=== PATIENT | female | born 1960 | race Caucasian/White ===

== ENCOUNTER 2017-02-07 19:10 | Emergency (ER) | payer MEDICARE ==
[~2017-02-07] VITALS: Ht 160 cm; Wt 55.9 kg
[~2017-02-07 19:10] MED LIST: ALBU8.5H4 IH; BISA-67 PO; CARV12.5 PO; CHOL10008 PO; CYA1000I IM; DIGO125T73 PO; FENT-2 TRANSDERM; FLUT9.9S NS; FURO40TA4 PO; HYDR25CA PO; IPRA3AMP IH; LANS30CA PO; LISI2.5T PO; LORA1TAB PO; MAGN400T29 PO; MIRT30TA6 PO; MS15TCR PO; POLY17PO6 PO; PRAM0.5T3 PO; QUET100T PO; QUET25TA PO; VENL37.53 PO; WARF5TAB7 PO; ZIT250 PO; ZOF8 PO
[2017-02-07 19:42] VITALS: BP 125/82; PULSE 79; RESP 16; O2SAT 98
[2017-02-07 20:18] LABS: BASOPHILS % (AUTO) 0.6 % (0-3); EOSINOPHILS % (AUTO) 0 % (0-5); Mean Corpuscular Hemoglobin 27.1 pg (27.0-35.0); Mean Corpuscular Volume 81.1 fL (81-100); NEUTROPHILS % (AUTO) 57.3 % (40-74); Platelet Count 207 bil/L (150-400)
[2017-02-07 20:34] LABS: Magnesium 2.2 mg/dL (1.6-2.6)
--- NOTE | 2017-02-07 22:35 | ED.REPORT ---
HPI-General Illness Date of Service February 07, 2017 ED Provider: Nico SherO. This is a very pleasant 56-year-old female who presents with cough, sputum production and burning with urination. She states she has been coughing for the past several days. She has been compliant with her medications including her warfarin. She has not had any hemoptysis. She has not had any chest pain or shortness of breath. She states that she also has chronic rectal discharge related to a colonic mass that she is having addressed later this week. Nursing Notes Stated Complaint: POSSIBLE INFECTION ON BUM, TROUBLE BREATHING Chief Complaint: General Complaint Nursing Notes Reviewed: Yes Allergies: Coded Allergies: NSAIDS (Non-Steroidal Anti-Inflamma (Verified Allergy, Severe, 02/07/17) Quinolones (Verified Allergy, Severe, ? AVALOX, 02/07/17) ceftriaxone sodium (Verified Allergy, Severe, 02/07/17) codeine (Verified Allergy, Severe, 02/07/17) ibuprofen (Verified Allergy, Severe, 02/07/17) metoclopramide (Verified Allergy, Severe, 02/07/17) metoclopramide HCl (Verified Allergy, Severe, 02/07/17) moxifloxacin HCl (Verified Allergy, Severe, 02/07/17) naproxen (Verified Allergy, Severe, 02/07/17) prochlorperazine edisylate (Verified Allergy, Severe, 02/07/17) prochlorperazine maleate (Verified Allergy, Severe, 02/07/17) sumatriptan (Verified Allergy, Severe, 02/07/17) sumatriptan succinate (Verified Allergy, Severe, 02/07/17) latex (Verified Allergy, Intermediate, RASH,when latex is on her skin for days, 02/07/17) Cephalosporins (Verified Adverse Reaction, Severe, N/V, 02/07/17) prednisone (Verified Adverse Reaction, Severe, PSYCHOSIS, 02/07/17) prochlorperazine (Verified Adverse Reaction, Severe, AGITATION, 02/07/17) Uncoded Allergies: ADHESIVE TAPES (Allergy, Unknown, 12/24/14) Adhesive tape (Adverse Reaction, Intermediate, rash, 05/26/15) NSAIDS (Adverse Reaction, Unknown, lupus anticoagulation & bleeding disorder IGA defiency, 12/26/14) Scheduled Azithromycin (Zithromax) 250 Mg Tablet 250 MG PO mon,wed,fri Bisacodyl (Dulcolax) 5 Mg Tablet.dr 5 MG PO DAILY Carvedilol (Coreg) 12.5 Mg Tablet 12.5 MG PO BIDWM Cholecalciferol (Vitamin D3) (Vitamin D3) 1,000 Unit Tab.chew 1,000 UNIT PO DAILY Cyanocobalamin (Cyanocobalamin Injection) 1,000 Mcg/1 Ml Vial 1,000 MCG IM Monthly Digoxin (Digoxin) 125 Mcg Tablet 125 MCG PO DAILY Fentanyl 75 mcg/hr Patch (Fentanyl 75 mcg/hr Patch) 1 Each Patch.td72 1 PATCH TRANSDERM Q3D Fluticasone Propionate (Flonase Allergy Relief) 50 Mcg/Actuation [place].susp 1 ML NS BID Furosemide (Furosemide) 40 Mg Tablet 40 MG PO DAILY Hydroxyzine Pamoate (Vistaril) 25 Mg Capsule 25 MG PO QID Lansoprazole (Lansoprazole) 30 Mg Capsule.dr 30 MG PO DAILYAC Lisinopril (Lisinopril) 2.5 Mg Tablet 2.5 MG PO DAILY Lorazepam (Lorazepam) 1 Mg Tablet 1-2 MG PO 4xdaily Magnesium Oxide (Magox 400) 400 Mg Tablet 400 MG PO BID Mirtazapine (Mirtazapine) 30 Mg Tablet 60 MG PO HS Morphine Sulfate ER (MS Contin) 15 Mg Tablet.er 15 MG PO QID Polyethylene Glycol 3350 (Miralax) 17 Gm Powd.pack 17 GM PO MORNING Pramipexole Dihydrochloride (Mirapex) 0.5 Mg Tablet 0.5 MG PO HS Quetiapine Fumarate (Seroquel) 100 Mg Tablet 50 MG PO QAM AND NOON Quetiapine Fumarate (Seroquel) 100 Mg Tablet 200 MG PO HS Quetiapine Fumarate (Seroquel) 25 Mg Tablet 25 MG PO DINNER Venlafaxine ER (Effexor XR) 37.5 Mg Cap.er.24h 37.5 MG PO BID Warfarin Sodium (Warfarin Sodium) 5 Mg Tablet 5 MG PO DAILY Scheduled PRN Albuterol HFA (Albuterol HFA) 8.5 Gm Hfa.aer.ad 2 PUFF IH TID PRN PRN For Shortness of Breath Ipratropium/Albuterol Sulfate (Iprat-Albut 0.5-3(2.5) mg/3 mL Inhalant Soln) 3 Ml Ampul.neb 3 ML IH Q6 PRN PRN For Shortness of Breath Ondansetron (Zofran) 8 Mg Tab 8 MG PO QID PRN PRN For Nausea General Time Seen by MD: 22:34 Chief Complaint Cough Hx Obtained From: Patient Arrived By: Walk-in Sudden in Onset?: Yes Onset Occurred: 1 week ago Symptom Duration: Since onset Location: : Abdomen Quality: Painful Severity: Current: Moderate Severity: Maximum: Moderate Pertinent Negative: Relieved by nothing Context Related History: Reports Autoimmune disorder, Reports COPD, Reports Drug dependence Recent Healthcare: No recent doctor visit Past Medical History Past Medical History Notes: Pt hospitalized in May of 2015 for CP rule-out. Past Medical History History of chronic systolic and diastolic heart failure with AICD pacemaker History of a benign appearing pancreatic neoplasm (GI notes 11/2014 indicate stable over several years in size, although a recommendation for fine needle aspiration was made at that time) Lupus anticoagulation History of IgA deficiency Rectocele prolapse Hemorrhoids - with admission January 19 through January 25 for bleeding, and hemorrhoidectomy following a hemorrhoidectomy and pain H/o diverticulitis and C. Diff H/o pancreatitis H/o pericarditis History of prior C. difficile History of malabsorption History of chronic pain and narcotic use Colon mass Reports: COPD, Congestive heart failure, Hypertension Past Surgical History AICD pacemaker placed Bladder suspension Hemorrhoidectomy 12/27/14, status post rectal exam and flexible sigmoidoscopy under general anesthesia on 01/20/2015 for bleeding Sinus surgery Foot surgery Reports: Cholecystectomy, Hysterectomy, Tonsillectomy Smoking History Former Smoker Social History Alcohol Use: Denies alcohol use Drug Use: THC Ambulatory Status Independent Review of Systems + Greenish purulent rectal discharge Full Review of Systems Constitutional: Denies: Fever, Weakness - generalized Eyes: Denies: Blurred left, Blurred right Respiratory: Reports: Prod cough, green, Prod cough, yellow, Denies: Dyspnea on exertion, Hemoptysis Cardiovascular: Denies: Chest pain, Dyspnea on exertion GI: Reports: Nausea, Denies: Abdominal pain, Diarrhea, Vomiting Female: Reports: Urinary frequency, Denies: Flank pain Musculoskeletal: Denies: Back pain Complete sys rev & neg: except as marked. Physical Exam Vital Signs Vital Signs Date Time Temp Pulse Resp B/P Pulse Ox O2 Delivery O2 Flow Rate FiO2 5/9/17 01:55 36.9 75 15 124/78 98 Room Air 02/07/17 19:42 36.9 79 16 125/82 98 Room Air Initial VS: Reviewed Head / Eyes: Atraumatic, Normocephalic ENT: Conjunctiva normal, No scleral icterus Neck: Supple, Full range of motion Abdomen / GI: Soft, Non-tender Skin: Warm, Dry, No cyanosis Neurologic: Alert, Oriented, Nonfocal Psychiatric: Mood/affect normal, Behavior normal, Normal thought content Respiratory / Chest: No respiratory distress Crackles left base Cardiovascular: Heart rate NL, Regular rhythm, Heart sounds NL Rectum / Perineum: Atraumatic, No gross blood Interpretation & Diagnostics Lab Results Interpretation Result Diagram: 02/07/17200002/07/172000 Test 02/07/17 20:01 02/08/17 00:30 White Blood Count 5.0th/mm3 (3.8-10.1) Red Blood Count 4.54mil/mm3 (3.90-5.20) Hemoglobin 12.3g/dL (12.0-15.6) Hematocrit 36.8% (35.0-46.0) Mean Corpuscular Volume 81.1fL (81-100) Mean Corpuscular Hemoglobin 27.1pg (27.0-35.0) Mean Corpuscular Hemoglobin Concent 33.4% (32.0-37.0) Red Cell Distribution Width 14.7% (12.3-15.4) Platelet Count 207bil/L (150-400) Neutrophils (%) (Auto) 57.3% (40-74) Lymphocytes (%) (Auto) 36.1% (14-46) Monocytes (%) (Auto) 6.0% (4-12) Eosinophils (%) (Auto) 0% (0-5) Basophils (%) (Auto) 0.6% (0-3) Prothrombin Time 18.3sec (8.1-12.5) Prothromb Time International Ratio 1.69ratio D-Dimer < 0.50mg/L FEU (<0.50) Sodium Level 137mEq/L (134-144) Potassium Level 3.8mEq/L (3.5-5.2) Chloride Level 98mEq/L (97-108) Carbon Dioxide Level 27mmol/L (18-29) Blood Urea Nitrogen 14mg/dL (6-24) Creatinine 1.04mg/dL (0.57-1.00) Estimat Glomerular Filtration Rate 79mL/min (>59) Glucose Level 94mg/dL (60-99) Calcium Level 9.1mg/dL (8.5-10.1) Magnesium Level 2.2mg/dL (1.6-2.6) Total Bilirubin 0.3mg/dL (0.0-1.2) Aspartate Amino Transf (AST/SGOT) 14U/L (0-50) Alanine Aminotransferase (ALT/SGPT) 13U/L (0-32) Alkaline Phosphatase 92U/L (25-150) Total Protein 7.6g/dL (6.4-8.4) Albumin 3.6g/dL (3.4-5.0) Hold Rosario Top Tube Received (Received) Urine Color Dark yellow (YELLOW) Urine Appearance Hazy (CLEAR,HAZY) Urine pH 6.0 (5.0-8.0) Urine Specific [place] 1.025 (1.003-1.035) Urine Protein Negativemg/dL (NEG,TRACE) Urine Glucose (UA) Negativemg/dL (NEGATIVE) Urine Ketones Negativemg/dL (NEGATIVE) Urine Occult Blood Negative (NEGATIVE) Urine Nitrite Negative (NEGATIVE) Urine Bilirubin Negative (NEGATIVE) Urine Urobilinogen Normalmg/dL (NORMAL) Urine Leukocyte Esterase Small (NEGATIVE) Urine RBC 0-2/hpf (0-2) Urine WBC 11-50/hpf (0-5) Urine Epithelial Cells Moderate/hpf (NONE-MOD) Urine Crystals None seen (NONE SEEN) Urine Bacteria None/hpf (NONE-FEW) Urine Hyaline Casts None/lpf (NONE) Urine Granular Casts None seen (NONE SEEN) Urine Waxy Casts None seen (NONE SEEN) Urine Red Blood Cell Casts None seen (NONE SEEN) Urine White Blood Cell Casts None seen (NONE SEEN) Urine Mucus Present (None Seen) Urine Trichomonas None seen (NONE SEEN) Urine Yeast None (NONE SEEN) Urine Culture Reflexed Indicated X-Ray Chest Interpretation Chest Xray Interpretation: Nothing acute View: AP & lat Interpretation / Wet Read by: Wet read ED physician Re-Eval/Medical Decision Med Decision/Clinical Course Chest x-ray does not show any lobar infiltrate. No pneumothorax is seen either. Urinalysis is consistent with a urinary tract infection. Trupti will be medicated with Augmentin. This should cover both genitourinary and chest pathology. I will ask her to have very close outpatient follow-up. I considered pulmonary emboli in the differential diagnosis. Her Wells score is low risk. She has been on warfarin and she has a negative d-dimer and no pleuritic pain. I do not feel that CT imaging is indicated at this time. I feel that with a negative d-dimer and her Wells score PE can be adequately ruled out because she is low risk. I do recommend very close outpatient follow- up however. Going to increase her dose of warfarin for tonight and then she will have her INR repeated while on the course of antibiotics as instructed. Source of Hx: Old records Time of Eval: 01:35 Patient Status: Condition improved Re-Evaluation/Progress Note: Discussed with patient x-ray and lab results, diagnosis, and plan for discharge. Follow-up and return to the ER instructions given. Patient agrees with plan for care and all questions were addressed. Counseled Regarding: Diagnosis, Lab results, Need for follow-up, When/why to return to ED Discharge & Departure Primary Impression: UTI (urinary tract infection) Urinary tract infection type: acute cystitis Hematuria presence: without hematuria Qualified Code: N30.00 - Acute cystitis without hematuria Additional Impression: Bronchitis Disposition: Home Discharge Condition All VS Reviewed: Yes Condition: Improved Patient Instructions: Acute Bronchitis (GEN), Urinary Tract Infection in Women (GEN) Additional Instructions: Thank you for entrusting us with your care. Please take Augmentin twice daily for seven days. Drink plenty of liquids to remain hydrated. Call your primary care provider tomorrow for a follow-up appointment this week. Return to the ER with any new or worsening symptoms. Your INR is only 1.7. Take an additional dose of warfarin tonight. I would like you to have your INR checked in 3 days. The antibiotics may alter the efficacy. Also have it checked again at the end of the course of antibiotics. Discuss with your primary care physician or the warfarin clinic what to do with your warfarin dosing. You have received a dose of Dilaudid the emergency department. Do not take any other opiates. Do not take any other sedating medications. Referrals: Cristobal Berkowitz MD (PCP) Scribe Attestation Portions of this note were transcribed by Keiry Pederson. I, Dr. Hernandez, personally performed the history, physical exam, and medical decision-making; I reviewed and confirmed the accuracy of the information in the transcribed note. Signed by: Octavio Ross, 02/08/2017, 02:20 copies to: Cristobal Berkowitz MD, Todd P DO February 07, 2017 22:35 KEIRY PEDERSON February 07, 2017 23:26
[2017-02-07] MEDS ORDERED: HYDROmorphone 0.5 mg/0.5 mL iSecure Syringe IVPUSH ONE (23:25)
[2017-02-07 23:51] LABS: INR 1.69 ratio
[2017-02-08] MEDS ORDERED: Ondansetron 8 mg ODT Tablet PO ONE (00:45)
[2017-02-08 00:53] LABS: APPEARANCE,URINE HAZY (CLEAR,HAZY); COLOR,URINE DARK YELLOW (YELLOW); OCCULT BLOOD,URINE NEGATIVE (NEGATIVE); UROBILINOGEN,URINE NORMAL (NORMAL)
[2017-02-08] MEDS ORDERED: Amoxicillin-Clav 875-125 mg Tablet PO ONE (01:00)
[2017-02-08 01:55] VITALS: BP 124/78; PULSE 75; RESP 15; O2SAT 98
--- NOTE | 2017-02-09 11:46 | DRSVH ---
PROCEDURE: X-RAY CHEST, TWO VIEWS ([id number]) INDICATIONS: cough TECHNIQUE: 2 views of the chest were acquired. COMPARISON: [facility], CR, XR CHEST 2VW, 09/22/2015, 13:55. FINDINGS: Surgical changes and devices: Left cardiac pacer. Lungs and pleura: No pleural effusions or pneumothorax. Lungs are clear. Mediastinum: Mediastinal contours are normal. Heart size is normal. Bones and chest wall: No suspicious bony abnormalities. Soft tissues appear unremarkable. IMPRESSION: Stable normal chest with left cardiac pacer. Dictated by: Jose Szymanski M.D. on 02/08/2017 at 7:59 Approved by: Jose Szymanski M.D. on 02/08/2017 at 8:00
[2017-02-23] MEDS ORDERED: BISA-67 PO (15:22)
[2017-02-23] MEDS ORDERED: SENN-133 PO (15:22)
[2017-02-23] MEDS ORDERED: QUET100T PO (15:22)
[2017-02-23] MEDS ORDERED: ALBU8.5H2 INHALATION (15:22)
[2017-02-23] MEDS ORDERED: IPRA3AMP IH (15:22)
[2017-02-23] MEDS ORDERED: DOCU250C2 PO (15:22)
[2017-02-23] MEDS ORDERED: QUET25TA PO (15:22)
[2017-02-23] MEDS ORDERED: MIRT30TA PO (15:22)
[2017-03-02] MEDS ORDERED: HYDR-656 PO (13:35)
[2017-03-02] MEDS ORDERED: MIRT30TA PO (13:35)
== END 2017-02-08 01:55 | disposition home or self-care (01) ==
LOC: SED 19:10
DX: N30.00 Acute cystitis without hematuria (principal); J44.0 Chronic obstructive pulmonary disease with (acute) lower respiratory infection; I10 Essential (primary) hypertension; I50.9 Heart failure, unspecified; D68.62 Lupus anticoagulant syndrome; R30.0 Dysuria; K63.89 Other specified diseases of intestine; F12.10 Cannabis abuse, uncomplicated; Z95.0 Presence of cardiac pacemaker; Z87.891 Personal history of nicotine dependence; Z79.51 Long term (current) use of inhaled steroids; Z79.01 Long term (current) use of anticoagulants; Z88.6 Allergy status to analgesic agent; Z88.5 Allergy status to narcotic agent; Z88.1 Allergy status to other antibiotic agents; Z88.8 Allergy status to other drugs, medicaments and biological substances

== ENCOUNTER 2017-02-24 11:41 | Day surgery (SDC) | payer MEDICARE ==
[~2017-02-24] VITALS: Ht 162.6 cm; Wt 57.6 kg
[~2017-02-24 11:41] MED LIST changes: +ALBU8.5H2 INHALATION; -CARV12.5 PO; -DIGO125T73 PO; +DOCU250C2 PO; -HYDR25CA PO; +Lactated Ringer's 1,000 ML IV ONE; +MIRT30TA PO; +SENN-133 PO; -ZIT250 PO
[2017-02-24] MEDS ORDERED: Propofol 10,000 mCg/mL 20 mL Inj ONE (11:42)
[2017-02-24] MEDS ORDERED: Lidocaine PF 1% 30 mL Inj ONE (11:42)
[2017-02-24 11:58] VITALS: BP 109/71; PULSE 75; RESP 14; O2SAT 97
--- NOTE | 2017-02-24 12:30 | PCM.HPANE ---
Patient Data Date of Service: February 24, 2017 Surgeon Admitting Provider: Attending Provider:Mynor Cormier MD Primary Care Physician:Cristobal Berkowitz MD Other Provider:Tarun Booth Anesthesia Reason for Visit Colon Wall Thickening Ht/WT & BMI Height (Feet): 5 Height (Inches): 4 Weight (Kilograms): 57.61 Body Mass Index 21.00 Allergies Coded Allergies: NSAIDS (Non-Steroidal Anti-Inflamma (Verified Allergy, Severe, 02/07/17) Quinolones (Verified Allergy, Severe, ? AVALOX, 02/07/17) ceftriaxone sodium (Verified Allergy, Severe, 02/07/17) codeine (Verified Allergy, Severe, 02/07/17) ibuprofen (Verified Allergy, Severe, 02/07/17) metoclopramide (Verified Allergy, Severe, 02/07/17) metoclopramide HCl (Verified Allergy, Severe, 02/07/17) moxifloxacin HCl (Verified Allergy, Severe, 02/07/17) naproxen (Verified Allergy, Severe, 02/07/17) prochlorperazine edisylate (Verified Allergy, Severe, 02/07/17) prochlorperazine maleate (Verified Allergy, Severe, 02/07/17) sumatriptan (Verified Allergy, Severe, 02/07/17) sumatriptan succinate (Verified Allergy, Severe, 02/07/17) latex (Verified Allergy, Intermediate, RASH,when latex is on her skin for days, 02/07/17) diphenhydramine (Verified Allergy, Unknown, 02/23/17) levofloxacin (Verified Allergy, Unknown, 02/23/17) Cephalosporins (Verified Adverse Reaction, Severe, N/V, 02/07/17) prednisone (Verified Adverse Reaction, Severe, PSYCHOSIS, 02/07/17) prochlorperazine (Verified Adverse Reaction, Severe, AGITATION, 02/07/17) Uncoded Allergies: ADHESIVE TAPES (Allergy, Unknown, 12/24/14) Adhesive tape (Adverse Reaction, Intermediate, rash, 05/26/15) NSAIDS (Adverse Reaction, Unknown, lupus anticoagulation & bleeding disorder IGA defiency, 12/26/14) Past Anesthesia History Anesthesia History: Positive for:: Anesthesia Reactions (Per pt, coded X5 IN 2016. Records note brief wide complex tachycardia. CHF post-op), Denies:: Abnormal Airway, Difficult Intubation, Fam Anesthesia Reaction, Fam Malignant Hypertherm, Malignant Hyperthermia Diabetes History Hx Diabetes?: No MRSA MRSA: Yes (2015/[facility]MPI) Medications Blood Thinner: Coumadin Last Dose Blood Thinner: February 17, 2017 Home Meds Incl Beta Kishan: No Active Scripts Polyethylene Glycol 3350 (Miralax)17 Gm Powd.pack17 Gm PO MORNING 14 Days Prov:Ayden Brown MD 05/25/16 Reported Medications Sennosides (Senna)8.6 Mg Tablet8.6 Mg PO PRN For Constipation 02/23/17 Albuterol HFA (Proair HFA)8.5 Gm Hfa.aer.ad2 Puffs INHALATION Q4H #1 INHALER 02/23/17 Ipratropium/Albuterol Sulfate (Iprat-Albut 0.5-3(2.5) mg/3 mL Inhalant Soln)3 Ml Ampul.neb3 Ml IH Q6 Ref 0 02/23/17 Warfarin Sodium 5 Mg Tablet5 Mg PO DAILY Ref 0 06/02/16 Furosemide 40 Mg Fpjztr86 Mg PO DAILY 06/02/16 Lisinopril 2.5 Mg Tablet2.5 Mg PO DAILY Ref 0 06/02/16 Fentanyl 75 mcg/hr Patch 1 Each Patch.td721 Patch TRANSDERM Q3D Ref 0 06/02/16 Mirtazapine 30 Mg Ikvaef84 Mg PO HS Ref 0 11/12/15 Cholecalciferol (Vitamin D3) (Vitamin D3)1,000 Unit Tab.chew1,000 Unit PO DAILY 05/26/15 Fluticasone Propionate (Flonase Allergy Relief)50 Mcg/Actuation [place].susp1 Ml NS BID 05/26/15 Quetiapine Fumarate (Seroquel)100 Mg Bwfoti193 Mg PO HS #30 TABLET Ref 0 02/23/15 Quetiapine Fumarate (Seroquel)100 Mg Zdpzde30 Mg PO QAM AND NOON 30 Days Ref 0 02/23/15 Bisacodyl (Dulcolax)5 Mg Tablet.dr5 Mg PO DAILY Ref 0 02/23/15 Cyanocobalamin (Cyanocobalamin Injection)1,000 Mcg/1 Ml Vial1,000 Mcg IM Monthly 02/23/15 Morphine Sulfate ER (MS Contin)15 Mg Tablet.er15 Mg PO QID 30 Days Ref 0 02/14/15 Pramipexole Dihydrochloride (Mirapex)0.5 Mg Tablet0.5 Mg PO HS 02/14/15 Magnesium Oxide (Magox 400)400 Mg Jkcjbq869 Mg PO BID 02/14/15 Lorazepam 1 Mg Tablet1-2 Mg PO 4xdaily Ref 0 02/14/15 Lansoprazole 30 Mg Capsule.dr30 Mg PO DAILYAC #30 CAPSULE Ref 0 02/14/15 Ipratropium/Albuterol Sulfate (Iprat-Albut 0.5-3(2.5) mg/3 mL Inhalant Soln)3 Ml Ampul.neb3 Ml IH Q6 PRN For Shortness of Breath Ref 0 02/14/15 Albuterol HFA 8.5 Gm Hfa.aer.ad2 Puff IH TID PRN For Shortness of Breath #1 INHALER Ref 0 11/20/14 Venlafaxine ER (Effexor XR)37.5 Mg Cap.er.24h37.5 Mg PO BID #30 CAPSULE Ref 0 11/20/14 Ondansetron (Zofran)8 Mg Tab8 Mg PO QID PRN For Nausea 11/20/14 Discontinued Reported Medications Quetiapine Fumarate (Seroquel)100 Mg Dofonl598 Mg PO BID Ref 0 02/23/17 Mirtazapine (Remeron)30 Mg Kvgszx04 Mg PO HS Ref 0 02/23/17 Bisacodyl (Dulcolax)5 Mg Tablet.dr5 Mg PO DAILY PRN For Constipation Ref 0 02/23/17 Docusate Sodium 250 Mg Arpipal932 Mg PO DAILY PRN For Constipation Ref 0 02/23/17 Quetiapine Fumarate (Seroquel)25 Mg Gfcnln02 Mg PO DINNER 30 Days Ref 0 02/23/15 Quetiapine Fumarate (Seroquel)25 Mg Uaresl46 Mg PO TID Ref 0 02/23/17 Digoxin 125 Mcg Boijoz627 Mcg PO DAILY Ref 0 06/02/16 Azithromycin (Zithromax)250 Mg Tppbsb834 Mg PO mon,wed,fri Ref 0 06/02/16 Hydroxyzine Pamoate (Vistaril)25 Mg Tfjuutm09 Mg PO QID Ref 0 02/14/15 Discontinued Scripts Carvedilol (Coreg)12.5 Mg Zgtepm32.5 Mg PO BIDWM 30 Days Prov:Hollis Barrera MD 11/23/14 History History of ENT Problems?: Yes HEENT History: Positive for:: Sinus Problem (chronic sinus infections; 2 sinus OR's) Denies:: Abnormal Airway Cataracts Difficult Intubation Dysphagia Hearing Problem Denture Type: Full- Lower Teeth Condition: Missing Teeth Hx of Heart Problems?: Yes (regular follow-up with cardiology. Unclear what patient refers to with coding under anesthesia) Cardiovascular History: Positive for:: AICD Atrial Fibrillation Cardiac Surgery (AICD 2003, 2009) Congestive Heart Failure Edema Hypertension Irregular Heartbeat (did not noted when assessed) Pacemaker Denies:: Chest Pain Heart Murmur Thrombophlebitis Valvular Heart Disease Other Cardiac History: SEVERAL CARDIAC ABLATIONS Hx of Respiratory Problem?: Yes Respiratory History: Positive for:: COPD Dyspnea Pneumonia Denies:: Asthma Chest Surgery Cough Emphysema Hemoptysis Tuberculosis Hx Neurologic Problems?: Yes Neurological History: Positive for:: Headaches (migraines) Denies:: Alzheimer's Disease CVA Dementia Dizziness Parkinson's Disease Seizures Hx of GI Problems?: Yes Other GI Pertinent History: HX OF PANCREATIC MASS, HX OF HPYLORI AND CDIFF Hx of Problems?: No Genitourinary History: Positive for:: Urinary Tract Infection Denies:: HX of Hemodialysis Kidney Stones HX of Peritoneal Dialysis: No Female Hx: Positive for:: Endometriosis Pelvic Inflammatory Denies:: Currently (HYSTO) Problems with Breasts? Skin History: Denies:: History Skin Disorders? Pressure Ulcers Hx Musculoskeletal Problems?: Yes Musculoskeletal History: Positive for:: Back Injury Fibromyalgia Denies:: Joint Replacement Musculoskeletal Trauma Hx of Psycho/Social Problems?: Yes Psycho Social History: Positive for:: Anxiety Hx Depression Denies:: Bipolar Disorder Suicide Attempt Hx Surgeries?: Yes (AICD x2, CARDIAC ABLATION, SINUS, HYSTO, TONSIL, ORAL, BLADDER/UTERUS ) Hx Any Other Health Problems?: Yes Other History: Positive for:: Hospitalization Denies:: Cancer Endocrine Disease Thyroid Disease History Blood Transfusions: Denies:: Blood Transfuse Reaction Blood Transfusions Hx Diabetes: No Hx Alcohol Use: NoHx Substance Use: Yes (marijuana) Smoking Status: Former Smoker Have You Smoked inLast 12 mo: Yes (vape/e-cig only every once in awhile) Stop/Bang Treated for Sleep Apnea?: Yes Do You Have a CPAP Machine?: Yes (COMPLIANT WITH NIGHTLY USE) STACEY Risk Assessment: Low Risk, <3 Yes Risk Assessment Category Category 1A: Patient has history of documented sleep apnea, and HAS NOT received any narcotic, sedative or anesthesia administration during this stay. Category 1B: Patient has history of documented sleep apnea, and HAS received any narcotic , sedative or anesthesia administration during this stay Category 2: Patient has SUSPECTED Obstructive Sleep Apnea, and HAS received any narcotic , sedative or anesthesia administration during this stay. Category 3: Patient has SUSPECTED Obstructive Sleep Apnea and HAS NOT received narcotic, sedative or anesthesia administration during this stay. Category 4: Outpatient in Procedural Areas with known sleep apnea or who screen positive for High Risk via the STOP/BANG questionnaire. Exam Exam Vital Signs Vital Signs Date Time Temp Pulse Resp B/P Pulse Ox O2 Delivery O2 Flow Rate FiO2 02/24/17 11:58 36.5 75 14 109/71 97 Room Air General Appearance: Alert, Oriented X3, Cooperative HEENT/AIRWAY: MP 2, Neck Movement (OK), Mouth Opening (Wide) Lungs: Clear to Auscultation, Normal Air Movement Heart: Regular Rate/Rhythm, Normal S1, Normal S2 Meds/Labs/Diagnostics Admission Meds Current Medications Lactated Ringer's (Lr) 1,000 ml @ 10 mls/hr Q24H ONCE IV Last administered on 02/24/17t 12:22; Start 02/24/17 at 06:00; Stop 02/25/17 at 05:59 Diagnositcs Echo reviewed, EF 45%. Old records from [facility] reviewed, no evidence of "coding". Does show CHF during diagnosis Plan Impression Patient chart reviewed, patient interviewed and anesthestic plan with risks, benefits, and alternatives discussed, and informed consent obtained. NPO per Anesth. Guidelines: Yes ASA Physical Status: ASA3 Severe Disease Anesthetic Plan: MAC Bene/Risks/Altern/Consents: Yes HP Complete Prior to Induction: Yes Nirav Gaytan MD February 24, 2017 12:30
[2017-02-24 13:00] VITALS: BP 99/54; PULSE 79; RESP 16; O2SAT 97
[2017-02-24 13:10] VITALS: BP 109/60; PULSE 76; RESP 16; O2SAT 96
--- NOTE | 2017-02-24 13:11 | ENDO ---
[address] [address] ENDOSCOPY PROCEDURE PATIENT: KEYANNA MYERS : 1960 MR#: [id number] ADMIT: 02/24/2017 JOB ID: [id number] DATE: 02/24/2017 PROCEDURE: Colonoscopy. INDICATIONS: The patient had a CT scan which revealed colonic wall thickening. ANESTHESIA: Please see Dr. Nirav Gaytan's anesthesia report for details regarding ASA classification, Mallampati score, and medications. INSTRUMENT USED: [id number]. PREP QUALITY: Good. PROCEDURE DETAILS: After informed consent was obtained, the patient was brought into the GI suite, where she was placed on oxygen via nasal cannula and monitored with continuous pulse oximeter, telemetry, and blood pressure monitoring. A time-out was performed. Then, she was placed in a left lateral decubitus position and medications were administered for sedation. Digital rectal exam was performed, which was unremarkable. The colonoscope was then inserted into the rectum and advanced under direct visualization to the cecum, which was identified by the presence of the ileocecal valve and appendiceal orifice. Once the cecum was reached, colonoscope was withdrawn back into the rectum as the mucosa and lumen were examined. In the rectum, retroflexion was performed. Following retroflexion, remaining air in the rectum was suctioned, and procedure was completed. FINDINGS: Normal exam from rectum to cecum. IMPRESSION: Normal colonoscopy. RECOMMENDATIONS: 1. Keep appointment for EUS exam that has been scheduled. 2. Follow up in GI clinic after EUS exam. COMPLICATIONS: None. ESTIMATED BLOOD LOSS: Zero.
--- NOTE | 2017-02-24 13:12 | PCM.ANEP1 ---
Post Anesthesia PACU Phase 1 Assessment Date of Service: February 24, 2017 Vital Signs Vital Signs Date Time Temp Pulse Resp B/P Pulse Ox O2 Delivery O2 Flow Rate FiO2 02/24/17 13:00 36.4 79 16 99/54 97 Room Air 02/24/17 11:58 36.5 75 14 109/71 97 Room Air Anesthetic Administered: MAC Level of Alertness: Awake, talking NAVA's with Equal Strength: No Pain: Yes (chronic on fentanyl) Nausea or Vomiting: No CV Function & Hydration Stable: Yes Airway Device: Oxygen Delivery: Room Air Lungs: Normal Air Movement PACU Phase 2 Assessment Complications: No Follow up Care: No Patient Instructions Provided: N/A Nirav Gaytan MD February 24, 2017 13:12
[2017-02-24] MEDS ORDERED: Lactated Ringer's 1,000 ML IV SCH (13:18)
[2017-02-24 13:20] VITALS: BP 115/59; PULSE 78; RESP 16; O2SAT 96
[2017-02-24] MEDS ORDERED: Ondansetron 2 mg/mL 2 mL Inj IVPUSH PRN (13:20)
[2017-02-24 13:30] VITALS: BP 136/79; PULSE 70; RESP 16; O2SAT 98
[2017-02-24 13:40] VITALS: BP 104/71; PULSE 68; RESP 16; O2SAT 98
--- NOTE | 2017-02-24 15:15 | DRSVH ---
PROCEDURE: X-RAY ABDOMEN, ONE VIEW ([id number]) INDICATIONS: abdominal pain post colonoscopy TECHNIQUE: One view of the abdomen acquired. COMPARISON: [facility], CR, XR CHEST 1VW (PORTABLE), 05/27/2015, 6:13. [facility], CR, ABD/AP 1VW, 05/23/2013, 8:34. FINDINGS: Surgical changes and devices: Cholecystectomy clips and likely partially visualized pacer wires noted . Bowel: Bowel gas pattern is normal. Soft tissues: No suspicious abdominal calcifications. Visualized solid organ contours appear normal in size. Bones: No suspicious bony lesions. IMPRESSION: Unremarkable exam. Dictated by: Gwendolyn Joseph M.D. on 02/24/2017 at 15:13 Approved by: Gwendolyn Joseph M.D. on 02/24/2017 at 15:14
--- NOTE | 2017-02-24 16:27 | DRSVH ---
PROCEDURE: X-RAY CHEST ONE VIEW, PORTABLE ([id number]) INDICATIONS: abdominal pain TECHNIQUE: One view of the chest was acquired. COMPARISON: [facility], CR, XR CHEST 2VW, 02/07/2017, 23:31. FINDINGS: Surgical changes and devices: Pacemaker. Lungs and pleura: No pleural effusions or pneumothorax. Lungs are clear. Mediastinum: Mediastinal contours appear normal. Heart size is normal. Bones and chest wall: No suspicious bony lesions. Overlying soft tissues appear unremarkable. IMPRESSION: No acute pulmonary process. Dictated by: Gwendolyn Joseph M.D. on 02/24/2017 at 16:25 Approved by: Gwendolyn Joseph M.D. on 02/24/2017 at 16:26
[2017-03-02] MEDS ORDERED: MIRT30TA PO (13:35)
[2017-03-02] MEDS ORDERED: HYDR-656 PO (13:35)
== END 2017-02-24 23:59 | disposition home or self-care (01) ==
LOC: END 11:41
PROVIDERS: ATTEND Internal Medicine Gastroenterology
DX: K63.9 Disease of intestine, unspecified (principal); K86.9 Disease of pancreas, unspecified; I10 Essential (primary) hypertension; I50.9 Heart failure, unspecified; I47.2 Ventricular tachycardia; E78.5 Hyperlipidemia, unspecified; J44.9 Chronic obstructive pulmonary disease, unspecified; F41.8 Other specified anxiety disorders; G89.4 Chronic pain syndrome; F12.90 Cannabis use, unspecified, uncomplicated; Z95.0 Presence of cardiac pacemaker; Z86.14 Personal history of Methicillin resistant Staphylococcus aureus infection; Z79.01 Long term (current) use of anticoagulants; Z87.891 Personal history of nicotine dependence
CPT/HCPCS: 45378; 71010; 74000; J2405; J7120

== ENCOUNTER 2017-03-03 07:25 | Day surgery (SDC) | payer MEDICARE ==
[~2017-03-03] VITALS: Ht 162.6 cm; Wt 57.6 kg
[2017-03-03] VITALS (24 sets, daily range): BP systolic 108–170; BP diastolic 60–101; PULSE 65–83; RESP 14–16; O2SAT 96–100
--- NOTE | 2017-03-03 07:24 | PCM.HPANE ---
Patient Data Surgeon Admitting Provider: Attending Provider:Mynor Cormier MD Primary Care Physician:Cristobal Berkowitz MD Other Provider:Tarun Booth Anesthesia Reason for Visit Pancreatic Mass Ht/WT & BMI Body Mass Index Allergies Coded Allergies: NSAIDS (Non-Steroidal Anti-Inflamma (Verified Allergy, Severe, 02/07/17) Quinolones (Verified Allergy, Severe, ? AVALOX, 02/07/17) ceftriaxone sodium (Verified Allergy, Severe, 02/07/17) codeine (Verified Allergy, Severe, 02/07/17) ibuprofen (Verified Allergy, Severe, 02/07/17) metoclopramide (Verified Allergy, Severe, 02/07/17) metoclopramide HCl (Verified Allergy, Severe, 02/07/17) moxifloxacin HCl (Verified Allergy, Severe, 02/07/17) naproxen (Verified Allergy, Severe, 02/07/17) prochlorperazine edisylate (Verified Allergy, Severe, 02/07/17) prochlorperazine maleate (Verified Allergy, Severe, 02/07/17) sumatriptan (Verified Allergy, Severe, 02/07/17) sumatriptan succinate (Verified Allergy, Severe, 02/07/17) latex (Verified Allergy, Intermediate, RASH,when latex is on her skin for days, 02/07/17) diphenhydramine (Verified Allergy, Unknown, 02/23/17) levofloxacin (Verified Allergy, Unknown, 02/23/17) Cephalosporins (Verified Adverse Reaction, Severe, N/V, 02/07/17) prednisone (Verified Adverse Reaction, Severe, PSYCHOSIS, 02/07/17) prochlorperazine (Verified Adverse Reaction, Severe, AGITATION, 02/07/17) Uncoded Allergies: ADHESIVE TAPES (Allergy, Unknown, 12/24/14) Adhesive tape (Adverse Reaction, Intermediate, rash, 05/26/15) NSAIDS (Adverse Reaction, Unknown, lupus anticoagulation & bleeding disorder IGA defiency, 12/26/14) Past Anesthesia History Anesthesia History: Positive for:: Anesthesia Reactions, Denies:: Abnormal Airway, Difficult Intubation, Fam Anesthesia Reaction, Fam Malignant Hypertherm, Malignant Hyperthermia Diabetes History Hx Diabetes?: No MRSA MRSA: Yes (2015/) Medications Blood Thinner: Coumadin Active Scripts Polyethylene Glycol 3350 (Miralax)17 Gm Powd.pack17 Gm PO MORNING 14 Days Prov:Ayden Brown MD 05/25/16 Reported Medications Mirtazapine (Remeron)30 Mg Edqfah88 Mg PO HS Ref 0 03/02/17 Sennosides (Senna)8.6 Mg Tablet8.6 Mg PO PRN For Constipation 02/23/17 Albuterol HFA (Proair HFA)8.5 Gm Hfa.aer.ad2 Puffs INHALATION Q4H #1 INHALER 02/23/17 Ipratropium/Albuterol Sulfate (Iprat-Albut 0.5-3(2.5) mg/3 mL Inhalant Soln)3 Ml Ampul.neb3 Ml IH Q6 Ref 0 02/23/17 Warfarin Sodium 5 Mg Tablet5 Mg PO DAILY Ref 0 06/02/16 Furosemide 40 Mg Nhwpgi95 Mg PO DAILY 06/02/16 Lisinopril 2.5 Mg Tablet2.5 Mg PO DAILY Ref 0 06/02/16 Fluticasone Propionate (Flonase Allergy Relief)50 Mcg/Actuation [place].susp1 Ml NS BID 05/26/15 Quetiapine Fumarate (Seroquel)100 Mg Submpw859 Mg PO HS #30 TABLET Ref 0 02/23/15 Quetiapine Fumarate (Seroquel)100 Mg Mhokhy64 Mg PO QAM AND NOON 30 Days Ref 0 02/23/15 Bisacodyl (Dulcolax)5 Mg Tablet.dr5 Mg PO DAILY Ref 0 02/23/15 Cyanocobalamin (Cyanocobalamin Injection)1,000 Mcg/1 Ml Vial1,000 Mcg IM Monthly 02/23/15 Pramipexole Dihydrochloride (Mirapex)0.5 Mg Tablet0.5 Mg PO HS 02/14/15 Magnesium Oxide (Magox 400)400 Mg Reksnb640 Mg PO BID 02/14/15 Lorazepam 1 Mg Tablet1-2 Mg PO 4xdaily Ref 0 02/14/15 Ipratropium/Albuterol Sulfate (Iprat-Albut 0.5-3(2.5) mg/3 mL Inhalant Soln)3 Ml Ampul.neb3 Ml IH Q6 PRN For Shortness of Breath Ref 0 02/14/15 Venlafaxine ER (Effexor XR)37.5 Mg Cap.er.24h37.5 Mg PO BID #30 CAPSULE Ref 0 11/20/14 Ondansetron (Zofran)8 Mg Tab8 Mg PO QID PRN For Nausea 11/20/14 History History of ENT Problems?: Yes HEENT History: Positive for:: Sinus Problem (chronic sinus infections; 2 sinus OR's) Denies:: Abnormal Airway Cataracts Difficult Intubation Dysphagia Hearing Problem Denture Type: None Teeth Condition: Within Normal Limits Hx of Heart Problems?: Yes Cardiovascular History: Positive for:: AICD Atrial Fibrillation Cardiac Surgery (AICD 2003, 2009) Congestive Heart Failure Edema Hypertension Irregular Heartbeat (did not noted when assessed) Pacemaker Denies:: Chest Pain Heart Murmur Thrombophlebitis Valvular Heart Disease Hx of Respiratory Problem?: Yes Respiratory History: Positive for:: COPD Dyspnea Pneumonia Denies:: Asthma Chest Surgery Cough Emphysema Hemoptysis Tuberculosis Hx Neurologic Problems?: Yes Neurological History: Positive for:: Headaches (migraines) Denies:: Alzheimer's Disease CVA Dementia Dizziness Parkinson's Disease Seizures Hx of GI Problems?: Yes Hx of Problems?: No Genitourinary History: Positive for:: Urinary Tract Infection Denies:: HX of Hemodialysis Kidney Stones HX of Peritoneal Dialysis: No Female Hx: Positive for:: Endometriosis Pelvic Inflammatory Denies:: Currently (HYSTO) Problems with Breasts? Skin History: Denies:: History Skin Disorders? Pressure Ulcers Hx Musculoskeletal Problems?: Yes Musculoskeletal History: Positive for:: Back Injury Denies:: Joint Replacement Musculoskeletal Trauma Hx of Psycho/Social Problems?: Yes Psycho Social History: Positive for:: Anxiety Hx Depression Denies:: Bipolar Disorder Suicide Attempt Hx Surgeries?: Yes (AICD x2, CARDIAC ABLATION, SINUS, HYSTO, TONSIL, ORAL, BLADDER/UTERUS ) Hx Any Other Health Problems?: Yes Other History: Positive for:: Hospitalization Denies:: Cancer Endocrine Disease Thyroid Disease History Blood Transfusions: Denies:: Blood Transfuse Reaction Blood Transfusions Hx Diabetes: No Hx Alcohol Use: NoHx Substance Use: Yes (marijuana) Smoking Status: Former Smoker Have You Smoked inLast 12 mo: Yes (vape/e-cig only every once in awhile) Stop/Bang Risk Assessment Category Category 1A: Patient has history of documented sleep apnea, and HAS NOT received any narcotic, sedative or anesthesia administration during this stay. Category 1B: Patient has history of documented sleep apnea, and HAS received any narcotic , sedative or anesthesia administration during this stay Category 2: Patient has SUSPECTED Obstructive Sleep Apnea, and HAS received any narcotic , sedative or anesthesia administration during this stay. Category 3: Patient has SUSPECTED Obstructive Sleep Apnea and HAS NOT received narcotic, sedative or anesthesia administration during this stay. Category 4: Outpatient in Procedural Areas with known sleep apnea or who screen positive for High Risk via the STOP/BANG questionnaire. Exam Exam General Appearance: Other HEENT/AIRWAY: Other Plan Impression Patient chart reviewed, patient interviewed and anesthestic plan with risks, benefits, and alternatives discussed, and informed consent obtained. NPO per Anesth. Guidelines: Yes Other anesthesia provided by another physician, please disregard this note Jimmy June MD Mar 03, 2017 07:24 Plan Impression Patient chart reviewed, patient interviewed and anesthestic plan with risks, benefits, and alternatives discussed, and informed consent obtained. NPO per Anesth. Guidelines: Yes Jimmy June MD Mar 03, 2017 07:24
[~2017-03-03 07:25] MED LIST changes: -ALBU8.5H4 IH; -CHOL10008 PO; -DOCU250C2 PO; -FENT-2 TRANSDERM; +HYDR-656 PO; -LANS30CA PO; -MIRT30TA6 PO; -MS15TCR PO; -QUET25TA PO
--- NOTE | 2017-03-03 08:20 | PCM.HPANE ---
Patient Data Surgeon Admitting Provider: Attending Provider:Mynor Cormier MD Primary Care Physician:Cristobal Berkowitz MD Other Provider:Tarun Booth Anesthesia Reason for Visit Pancreatic Mass Ht/WT & BMI Height (Feet): 5 Height (Inches): 4 Weight (Kilograms): 57.61 Body Mass Index 21.00 Allergies Coded Allergies: NSAIDS (Non-Steroidal Anti-Inflamma (Verified Allergy, Severe, 02/07/17) Quinolones (Verified Allergy, Severe, ? AVALOX, 02/07/17) ceftriaxone sodium (Verified Allergy, Severe, 02/07/17) codeine (Verified Allergy, Severe, 02/07/17) ibuprofen (Verified Allergy, Severe, 02/07/17) metoclopramide (Verified Allergy, Severe, 02/07/17) metoclopramide HCl (Verified Allergy, Severe, 02/07/17) moxifloxacin HCl (Verified Allergy, Severe, 02/07/17) naproxen (Verified Allergy, Severe, 02/07/17) prochlorperazine edisylate (Verified Allergy, Severe, 02/07/17) prochlorperazine maleate (Verified Allergy, Severe, 02/07/17) sumatriptan (Verified Allergy, Severe, 02/07/17) sumatriptan succinate (Verified Allergy, Severe, 02/07/17) latex (Verified Allergy, Intermediate, RASH,when latex is on her skin for days, 02/07/17) diphenhydramine (Verified Allergy, Unknown, 02/23/17) levofloxacin (Verified Allergy, Unknown, 02/23/17) Cephalosporins (Verified Adverse Reaction, Severe, N/V, 02/07/17) prednisone (Verified Adverse Reaction, Severe, PSYCHOSIS, 02/07/17) prochlorperazine (Verified Adverse Reaction, Severe, AGITATION, 02/07/17) Uncoded Allergies: ADHESIVE TAPES (Allergy, Unknown, 12/24/14) Adhesive tape (Adverse Reaction, Intermediate, rash, 05/26/15) NSAIDS (Adverse Reaction, Unknown, lupus anticoagulation & bleeding disorder IGA defiency, 12/26/14) Past Anesthesia History Anesthesia History: Positive for:: Anesthesia Reactions, Denies:: Abnormal Airway, Difficult Intubation, Fam Anesthesia Reaction, Fam Malignant Hypertherm, Malignant Hyperthermia Diabetes History Hx Diabetes?: No MRSA MRSA: Yes (2015/ARM) Medications Blood Thinner: Coumadin Last Dose Blood Thinner: February 21, 2017 Active Scripts Polyethylene Glycol 3350 (Miralax)17 Gm Powd.pack17 Gm PO MORNING 14 Days Prov:Ayden Brown MD 05/25/16 Reported Medications Mirtazapine (Remeron)30 Mg Jkvicm23 Mg PO HS Ref 0 03/02/17 Sennosides (Senna)8.6 Mg Tablet8.6 Mg PO PRN For Constipation 02/23/17 Albuterol HFA (Proair HFA)8.5 Gm Hfa.aer.ad2 Puffs INHALATION Q4H #1 INHALER 02/23/17 Ipratropium/Albuterol Sulfate (Iprat-Albut 0.5-3(2.5) mg/3 mL Inhalant Soln)3 Ml Ampul.neb3 Ml IH Q6 Ref 0 02/23/17 Warfarin Sodium 5 Mg Tablet5 Mg PO DAILY Ref 0 06/02/16 Furosemide 40 Mg Qumwfa83 Mg PO DAILY 06/02/16 Lisinopril 2.5 Mg Tablet2.5 Mg PO DAILY Ref 0 06/02/16 Fluticasone Propionate (Flonase Allergy Relief)50 Mcg/Actuation [place].susp1 Ml NS BID 05/26/15 Quetiapine Fumarate (Seroquel)100 Mg Qneskf539 Mg PO HS #30 TABLET Ref 0 02/23/15 Quetiapine Fumarate (Seroquel)100 Mg Aomgoc91 Mg PO QAM AND NOON 30 Days Ref 0 02/23/15 Bisacodyl (Dulcolax)5 Mg Tablet.dr5 Mg PO DAILY Ref 0 02/23/15 Cyanocobalamin (Cyanocobalamin Injection)1,000 Mcg/1 Ml Vial1,000 Mcg IM Monthly 02/23/15 Pramipexole Dihydrochloride (Mirapex)0.5 Mg Tablet0.5 Mg PO HS 02/14/15 Magnesium Oxide (Magox 400)400 Mg Misddr237 Mg PO BID 02/14/15 Lorazepam 1 Mg Tablet1-2 Mg PO 4xdaily Ref 0 02/14/15 Ipratropium/Albuterol Sulfate (Iprat-Albut 0.5-3(2.5) mg/3 mL Inhalant Soln)3 Ml Ampul.neb3 Ml IH Q6 PRN For Shortness of Breath Ref 0 02/14/15 Venlafaxine ER (Effexor XR)37.5 Mg Cap.er.24h37.5 Mg PO BID #30 CAPSULE Ref 0 11/20/14 Ondansetron (Zofran)8 Mg Tab8 Mg PO QID PRN For Nausea 11/20/14 Discontinued Reported Medications hydrOXYzine Hcl (HydrOXYzine Hcl)25 Mg Sujsym51 Mg PO TID PRN For Itching Ref 0 03/02/17 Fentanyl 75 mcg/hr Patch 1 Each Patch.td721 Patch TRANSDERM Q3D Ref 0 06/02/16 Mirtazapine 30 Mg Hblaew01 Mg PO HS Ref 0 11/12/15 Cholecalciferol (Vitamin D3) (Vitamin D3)1,000 Unit Tab.chew1,000 Unit PO DAILY 05/26/15 Morphine Sulfate ER (MS Contin)15 Mg Tablet.er15 Mg PO QID 30 Days Ref 0 02/14/15 Lansoprazole 30 Mg Capsule.dr30 Mg PO DAILYAC #30 CAPSULE Ref 0 02/14/15 Albuterol HFA 8.5 Gm Hfa.aer.ad2 Puff IH TID PRN For Shortness of Breath #1 INHALER Ref 0 11/20/14 Quetiapine Fumarate (Seroquel)100 Mg Ctgpfd899 Mg PO BID Ref 0 02/23/17 Mirtazapine (Remeron)30 Mg Dkgdbf81 Mg PO HS Ref 0 02/23/17 Bisacodyl (Dulcolax)5 Mg Tablet.dr5 Mg PO DAILY PRN For Constipation Ref 0 02/23/17 Docusate Sodium 250 Mg Nufkzkl007 Mg PO DAILY PRN For Constipation Ref 0 02/23/17 Quetiapine Fumarate (Seroquel)25 Mg Cmcjgh26 Mg PO DINNER 30 Days Ref 0 02/23/15 History History of ENT Problems?: Yes HEENT History: Positive for:: Sinus Problem (chronic sinus infections; 2 sinus OR's) Denies:: Abnormal Airway Cataracts Difficult Intubation Dysphagia Hearing Problem Denture Type: None Teeth Condition: Within Normal Limits Hx of Heart Problems?: Yes Cardiovascular History: Positive for:: AICD Atrial Fibrillation Cardiac Surgery (AICD 2003, 2009) Congestive Heart Failure Edema Hypertension Irregular Heartbeat (did not noted when assessed) Pacemaker Denies:: Chest Pain Heart Murmur Thrombophlebitis Valvular Heart Disease Hx of Respiratory Problem?: Yes Respiratory History: Positive for:: COPD Dyspnea Pneumonia Denies:: Asthma Chest Surgery Cough Emphysema Hemoptysis Tuberculosis Hx Neurologic Problems?: Yes Neurological History: Positive for:: Headaches (migraines) Denies:: Alzheimer's Disease CVA Dementia Dizziness Parkinson's Disease Seizures Hx of GI Problems?: Yes Hx of Problems?: No Genitourinary History: Positive for:: Urinary Tract Infection Denies:: HX of Hemodialysis Kidney Stones HX of Peritoneal Dialysis: No Female Hx: Positive for:: Endometriosis Pelvic Inflammatory Denies:: Currently (HYSTO) Problems with Breasts? Skin History: Denies:: History Skin Disorders? Pressure Ulcers Hx Musculoskeletal Problems?: Yes Musculoskeletal History: Positive for:: Back Injury Denies:: Joint Replacement Musculoskeletal Trauma Hx of Psycho/Social Problems?: Yes Psycho Social History: Positive for:: Anxiety Hx Depression Denies:: Bipolar Disorder Suicide Attempt Hx Surgeries?: Yes (AICD x2, CARDIAC ABLATION, SINUS, HYSTO, TONSIL, ORAL, BLADDER/UTERUS ) Hx Any Other Health Problems?: Yes Other History: Positive for:: Hospitalization Denies:: Cancer Endocrine Disease Thyroid Disease History Blood Transfusions: Denies:: Blood Transfuse Reaction Blood Transfusions Hx Diabetes: No Hx Alcohol Use: NoHx Substance Use: Yes (marijuana) Smoking Status: Former Smoker Have You Smoked inLast 12 mo: Yes (vape/e-cig only every once in awhile) Stop/Bang Treated for Sleep Apnea?: Yes Do You Have a CPAP Machine?: Yes STACEY Risk Assessment: High Risk, =/>3 Yes Risk Assessment Category Category 1A: Patient has history of documented sleep apnea, and HAS NOT received any narcotic, sedative or anesthesia administration during this stay. Category 1B: Patient has history of documented sleep apnea, and HAS received any narcotic , sedative or anesthesia administration during this stay Category 2: Patient has SUSPECTED Obstructive Sleep Apnea, and HAS received any narcotic , sedative or anesthesia administration during this stay. Category 3: Patient has SUSPECTED Obstructive Sleep Apnea and HAS NOT received narcotic, sedative or anesthesia administration during this stay. Category 4: Outpatient in Procedural Areas with known sleep apnea or who screen positive for High Risk via the STOP/BANG questionnaire. Exam Exam Vital Signs Vital Signs Date Time Temp Pulse Resp B/P Pulse Ox O2 Delivery O2 Flow Rate FiO2 03/03/17 07:52 77 14 146/91 98 Room Air General Appearance: Oriented X3 HEENT/AIRWAY: MP 2 Lungs: Normal Air Movement, Diminished Heart: Regular Rate/Rhythm Plan Impression Patient chart reviewed, patient interviewed and anesthestic plan with risks, benefits, and alternatives discussed, and informed consent obtained. NPO per Anesth. Guidelines: Yes ASA Physical Status: ASA4 Life Threatening Anesthetic Plan: MAC Bene/Risks/Altern/Consents: Yes HP Complete Prior to Induction: Yes Munir Chapin MD Mar 03, 2017 08:20
[2017-03-03] MEDS ORDERED: Lactated Ringer's 1,000 ML IV SCH (10:04)
[2017-03-03] MEDS ORDERED: Ondansetron 2 mg/mL 2 mL Inj IVPUSH PRN (10:05)
--- NOTE | 2017-03-03 10:05 | PCM.ANEP1 ---
Post Anesthesia PACU Phase 1 Assessment Vital Signs Vital Signs Date Time Temp Pulse Resp B/P Pulse Ox O2 Delivery O2 Flow Rate FiO2 03/03/17 09:48 69 16 108/66 97 Room Air 03/03/17 09:38 65 16 108/60 96 Room Air 03/03/17 09:28 76 16 122/77 97 Room Air 03/03/17 07:52 77 14 146/91 98 Room Air Anesthetic Administered: MAC Level of Alertness: Awake, talking Pain: No Nausea or Vomiting: No CV Function & Hydration Stable: Yes Airway Device: Lungs: Normal Air Movement, Diminished PACU Phase 2 Assessment Patient Instructions Provided: N/A Munir Chapin MD Mar 03, 2017 10:05
[2017-03-03] MEDS ORDERED: fentaNYL-PF 50 mCg/mL 2 mL Inj ONE (11:01)
[2017-03-03] MEDS ORDERED: LidocaineVisc 2%:Antacid 1:1 10 mL Syringe PO STA (11:17)
[2017-03-03] MEDS ORDERED: fentaNYL-PF 50 mCg/mL 2 mL Inj IVPUSH ONE (11:20)
--- NOTE | 2017-03-03 12:09 | DRSVH ---
PROCEDURE: X-RAY ABDOMEN DECUBITUS, LEFT INDICATIONS: PAIN TECHNIQUE: One view of the abdomen acquired. COMPARISON: None. FINDINGS: Surgical changes and devices: Partially visualized pacemaker and upper abdominal clips. Bowel: Prominent stool is present within the left colon. Soft tissues: No suspicious abdominal calcifications. Visualized solid organ contours appear normal in size. Bones: No suspicious bony lesions. IMPRESSION: Prominent left colonic stool suggestive of constipation. Dictated by: Gwendolyn Joseph M.D. on 03/03/2017 at 11:07 Approved by: Gwendolyn Joseph M.D. on 03/03/2017 at 11:07
--- NOTE | 2017-03-03 12:10 | DRSVH ---
PROCEDURE: X-RAY CHEST ONE VIEW, PORTABLE ([id number]) INDICATIONS: PAIN TECHNIQUE: One view of the chest was acquired. COMPARISON: [facility], CR, XR CHEST 1VW (PORTABLE), 02/24/2017, 15:39. FINDINGS: Surgical changes and devices: Pacemaker. Lungs and pleura: No pleural effusions or pneumothorax. Lungs are clear. There is unchanged elevat ion of the left hemidiaphragm. Mediastinum: Mediastinal contours appear normal. Heart size is normal. Bones and chest wall: No suspicious bony lesions. Overlying soft tissues appear unremarkable. IMPRESSION: No acute pulmonary process. Dictated by: Gwendolyn Joseph M.D. on 03/03/2017 at 11:08 Approved by: Gwendolyn Joseph M.D. on 03/03/2017 at 11:08
[2017-03-03 13:07] LABS: Creatine Kinase 65 U/L (21-215)
[2017-03-03 13:08] LABS: TROPONIN T < 0.010 ug/L (0.0-0.011)
--- NOTE | 2017-03-04 14:11 | PATH ---
SURGICAL PATHOLOGY Attending Physician:Otto Kent CASE STATUS: Signed Out PATIENT NAME: KEYANNA MYERS PID: [id number] : 1960 DATE COLLECTED:03/03/2017 16:25 SPECIMEN: Gastric, Biopsy CLINICAL HISTORY: 1. RANDOM GASTRIC BX FINAL DIAGNOSIS: 1.RANDOM GASTRIC BIOPSY: MILD CHRONIC GASTRITIS INVOLVING FUNDIC MUCOSA. Negative for evidence of Helicobacter. Negative for intestinal metaplasia. Negative for dysplasia and malignancy. ICD10 K29.70 GROSS DESCRIPTION: The specimen is received in one formalin filled container labeled with the patient's name, sublabeled "random gastric" and consists of 2 portions of tissue which aggregate to 0.6 x 0.3 x 0.2 CM. The specimen is entirely submitted in one cassette. 03/03/2017 [facility] MICRO DESCRIPTION: See diagnosis. ICD-9 CODES: CPT CODES: 1: 66820 Electronically Signed Out Tye Dewitt MD [facility] Pathology [facility] [address], [place] [address] Technical component performed at [facility], [facility] [address], [place], [address]
--- NOTE | 2017-03-04 15:58 | ENDO ---
[address] [address] ENDOSCOPY PROCEDURE PATIENT: KEYANNA MYERS : 1960 MR#: [id number] ADMIT: 03/03/2017 JOB ID: [id number] DATE: 03/04/2017 PROCEDURE: 1. Esophagogastroduodenoscopy. 2. EUS. INDICATIONS FOR PROCEDURE: A mass seen within the pancreatic body. INSTRUMENTS USED: GIF H 180 J as well as a GF UCT 180 linear echoendoscope. Please see anesthesia report for details regarding ASA classification, Mallampati score, and medications. PROCEDURE DETAILS: After informed consent was obtained, the patient was brought into the GI suite, where she was placed on oxygen via nasal cannula and monitored with continuous pulse oximeter, telemetry and blood pressure monitoring. A time-out was performed. Then she was placed in the left lateral decubitus position and medications were administered for sedation. A bite block was placed. Standard EGD scope was then inserted through the bite block and advanced without difficulty to the second portion of the duodenum. FINDINGS: 1. Normal-appearing duodenal bulb, first and second portion. 2. Normal-appearing pylorus. In the antrum and body of the stomach, there was erythema suggestive of gastritis. Multiple random biopsies were obtained. 3. Retroflexed views in the gastric body revealed a normal-appearing cardia and fundus. 4. The GE junction was regular at 37 cm. 5. Normal appearing esophagus. Next, the linear echoendoscope was then introduced through the bite block and advanced without difficulty to the second portion of the duodenum. Linear echo endoscopic imaging demonstrated the followin. The common bile duct measured approximately 4 mm. 2. The pancreatic duct in the body of the pancreas measured approximately 3.4 mm. I did not appreciate any mass lesions in the pancreas. 3. Visualized portions of the left lobe of the liver were unremarkable. 4. The left adrenal gland was identified and appeared unremarkable. 5. Flow was noted in the portal vein, splenic vein and splenic artery. IMPRESSION: 1. No pancreatic mass identified on today's EUS examination. 2. Gastritis. RECOMMENDATIONS: 1. Will send the patient down to [place] for repeat EUS for a second opinion. Will await biopsies taken in the gastric body and antrum. COMPLICATIONS: None. ESTIMATED BLOOD LOSS: Less than 5 mL.
== END 2017-03-03 23:59 | disposition home or self-care (01) ==
LOC: END 07:25
PROVIDERS: ATTEND Internal Medicine Gastroenterology
DX: K29.50 Unspecified chronic gastritis without bleeding (principal); K86.9 Disease of pancreas, unspecified; K63.9 Disease of intestine, unspecified; R63.4 Abnormal weight loss; I50.9 Heart failure, unspecified; I47.2 Ventricular tachycardia; I48.0 Paroxysmal atrial fibrillation; E78.5 Hyperlipidemia, unspecified; I42.9 Cardiomyopathy, unspecified; J44.9 Chronic obstructive pulmonary disease, unspecified; G89.4 Chronic pain syndrome; D68.62 Lupus anticoagulant syndrome; F41.8 Other specified anxiety disorders; F17.210 Nicotine dependence, cigarettes, uncomplicated; Z79.891 Long term (current) use of opiate analgesic; Z80.0 Family history of malignant neoplasm of digestive organs; Z79.01 Long term (current) use of anticoagulants; Z68.22 Body mass index [BMI] 22.0-22.9, adult; Z86.14 Personal history of Methicillin resistant Staphylococcus aureus infection; Z95.0 Presence of cardiac pacemaker
CPT/HCPCS: 36415; 43238; 71010; 74000; 80053; 82550; 82553; 83690; 84484; 93005; J2250; J3010; J7120

== ENCOUNTER 2017-04-15 15:52 | Inpatient (IN) | payer MEDICARE ==
[~2017-04-15] VITALS: Ht 160 cm; Wt 61.3 kg
[~2017-04-15 15:52] MED LIST changes: -HYDR-656 PO; -Lactated Ringer's 1,000 ML IV ONE
[2017-04-15 16:16] VITALS: BP 112/87; PULSE 95; RESP 16; O2SAT 100
[2017-04-15 17:20] LABS: BASOPHILS % (AUTO) 0.9 % (0-3); EOSINOPHILS % (AUTO) 0 % (0-5); MONOCYTES % (AUTO) 5.7 % (4-12); Mean Corpuscular Hemoglobin 27.5 pg (27.0-35.0); Mean Corpuscular Volume 81.7 fL (81-100); NEUTROPHILS % (AUTO) 51.1 % (40-74); Platelet Count 165 bil/L (150-400)
[2017-04-15 17:38] LABS: TROPONIN T < 0.010 ug/L (0.0-0.011)
[2017-04-15 17:46] LABS: Magnesium 2.2 mg/dL (1.6-2.6)
[2017-04-15 18:26] VITALS: BP 158/69; PULSE 82; RESP 20; O2SAT 96
--- NOTE | 2017-04-15 18:34 | DRSVH ---
PROCEDURE: X-RAY CHEST, TWO VIEWS ([id number]) INDICATIONS: chest pain TECHNIQUE: 2 views of the chest were acquired. COMPARISON: [facility], CR, XR CHEST 1VW (PORTABLE), 03/03/2017, 11:35. FINDINGS: Surgical changes and devices: Pacemaker and right upper quadrant clips. Lungs and pleura: No pleural effusions or pneumothorax. Lungs are clear. Mediastinum: Mediastinal contours are normal. Heart size is normal. Bones and chest wall: No suspicious bony abnormalities. Soft tissues appear unremarkable. IMPRESSION: No acute pulmonary process. Dictated by: Gwendolyn Joseph M.D. on 04/15/2017 at 18:31 Approved by: Gwendolyn Joseph M.D. on 04/15/2017 at 18:32
[2017-04-15 19:20] VITALS: BP 168/95; PULSE 87; RESP 18; O2SAT 97
[2017-04-15 20:25] VITALS: BP 167/99; PULSE 88; RESP 24; O2SAT 98
[2017-04-15 21:44] VITALS: BP 113/62; PULSE 82; RESP 15; O2SAT 97
--- NOTE | 2017-04-15 21:44 | ED.REPORT ---
HPI-General Illness Date of Service Apr 15, 2017 ED Provider: Glen Lyons MD The patient is a 56 year old female w/ a hx of chronic systolic and diastolic heart failure with AICD pacemaker, COPD, and NV who presents to the ED due to severe, sharp, left sided chest pain radiating upwards into her left neck and head onset 0700 this morning. She has noticed her blood pressure fluctuating up and down. Associated symptoms include nausea, epigastric pain, mild shortness of breath, numbness and tingling in right arm associated with pain. No notable alleviating or exacerbating factors. She states that she has a number of other chronic complaints, however these are not changed at this time. No recent fever , unilateral weakness, vision changes, or other new complaints today at this time. Nursing Notes Stated Complaint: CHEST PAIN,ARM PAIN,NECK PAIN Chief Complaint: Chest Pain Nursing Notes Reviewed: Yes Allergies: Coded Allergies: NSAIDS (Non-Steroidal Anti-Inflamma (Verified Allergy, Severe, 02/07/17) Quinolones (Verified Allergy, Severe, ? AVALOX, 02/07/17) ceftriaxone sodium (Verified Allergy, Severe, 02/07/17) codeine (Verified Allergy, Severe, 02/07/17) ibuprofen (Verified Allergy, Severe, 02/07/17) metoclopramide (Verified Allergy, Severe, 02/07/17) metoclopramide HCl (Verified Allergy, Severe, 02/07/17) moxifloxacin HCl (Verified Allergy, Severe, 02/07/17) naproxen (Verified Allergy, Severe, 02/07/17) prochlorperazine edisylate (Verified Allergy, Severe, 02/07/17) prochlorperazine maleate (Verified Allergy, Severe, 02/07/17) sumatriptan (Verified Allergy, Severe, 02/07/17) sumatriptan succinate (Verified Allergy, Severe, 02/07/17) latex (Verified Allergy, Intermediate, RASH,when latex is on her skin for days, 02/07/17) diphenhydramine (Verified Allergy, Unknown, 02/23/17) levofloxacin (Verified Allergy, Unknown, 02/23/17) Cephalosporins (Verified Adverse Reaction, Severe, N/V, 02/07/17) prednisone (Verified Adverse Reaction, Severe, PSYCHOSIS, 02/07/17) prochlorperazine (Verified Adverse Reaction, Severe, AGITATION, 02/07/17) Uncoded Allergies: ADHESIVE TAPES (Allergy, Unknown, 12/24/14) Adhesive tape (Adverse Reaction, Intermediate, rash, 05/26/15) NSAIDS (Adverse Reaction, Unknown, lupus anticoagulation & bleeding disorder IGA defiency, 12/26/14) Scheduled Bisacodyl (Dulcolax) 5 Mg Tablet.dr 5 MG PO DAILY Cyanocobalamin (Cyanocobalamin Injection) 1,000 Mcg/1 Ml Vial 1,000 MCG IM Monthly Fentanyl 75 mcg/hr Patch (Fentanyl 75 mcg/hr Patch) 1 Each Patch.td72 1 PATCH TRANSDERM Q3D Fluticasone Propionate (Flonase Allergy Relief) 50 Mcg/Actuation [place].susp 1 SPRAY NS BID Furosemide (Furosemide) 40 Mg Tablet 40 MG PO DAILY Lisinopril (Lisinopril) 2.5 Mg Tablet 1.25 MG PO BID Lorazepam (Lorazepam) 1 Mg Tablet 1-2 MG PO 4xdaily Magnesium Oxide (Magox 400) 400 Mg Tablet 200 MG PO BID Mirtazapine (Remeron) 30 Mg Tablet 45 MG PO HS Ondansetron (Zofran) 8 Mg Tab 8 MG PO QID Polyethylene Glycol 3350 (Miralax) 17 Gm Powd.pack 17 GM PO MORNING Quetiapine Fumarate (Seroquel) 100 Mg Tablet 50 MG PO 0800, 1400 Quetiapine Fumarate (Seroquel) 100 Mg Tablet 200 MG PO HS Quetiapine Fumarate (Quetiapine Fumarate) 25 Mg Tablet 25 MG PO DAILYWD Sennosides (Senna) 8.6 Mg Tablet 8.6 MG PO DAILY Venlafaxine ER (Effexor XR) 37.5 Mg Cap.er.24h 37.5 MG PO BID Warfarin Sodium (Warfarin Sodium) 5 Mg Tablet 5 MG PO DAILY EXCEPT TUESDAY Scheduled PRN Albuterol HFA (Proair HFA) 8.5 Gm Hfa.aer.ad 2 PUFFS INHALATION Q4H PRN PRN For Shortness of Breath Ipratropium/Albuterol Sulfate (Iprat-Albut 0.5-3(2.5) mg/3 mL Inhalant Soln) 3 Ml Ampul.neb 3 ML IH Q6 PRN PRN For Shortness of Breath General Time Seen by MD: 18:31 Chief Complaint Chest pain Hx Obtained From: Patient Arrived By: Walk-in Sudden in Onset?: Yes Onset Occurred: 13 - 16 hours ago Symptom Duration: Since onset Quality: Sharp Radiation: : Jaw Severity: Current: Severe Pertinent Negative: Exacerbated by nothing, Relieved by nothing Recent Healthcare: No recent doctor visit, No recent hospitalization Similar Sx Previous: No Past Medical History Past Medical History Notes: Pt hospitalized in May of 2015 for CP rule-out. Past Medical History History of chronic systolic and diastolic heart failure with AICD pacemaker History of a benign appearing pancreatic neoplasm (GI notes 11/2014 indicate stable over several years in size, although a recommendation for fine needle aspiration was made at that time) Lupus anticoagulation History of IgA deficiency Rectocele prolapse Hemorrhoids - with admission January 19 through January 25 for bleeding, and hemorrhoidectomy following a hemorrhoidectomy and pain H/o diverticulitis and C. Diff H/o pancreatitis H/o pericarditis History of prior C. difficile History of malabsorption History of chronic pain and narcotic use Colon mass Reports: COPD, Congestive heart failure, Hypertension Past Surgical History AICD pacemaker placed Bladder suspension Hemorrhoidectomy 12/27/14, status post rectal exam and flexible sigmoidoscopy under general anesthesia on 01/20/2015 for bleeding Sinus surgery Foot surgery Reports: Cholecystectomy, Hysterectomy, Tonsillectomy Family History father colorectal cancer Smoking History Former Smoker Social History Alcohol Use: Denies alcohol use Drug Use: THC Ambulatory Status Independent Review of Systems Full Review of Systems Respiratory: Reports: Shortness of breath Cardiovascular: Reports: Chest pain GI: Reports: Abdominal pain, Nausea Musculoskeletal: Reports: Extremity pain Neurologic: Reports: Numbness, Denies: Headache Complete sys rev & neg: except as marked. Physical Exam Nursing note and vitals reviewed. Constitutional: Well-developed, well-nourished. Not diaphoretic. Head: Normocephalic and atraumatic. Mouth/Throat: Oropharynx is clear and moist. No oropharyngeal exudate. Eyes: EOM are normal. Pupils are equal, round, and reactive to light. Neck: Supple, no tracheal deviation. Cardiovascular: Normal rate, regular rhythm. Equal and intact distal pulses throughout. Pulmonary/Chest: Effort normal and breath sounds normal. No respiratory distress. Abdominal: Mild epigastric tenderness to palpation , no rebound or guarding. Bowel sounds present. Musculoskeletal: Range of motion grossly intact, moving all extremities. Trace edema to bilateral lower extremities. Neurological: AOx3. Grossly nonfocal exam. Strength and sensation intact and equal to bilateral upper and lower extremities. Skin: Warm and dry, no rashes or pallor appreciated. Psychiatric: Appropriate mood and affect. Behavior appears normal. Vital Signs Vital Signs Date Time Temp Pulse Resp B/P Pulse Ox O2 Delivery O2 Flow Rate FiO2 04/15/17 23:25 37.0 84 16 121/64 99 Room Air 04/15/17 21:44 82 15 113/62 97 Room Air 04/15/17 20:25 88 24 167/99 98 Room Air 04/15/17 19:20 87 18 168/95 97 Room Air 04/15/17 18:26 82 20 158/69 96 Room Air 04/15/17 16:16 37.0 95 16 112/87 100 Room Air Initial VS: Reviewed Interpretation & Diagnostics Lab Results Interpretation Result Diagram: 04/15/17 1702 04/15/17 1702 Test 04/15/17 17:02 White Blood Count 4.4th/mm3 (3.8-10.1) Red Blood Count 4.43mil/mm3 (3.90-5.20) Hemoglobin 12.2g/dL (12.0-15.6) Hematocrit 36.2% (35.0-46.0) Mean Corpuscular Volume 81.7fL (81-100) Mean Corpuscular Hemoglobin 27.5pg (27.0-35.0) Mean Corpuscular Hemoglobin Concent 33.7% (32.0-37.0) Red Cell Distribution Width 14.4% (12.3-15.4) Platelet Count 165bil/L (150-400) Neutrophils (%) (Auto) 51.1% (40-74) Lymphocytes (%) (Auto) 42.3% (14-46) Monocytes (%) (Auto) 5.7% (4-12) Eosinophils (%) (Auto) 0% (0-5) Basophils (%) (Auto) 0.9% (0-3) Activated Partial Thromboplast Time 39.9sec (22.8-33.0) Sodium Level 136mEq/L (134-144) Potassium Level 4.6mEq/L (3.5-5.2) Chloride Level 98mEq/L (97-108) Carbon Dioxide Level 26mmol/L (18-29) Blood Urea Nitrogen 14mg/dL (6-24) Creatinine 1.11mg/dL (0.57-1.00) Estimat Glomerular Filtration Rate 73mL/min (>59) Glucose Level 81mg/dL (60-99) Calcium Level 9.5mg/dL (8.5-10.1) Magnesium Level 2.2mg/dL (1.6-2.6) Total Bilirubin 0.2mg/dL (0.0-1.2) Aspartate Amino Transf (AST/SGOT) 16U/L (0-50) Alanine Aminotransferase (ALT/SGPT) 11U/L (0-32) Alkaline Phosphatase 93U/L (25-150) Troponin T < 0.010ug/L (0.0-0.011) Total Protein 8.0g/dL (6.4-8.4) Albumin 4.1g/dL (3.4-5.0) Lipase 39U/L (13-60) Hold Rosario Top Tube Received (Received) ECG Interpretation ECG Interpretation: multiple PVCs Time: 17:10 Interpreted by: ED physician Normal ECG Interpretation: Normal sinus rhythm (RATE 87), No acute ischemic changes X-Ray Chest Interpretation Chest Xray Interpretation: IMPRESSION: No acute pulmonary process. Dictated by: Gwendolyn Joseph M.D. on 04/15/2017 at 18:31 Approved by: Gwendolyn Joseph M.D. on 04/15/2017 at 18:32 View: Portable Interpretation / Wet Read by: Interpret - Radiologist Re-Eval/Medical Decision Med Decision/Clinical Course 56-year-old female with complex past medical history including previous NV, ischemic cardiomyopathy with an ejection fraction of 40%, and reported V. tach presenting to the ED for evaluation of left-sided chest pain radiating up towards her jaw. No evidence of pneumothorax on exam or chest x-ray. No widened mediastinum, chest pain not radiating through to the back, blood pressures equal in bilateral upper extremities; doubt aortic dissection. Chronic abdominal pain, no acute change from previous. Mild dyspnea, however no pleuritic symptoms. Low risk by [place]. EKG with no acute ischemic changes, however there are multiple PVCs, and this happened again multiple times on telemetry. Discussed with the bottle line worker, who recommended starting heparin and nitroglycerin drips, admission for telemetry, further evaluation the morning. Discussed this plan with the patient, who is agreeable with the plan as stated, no further questions. Consultation : Referral / Consult Name: Kennedy Acosta MD Consulted With: Cardiology Call Returned at: 23:15 Sprinkling Truck Driver: Agrees with eval, Agrees with plan Note: Case discussed w/ cardiology, Dr. Acosta. Plan for Nitro drip and Heparin. Counseled Regarding: Diagnosis, Lab results, Need for admission Discharge & Departure Primary Impression: Ventricular dysrhythmia Additional Impression: Unstable angina Disposition: ADMITTED TO HOSPITAL Discharge Condition All VS Reviewed: Yes Condition: Stable Referrals: Cristobal Berkowitz MD (PCP) Crit Care Except Billable Proc Time Spent: 30-74 minutes (35 minutes) Services Performed: Patient management by me, Time spent at bedside, Reviewing test results, Reviewing imaging, Discussing patient care, Documentation in record Critical Care Notes: Please see HERACLIO. Meli Attestation Portion of this note were transcribed by An Julian. I, Dr. Lyons, personally performed the history, physical exam, and medical decision-making: I reviewed and confirmed the accuracy for the information in the transcribed note. Signed by: meli Blanco, 04/15/17 [id number] copies to: Cristobal Berkowitz MD, William B MD Apr 15, 2017 21:44 An Julian Apr 15, 2017 21:51
[2017-04-15] MEDS ORDERED: QUET25TA73 PO (22:53)
[2017-04-15] MEDS ORDERED: FENT-2 TRANSDERM (22:53)
[2017-04-15 23:25] VITALS: BP 121/64; PULSE 84; RESP 16; O2SAT 99
[2017-04-15] MEDS ORDERED: Heparin 5,000 Unit/mL Inj IVPUSH ONE (23:30)
[2017-04-15] MEDS ORDERED: Nitroglycerin 50 mg/250 mL D5W 50,000 MCG in IV Premix 1 EACH IV ONE (23:30)
[2017-04-15] MEDS ORDERED: Heparin 25K Unit/500mL 0.45 NS 25,000 UNIT in IV Premix 1 EACH IV ONE (23:30)
[2017-04-16] VITALS (10 sets, daily range): BP systolic 99–156; BP diastolic 51–98; PULSE 60–98; RESP 16–18; O2SAT 94–99
[2017-04-16] MEDS ORDERED: Atropine 1 mg/10 mL (Code) Syringe IVPUSH PRN (00:25)
[2017-04-16] MEDS ORDERED: Nitroglycerin 50 mg/250 mL D5W 50,000 MCG in IV Premix 1 EACH IV SCH (00:25)
[2017-04-16] MEDS ORDERED: Heparin 25K Unit/500mL 0.45 NS 25,000 UNIT in IV Premix 1 EACH IV SCH (00:25)
[2017-04-16] MEDS ORDERED: Alum-Mag Hydrox-Simeth 30 mL Suspension PO PRN (00:25)
[2017-04-16] MEDS ORDERED: Ondansetron 2 mg/mL 2 mL Inj IVPUSH PRN (00:25)
[2017-04-16] MEDS: Sodium Chloride LOK Flush 10 mL Syringe IVFLUSH SCH ×4 (00:30→23:25)
[2017-04-16] MEDS ORDERED: Albuterol-Ipratropium 3 mL Inhalation Solution NEB PRN (00:30)
--- NOTE | 2017-04-16 00:40 | PCM.HPMED ---
Subjective Date of Service Apr 16, 2017 Primary Provider: Admitting Physician: Viviane Crowder MD Primary Care Physician: Cristobal Berkowitz MD Attending Physician: Viviane Crowder MD Admit Status: From the Emergency Department, Full Admit, Critical Care Chief Complaint: chest pain History of Present Illness: This is a 56-year-old female who has a history of chronic systolic and diastolic heart failure with AICD pacemaker. Also has a history of COPD. Has a history of MA in the past. She presents with left-sided chest pain radiating into her left neck also notes headache pain started this morning. Does have some nausea and mild shortness of breath. She is a very poor historian he also has a history of polypharmacy and narcotic habituation. 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 She has also been followed by Dr. Rodríguez for hematology oncology issues she has a history of cardiomyopathy lupus anticoagulant. She also has a history of pancreatic lesion was believed to be benign and evaluated at [facility] endoscopic ultrasound and was recommended to be observed. Her evaluation in the emergency room today includes troponin which is less than 0.010. EKG is sinus at a rate of 87 with frequent PVCs. There is no evidence of any acute ischemic changes. Chest x-ray reveals no acute pulmonary process. EF physician did contact Dr. Acosta of cardiology who recommended IV nitroglycerin and IV heparin drips and will consult in the a.m. Review of Systems: Denies cough denies any fevers or chills. Denies alteration in bowel movements. All other review of systems are reviewed and negative except for as in history of present illness. She does admit to slight increase in lower extremity edema bilaterally over the past week or so. Allergies Coded Allergies: NSAIDS (Non-Steroidal Anti-Inflamma (Verified Allergy, Severe, 02/07/17) Quinolones (Verified Allergy, Severe, ? AVALOX, 02/07/17) ceftriaxone sodium (Verified Allergy, Severe, 02/07/17) codeine (Verified Allergy, Severe, 02/07/17) ibuprofen (Verified Allergy, Severe, 02/07/17) metoclopramide (Verified Allergy, Severe, 02/07/17) metoclopramide HCl (Verified Allergy, Severe, 02/07/17) moxifloxacin HCl (Verified Allergy, Severe, 02/07/17) naproxen (Verified Allergy, Severe, 02/07/17) prochlorperazine edisylate (Verified Allergy, Severe, 02/07/17) prochlorperazine maleate (Verified Allergy, Severe, 02/07/17) sumatriptan (Verified Allergy, Severe, 02/07/17) sumatriptan succinate (Verified Allergy, Severe, 02/07/17) latex (Verified Allergy, Intermediate, RASH,when latex is on her skin for days, 02/07/17) diphenhydramine (Verified Allergy, Unknown, 02/23/17) levofloxacin (Verified Allergy, Unknown, 02/23/17) Cephalosporins (Verified Adverse Reaction, Severe, N/V, 02/07/17) prednisone (Verified Adverse Reaction, Severe, PSYCHOSIS, 02/07/17) prochlorperazine (Verified Adverse Reaction, Severe, AGITATION, 02/07/17) Uncoded Allergies: ADHESIVE TAPES (Allergy, Unknown, 12/24/14) Adhesive tape (Adverse Reaction, Intermediate, rash, 05/26/15) NSAIDS (Adverse Reaction, Unknown, lupus anticoagulation & bleeding disorder IGA defiency, 12/26/14) Home Medications Scheduled Bisacodyl (Dulcolax) 5 Mg Tablet.dr 5 MG PO DAILY Cyanocobalamin (Cyanocobalamin Injection) 1,000 Mcg/1 Ml Vial 1,000 MCG IM Monthly Fentanyl 75 mcg/hr Patch (Fentanyl 75 mcg/hr Patch) 1 Each Patch.td72 1 PATCH TRANSDERM Q3D Fluticasone Propionate (Flonase Allergy Relief) 50 Mcg/Actuation [place].susp 1 SPRAY NS BID Furosemide (Furosemide) 40 Mg Tablet 40 MG PO DAILY Lisinopril (Lisinopril) 2.5 Mg Tablet 1.25 MG PO BID Lorazepam (Lorazepam) 1 Mg Tablet 1-2 MG PO 4xdaily Magnesium Oxide (Magox 400) 400 Mg Tablet 200 MG PO BID Mirtazapine (Remeron) 30 Mg Tablet 45 MG PO HS Ondansetron (Zofran) 8 Mg Tab 8 MG PO QID Polyethylene Glycol 3350 (Miralax) 17 Gm Powd.pack 17 GM PO MORNING Quetiapine Fumarate (Seroquel) 100 Mg Tablet 50 MG PO 0800, 1400 Quetiapine Fumarate (Seroquel) 100 Mg Tablet 200 MG PO HS Quetiapine Fumarate (Quetiapine Fumarate) 25 Mg Tablet 25 MG PO DAILYWD Sennosides (Senna) 8.6 Mg Tablet 8.6 MG PO DAILY Venlafaxine ER (Effexor XR) 37.5 Mg Cap.er.24h 37.5 MG PO BID Warfarin Sodium (Warfarin Sodium) 5 Mg Tablet 5 MG PO DAILY EXCEPT TUESDAY Scheduled PRN Albuterol HFA (Proair HFA) 8.5 Gm Hfa.aer.ad 2 PUFFS INHALATION Q4H PRN PRN For Shortness of Breath Ipratropium/Albuterol Sulfate (Iprat-Albut 0.5-3(2.5) mg/3 mL Inhalant Soln) 3 Ml Ampul.neb 3 ML IH Q6 PRN PRN For Shortness of Breath PMH Past Medical History Past Medical History Notes: Pt hospitalized in May of 2015 for CP rule-out. Past Medical History History of chronic systolic and diastolic heart failure with AICD pacemaker History of a benign appearing pancreatic neoplasm (GI notes 11/2014 indicate stable over several years in size, although a recommendation for fine needle aspiration was made at that time) Lupus anticoagulation History of IgA deficiency Rectocele prolapse Hemorrhoids - with admission January 19 through January 25 for bleeding, and hemorrhoidectomy following a hemorrhoidectomy and pain H/o diverticulitis and C. Diff H/o pancreatitis H/o pericarditis History of prior C. difficile History of malabsorption History of chronic pain and narcotic use Colon mass Reports: COPD, Congestive heart failure, Hypertension Past Surgical History AICD pacemaker placed Bladder suspension Hemorrhoidectomy 12/27/14, status post rectal exam and flexible sigmoidoscopy under general anesthesia on 01/20/2015 for bleeding Sinus surgery Foot surgery Reports: Cholecystectomy, Hysterectomy, Tonsillectomy Family History Patient denies any pertinent family medical history regarding cardiac disease Social History Hx Alcohol Use: No Hx Substance Use: Yes (marijuana) Hx Tobacco Use: No (quit a year ago) Smoking Status: Former Smoker Living Arrangement: with Family Exam Vital Signs Vital Sign - Last Date Time Temp Pulse Resp B/P Pulse Ox O2 Delivery O2 Flow Rate FiO2 04/15/17 23:25 37.0 84 16 121/64 99 Room Air Exam Constitutional: Middle-aged female who appears in moderate pain distress Head: Normocephalic H [place] Eyes: PERRLA DC EOMI Mouth: No lesions Neck: The first episode without bruits no adenopathy Chest: Clear to auscultation Cor: Regular rate and rhythm S1-S2 Abdomen: Soft nontender bowel sounds present; trace bilateral pedal edema skin: No rashes Psych: Slightly anxious Neuro: Alert and oriented 3, motor strength is intact bilaterally Lab and Diagnostics Result Diagram: 04/15/17 1702 04/15/17 1702 X-Rays, CTs and MRIs Patient Name: KEYANNA MYERS MR#: [id number] Location: SED Ordering Phys: DOC, ED Date of Service: 04/15/17 1622 PROCEDURE: X-RAY CHEST, TWO VIEWS ([id number]) INDICATIONS: chest pain TECHNIQUE: 2 views of the chest were acquired. COMPARISON: [facility], CR, XR CHEST 1VW (PORTABLE), 03/03/2017, 11: 35. FINDINGS: Surgical changes and devices: Pacemaker and right upper quadrant clips. Lungs and pleura: No pleural effusions or pneumothorax. Lungs are clear. Mediastinum: Mediastinal contours are normal. Heart size is normal. Bones and chest wall: No suspicious bony abnormalities. Soft tissues appear unremarkable. IMPRESSION: No acute pulmonary process. Dictated by: Gwendolyn Joseph M.D. on 04/15/2017 at 18:31 Approved by: Gwendolyn Joseph M.D. on 04/15/2017 at 18:32 Cardiac Echo Impressions Echocardiogram from April 2016 reveals LV is normal size LV systolic function is mildly reduced LV ejection fraction is estimated to be 45%. There is mild global hypokinesis of the left ventricle. Right ventricle appears grossly normal in size with probable normal systolic function. Pacemaker lead in the right ventricle. Both atria are normal in size. There is no significant valvular disease. Assessment & Plan #Chest pain, acute, present on admission -Possible unstable angina -Cardiology is to see in a.m. and recommends IV heparin and IV nitroglycerin drip -Check serial troponins -Echocardiogram in a.m. -Nuclear pharmacological stress test ordered for a.m. #History of COPD, stable, present on admission -Continue with home medication regimen #History of mood disorder, present on admission -Continue with current medication regimen #History of benign-appearing pancreatic neoplasm, present on admission -Followed by Damaris Munoz further directions per them #DVT prophylaxis -Patient is on IV heparin drip #CODE STATUS -Patient is full code Pain Evaluation: Adequate Pain Control Resuscitation Status: CPR: Attempt Resuscitation Time spent 60 minutes Viviane Crowder MD Apr 16, 2017 00:40
[2017-04-16] MEDS ORDERED: Albuterol 2.5 mg/3 mL Inhalation Solution NEB PRN (01:16)
--- NOTE | 2017-04-16 01:30 | NUR ---
Admission to [facility] RM 2030 Pt arrived to room at approximately 0130 with a nitro drip running at 5mcg/min. Pt continues to have chest pain 8/10 and has 10/10 headache pain. Pt's VSS and pt SpO2 >92% on RA at this time. Pt did state that at baseline she uses 2.5L NC O2 when sleeping so this has been put in place for the pt's use. Pt has not made urine since admission. Pt has been NPO since midnight in preparation for the AM stress test. Pt is to have cardiac heparin drip to start at 800Units/HR and NS at 80ml/hr. Pt is AOx3, NAVA.
[2017-04-16] MEDS ORDERED: Ondansetron 8 mg ODT Tablet PO PRN (01:55)
[2017-04-16 02:13] LABS: Creatine Kinase 74 U/L (21-215)
[2017-04-16] MEDS: 0.9% Sodium Chloride 1,000 ML IV SCH ×2 (03:30→12:52)
[2017-04-16] MEDS ORDERED: Nitroglycerin 2% 1 Gm Ointment TOPICAL ONE (05:10)
--- NOTE | 2017-04-16 08:00 | NUR ---
Nitro Drip to Nitro Paste Pt's nitro drip was DC'd and nitropaste put in it's place. Pt continues to have chest pain relief from the nitropaste and states that pain is less than initial 8/10 and has come down do a 6-7/10 and that is where the pt states that she can tolerate the pain.
[2017-04-16 10:07] LABS: Creatine Kinase 61 U/L (21-215)
[2017-04-16 10:22] LABS: Mean Corpuscular Volume 83.5 fL (81-100)
[2017-04-16] MEDS: Venlafaxine XR 37.5 mg ER24 Capsule PO SCH ×2 (10:46→21:19)
[2017-04-16] MEDS: LORazepam 1 mg Tablet PO PRN ×2 (10:46→17:37)
[2017-04-16] MEDS: Fluticasone 0.05% 15 Spray/2 Gm 16 Gm Nasal Spray NASAL SCH ×2 (10:46→21:15)
[2017-04-16] MEDS: Mupirocin 2% 22 Gm Ointment TOPICAL SCH ×2 (13:01→21:16)
--- NOTE | 2017-04-16 14:42 | PCM.PNMED ---
Subjective Date of Service Apr 16, 2017 Subjective Overnight the patient says her chest pain was better with the nitroglycerin. Ms. Myers major complaint today is a headache, as her chest pain is manageable now that she is in the hospital. She denies any dizziness, shortness of breath, nausea, vomiting, fevers or chills. Exam Vital Signs Vital Sign - Last Date Time Temp Pulse Resp B/P Pulse Ox O2 Delivery O2 Flow Rate FiO2 04/16/17 10:36 37.1 86 16 122/79 98 Nasal Cannula 1.00 Exam General: Age-appropriate female laying in bed in NAD HEENT: NCAT. PERRLA, EOMI. Membranes pink and moist. Neck: Supple, nontender. No JVD, thyromegaly. CV: RRR, no murmurs/rubs/gallops. Chest pain not reproducible on palpation. Pulm: Coarse breath sounds bilaterally but no wheezing/rales/rhonchi. Productive cough. Abd: Soft, nontender nondistended. Bowel sounds present. Extremities: Trace edema around the ankles bilaterally, no cyanosis/clubbing. Neuro: A&Ox3. CN 2-12 intact, muscle strength normal in all extremities. No focal deficits. Psych: Normal mood and affect. IVs and Medications Medications Reviewed: Medications were reviewed in detail Lab and Diagnostics Result Diagram: 04/16/1790104/16/17901 X-Rays, CTs and MRIs Patient Name: KEYANNA MYERS MR#: [id number] Location: [facility] – [place] Ordering Phys: DOC, ED Date of Service: 04/15/17 1622 PROCEDURE: X-RAY CHEST, TWO VIEWS ([id number]) IMPRESSION: No acute pulmonary process. Dictated by: Gwendolyn Joseph M.D. on 04/15/2017 at 18:31 Approved by: Gwendolyn Joseph M.D. on 04/15/2017 at 18:32 Cardiac Echo Impressions Echocardiogram from April 2016 reveals LV is normal size LV systolic function is mildly reduced LV ejection fraction is estimated to be 45%. There is mild global hypokinesis of the left ventricle. Right ventricle appears grossly normal in size with probable normal systolic function. Pacemaker lead in the right ventricle. Both atria are normal in size. There is no significant valvular disease. Assessment & Plan Ms. Myers is a 56-year-old female with history of chronic systolic and diastolic heart failure with AICD pacemaker, prior CO, and COPD that presented with left-sided chest pain radiating into her left neck, accompanied by nausea and shortness of breath. 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 Rodríguez. Chest pain, acute, present on admission. Improving. - Possible unstable angina (EKG showed NSR at 87 with frequent PVC's, no ST changes, negative troponin) - IV Heparin and Nitroglycerin started per Dr. Acosta of Cardiology - Troponin negative x2, 1 more pending - CXR as above - Echocardiogram ordered - Nuc med stress test for 04/17 NPO after midnight No caffeine starting now No nitroglycerin paste/drip 3 hours prior to test COPD, stable, present on admission. Ongoing. - Patient has productive cough but no consolidations on CXR - Will start patient on Azithromycin 500mg daily for anti-inflammatory properties in the lung - Continue with home inhalers as needed History of mood disorder, present on admission. Stable. - Continue home Venlafaxine History of benign-appearing pancreatic neoplasm, present on admission - Followed by Damaris Munoz Acetaminophen for mild pain, headache, and fever when necessary. Bowel regimen Senna and MiraLAX scheduled as necessary. Zofran when necessary for nausea and vomiting. SubQ heparin for now. SCDs in place. Disposition: Patient will likely be admitted for 1-2 more days depending on the results of her cardiology work up and continued medical stability. Resuscitation Status: CPR: Attempt Resuscitation Attending Statement The patient was seen and examined together with Dr. Lopes on 04/16/17 and I agree with the history, exam and plan as outlined in the note above. Yoni Lopes DO Apr 16, 2017 14:42 Richelle Garcia DO Apr 21, 2017 21:48
[2017-04-16] MEDS: Heparin 5,000 Unit/mL Inj IVPUSH PRN (16:01)
[2017-04-16] MEDS: Senna-Docusate 8.6-50 mg Tablet PO PRN (17:37)
--- NOTE | 2017-04-16 19:08 | NUR ---
MJ explained and signed. Copy of BARKER given to pt.
--- NOTE | 2017-04-16 19:38 | NUR ---
Multidisciplinary Communication 0848 - Spoke to Afshan from Nuclear Medicine and gave her a report. She was giving report to Dr. Mccabe who said that she would come up and assess her. In the meantime, she wanted her nitro paste to be removed which it was. 904 - Spoke to Dr. Mccabe who after seeing the patient said she would be unable to complete the treadmill stress test as she was having trouble walking. She said to keep the Nitro paste off for now and she would get back to this nurse about the plan of care regarding her Nitro. 940 - Spoke to Afshan again who said that a two day non-treadmill stress test would be ordered starting tomorrow at 0900. NPO at midnight and no caffeine. 944 - Updated Dr. Lopes and discussed her care with Dr. Garcia and the rest of the multidisciplinary care team during morning rounds. 1011 - Spoke to Dr. Mccabe who said it would be alright to hold her nitro paste for now. 130 - Called Jeaneth (sister & DPOA)and gave her an update on her care with the patient's permission. She said the patient's gyroscopic instrument mechanic would be dropping off her legal paperwork. She also said she possibly remembered her having a reaction during a prior stress test, but that she couldn't remember for sure. 144 - Called Nuclear medicine and left a message about the possibility of her having a reaction to the stress test medication. 173 - Notified security per her request that she still had her car parked down in the ED parking lot. 1752 - Spoke to Dr. Lopes about her care and notified him that she had requested more Ativan. He said he would consult with his Attending Physician, but that he didn't want to increase her dose at this time. He notified her of that. 1848 - Paged Dr. Lopes as she was complaining of right hand numbness/weakness that started yesterday, gone away, and come back again this evening. He said to get a STAT EKG and he would notify the night resident. Called Nadya from RT who said someone would come to get her EKG. 1944 - Respiratory Therapy just arrived to get her EKG. Care continues.
[2017-04-17] VITALS (10 sets, daily range): BP systolic 91–133; BP diastolic 55–85; PULSE 60–71; RESP 16–18; O2SAT 93–99
[2017-04-17] MEDS: 0.9% Sodium Chloride 1,000 ML IV SCH ×3 (02:14→15:50)
[2017-04-17 03:33] LABS: BASOPHILS % (AUTO) 1.1 % (0-3); EOSINOPHILS % (AUTO) 0.4 % (0-5); MONOCYTES % (AUTO) 8.7 % (4-12); Mean Corpuscular Hemoglobin 26.9 pg (27.0-35.0); Mean Corpuscular Volume 84.3 fL (81-100); NEUTROPHILS % (AUTO) 31.7 % (40-74); Platelet Count 112 bil/L (150-400)
--- NOTE | 2017-04-17 07:20 | NUR ---
NOC PT slept well t/o the night. Mild sedation noted. VS WNL. pt on 2l NC. PT has been in NSR in the 60's and is AV paced. Denies any CP this shift. PT only complaint was some R handed pain and a bit of numbness. Explained this was likely positional and pt fell back to sleep within about 2 minutes. Pt calls appropriately for assistance to the BSC. Gait is steady. PT NPO for stress test today.
[2017-04-17] MEDS: Sodium Chloride LOK Flush 10 mL Syringe IVFLUSH SCH ×3 (08:30→23:03)
[2017-04-17] MEDS ORDERED: 0.9% Sodium Chloride 250 ML IV ONE (08:55)
[2017-04-17] MEDS: Mupirocin 2% 22 Gm Ointment TOPICAL SCH ×2 (11:23→20:47)
[2017-04-17] MEDS: Venlafaxine XR 37.5 mg ER24 Capsule PO SCH ×2 (11:23→23:01)
[2017-04-17] MEDS: Fluticasone 0.05% 15 Spray/2 Gm 16 Gm Nasal Spray NASAL SCH ×2 (11:23→20:47)
[2017-04-17] MEDS: LORazepam 1 mg Tablet PO PRN ×2 (13:37→20:47)
--- NOTE | 2017-04-17 13:39 | PCM.PNMED ---
Subjective Date of Service Apr 17, 2017 Subjective Overnight the patient says her chest pain has resolved, she reports continued left sided headache and left shoulder pain, sharp and intermittent in nature. Ms. Myers continues to reports headache. She denies any dizziness, shortness of breath, nausea, vomiting, fevers or chills. Exam Vital Signs Vital Sign - Last Date Time Temp Pulse Resp B/P Pulse Ox O2 Delivery O2 Flow Rate FiO2 04/17/17 12:52 64 04/17/17 12:09 36.9 18 133/85 96 Room Air 04/17/17 01:03 1.00 Intake and Output 04/16/17 04/16/17 04/17/17 Cumulative From/Thru 14:59 22:59 06:59 04/15/17 16:16 - 04/17/17 05:55 Intake Total 88 ml 1930 ml 594 ml 2612 ml Output Total 800 ml 800 ml Balance 88 ml 1130 ml 594 ml 1812 ml Intake Oral 1300 ml 1300 ml IV Total 88 ml 630 ml 594 ml 1312 ml Output Urine Total 800 ml 800 ml Exam General: Age-appropriate female laying in bed in NAD HEENT: NCAT. PERRLA, EOMI. Membranes pink and moist. Neck: Supple, nontender. No JVD, thyromegaly. CV: RRR, no murmurs/rubs/gallops. Chest pain not reproducible on palpation. Pulm: Coarse breath sounds bilaterally but no wheezing/rales/rhonchi. Productive cough. Abd: Soft, nontender nondistended. Bowel sounds present. Extremities: Trace edema around the ankles bilaterally, no cyanosis/clubbing. Neuro: A&Ox3. CN 2-12 intact, muscle strength 5/5 on left and 4/5 on right upper and lower extremities, no facial droop IVs and Medications Medications Reviewed: Medications were reviewed in detail Lab and Diagnostics Result Diagram: 04/17/17 0315 04/16/17 0902 X-Rays, CTs and MRIs Patient Name: KEYANNA MYERS MR#: [id number] Location: [facility] – [place] Ordering Phys: SORAIDA, ED Date of Service: 04/15/17 1622 PROCEDURE: X-RAY CHEST, TWO VIEWS ([id number]) IMPRESSION: No acute pulmonary process. Dictated by: Gwendolyn Joseph M.D. on 04/15/2017 at 18:31 Approved by: Gwendolyn Joseph M.D. on 04/15/2017 at 18:32 Cardiac Echo Impressions Echocardiogram from April 2016 reveals LV is normal size LV systolic function is mildly reduced LV ejection fraction is estimated to be 45%. There is mild global hypokinesis of the left ventricle. Right ventricle appears grossly normal in size with probable normal systolic function. Pacemaker lead in the right ventricle. Both atria are normal in size. There is no significant valvular disease. Assessment & Plan Ms. Myers is a 56-year-old female with history of chronic systolic and diastolic heart failure with AICD pacemaker, prior MS, and COPD that presented with left-sided chest pain radiating into her left neck, accompanied by nausea and shortness of breath. 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 Rodríguez. Chest pain, acute, present on admission. Improving. - Possible unstable angina (EKG showed NSR at 87 with frequent PVC's, no ST changes, negative troponin). - IV Heparin per Cardiology, Nitro d/c'd. - Troponin negative x3. - CXR as above. - Echocardiogram ordered - Nuc med stress test 04/17/17 showing abnormalities, will stay for part 2 of the Stress test 04/18/17. - Awaiting Cardiology recommendations. MRSA, present on admission. Active. - Hx of MRSA nasal pcr, Positive pcr today. - Bactriban ointment BID COPD, stable, present on admission. Ongoing. - Patient has productive cough but no consolidations on CXR. - Will start patient on Azithromycin 500mg daily for anti-inflammatory properties in the lung. - Continue with home inhalers as needed. History of mood disorder, present on admission. Stable. - Continue home Venlafaxine. History of benign-appearing pancreatic neoplasm, present on admission - Followed by Damaris Munoz. Acetaminophen for mild pain, headache, and fever when necessary. Bowel regimen Senna and MiraLAX scheduled as necessary. Zofran when necessary for nausea and vomiting. SubQ heparin for now. SCDs in place. Disposition: Patient will likely be admitted for 1-2 more days depending on the results of her cardiology work up and will be discharged when medically stable. Pain Evaluation: Adequate Pain Control Resuscitation Status: CPR: Attempt Resuscitation Attending Statement The patient was seen and examined together with Dr. Kovacs on 04/17/17 and I have added additional information to the note above. MOMO KOVACS DO Apr 17, 2017 13:39 Richelle Garcia DO Apr 20, 2017 13:51
--- NOTE | 2017-04-17 13:49 | DRSVH ---
PROCEDURE: CT ANGIO HEAD AND NECK (P) INDICATIONS: headache R arm weakness TECHNIQUE: Pre-contrast 4.5 mm thick sections acquired from the foramen magnum to the vertex. After the adminis tration of intravenous contrast, 1 mm thick sections acquired from the aortic arch through the [place] of [place]. Post-contrast 4.5 mm thick sections then re-acquired from the foramen magnum to the vert ex. 3-dimensional dhgpdbi-hrkbgdacw-esufoadcbn (MIP) and/or volume rendering reformats were acquired of the central intracranial vasculature and neck separately. For radiation dose reduction, the foll owing was used: automated exposure control, adjustment of mA and/or kV according to patient size. COMPARISON: None. FINDINGS: Image quality: Excellent. BRAIN: CSF spaces: Ventricles are normal in size and shape. Basal cisterns are patent. No extra-axial flu id collections. Brain: No midline shift. No intracranial bleeds or masses. Isaac-white matter interface appears int act. Skull and face: Calvarium and facial bones appear intact, without suspicious lesions. Orbits appear normal. Sinuses: Sinuses and mastoids are clear. HEAD CT ANGIOGRAPHY: Anterior circulation: Intracranial internal carotid arteries are normal in size and flow. The flow within the paired anterior cerebral arteries is normal and symmetric. The flow within the middle cer ebral arteries is normal and symmetric. The anterior communicating artery is seen. No aneurysms are seen. Posterior circulation: Visualized portions of the vertebral arteries demonstrate normal caliber, and join to form a normal appearing basilar artery. Flow within the posterior cerebral arteries is norm al and symmetric. No aneurysms are seen. NECK CT ANGIOGRAPHY: Carotid system: The great vessels demonstrate a conventional anatomy as they arise from the aortic a rch. The origins of the common carotid arteries appear patent. The common carotid arteries demonstr ate normal caliber and courses. The bifurcation regions are both widely patent. The internal caroti d arteries demonstrate normal calibers and courses. Posterior circulation: The origins of the vertebral arteries both appear widely patent. The more webber perior extracranial portions of both vertebral arteries also demonstrate normal courses and calibers. They join to form a normal appearing basilar artery. Soft tissues: Visualized neck soft tissues demonstrate no suspicious abnormalities. Bones: No suspicious bony lesions. Visualized cervical spine appears normally aligned. Prominent d egenerative changes including marked reversal of cervical curvature is present. IMPRESSION: 1. No acute intracranial process. 2. No areas of hemodynamically significant stenosis, vascular occlusion or aneurysmal dilation within the anterior circulation. 3. No areas of hemodynamically significant stenosis, vascular occlusion or aneurysmal dilation within the posterior circulation. 4. No areas of hemodynamically significant stenosis, vascular occlusion or aneurysmal dilation within the neck vasculature. Dictated by: Gwendolyn Joseph M.D. on 04/17/2017 at 13:43 Approved by: Gwendolyn Joseph M.D. on 04/17/2017 at 13:47
--- NOTE | 2017-04-17 15:09 | NUR ---
Social Work: Initial Assessment/Multidisciplinary Rounds D: Per EMR review, pt is a 56 year old female admitted for [facility] with Medicare. Pt has no LTC or VA benefits.PCP is Cristobal Berkowitz MD. NOK is Jeaneth Torres, sister, . Advanced directives information provided to patient. Readmit score is low, 2/8. Pt discussed in am rounds. Pt scheduled for stress test today. Capacity for self care discussed- no concerns identified. FISHERIES INSPECTOR met with the patient at bedside. Sw role explained, contact info provided and d/c planning checklist provided. Pt lives in [place] with her son and family. Pt uses no DME, has never had HH but has a history at [facility]. Pt lives in a single story home with 3 steps to enter. Pt expresses hopes to discharge home but is receptive to discharge planning if needs arise. Pt's son will transport once she is stable. EMR reviewed; pt is ambulating I to the bathroom. A: pt who is I at baseline. P: Anticipate discharge home; FISHERIES INSPECTOR to continue to follow to assess for needs DARLYN Magallanes Addendum: 04/17/17 at 1515 by ABEBA CAMEJO Amended: Links added.
--- NOTE | 2017-04-17 16:45 | NUR ---
Stress Test 08 - Spoke to Nuclear Medicine who were speaking for Dr. Mccabe. There were concerns that her blood pressure was too low with some of the lieutenant shift supervisor vitals (90s/50s). They said to take her blood pressure, then give her a 250 mls bolus of Normal Saline and then give her Normal Saline at 100 mls/hour after that, and recheck her blood pressure. Took her blood pressure prior to the bolus and noted it was 123/81. Notified Nuclear Medicine who with Dr. Mccabes orders said to hold the Normal Saline and that she could be taken to her stress test. 853 - Spoke to Dr. St who stated he was concerned that at some point she may of had a stroke as she was complaining of right wrist discomfort, weakness, and a headache. 941 - She left for the stress test at this time. Telemetry removed and the Recycling Manager was notified. 45 - Discussed her care with Dr. Garcia, Dr. St, and the rest of the multidisciplinary care team during morning rounds. The possibility of a previous stroke was discussed and Dr. Garcia said she would assess her. 103 - Nuclear Medicine called and said per Dr. Mccabe to continue her heparin drip once she returned. They also asked that her atenolol be given as she was experiencing multiple PVCs. Informed them that there was no atenolol in her eMAR and that there was none listed in her home medication req. They said they would let Dr. Mccabe know. 1110 - She returned to [facility] 2030 and was placed back on telemetry. 1120 - Spoke to Dr. Mccabe who said to start her on Metoprolol, discontinue her Normal Saline, and keep her Heparin drip running until the test results were in. 1245 - She left for a CT scan and returned at 1300. 1325 - Spoke to Dr. Mccabe who said she would need her second day of the stress testing which would happen tomorrow. 1625 - Updated Dr. St and read him the results of the stress test in her hard chart. No new orders. Care continues.
[2017-04-17] MEDS: Heparin 5,000 Unit/mL Inj IVPUSH PRN (17:35)
--- NOTE | 2017-04-17 19:04 | NUR ---
Chest Pain 1654 - She had done well all day and had denied chest pain until this time. She complained of 10/10 sharp chest pain that was localized from her chest to her back on the left side. The Cryptologic Technician called to notify this nurse that she had become A-paced starting around 1600. 1704 - Notified Dr. St of her chest pain and gave her the IV Morphine. She refused the Nitro. Called Respiratory Therapy for a STAT EKG which was performed and showed her being A-paced, but was otherwise unremarkable. 1742 - Paged Dr. St and updated him on her care. 1808 - Her chest pain was resolving and Dr. St was notified. No new orders. Care continues.
[2017-04-18] VITALS (9 sets, daily range): BP systolic 103–131; BP diastolic 61–80; PULSE 60–68; RESP 12–18; O2SAT 96–99
[2017-04-18] MEDS: 0.9% Sodium Chloride 1,000 ML IV SCH ×3 (02:22→23:00)
[2017-04-18] MEDS: LORazepam 1 mg Tablet PO PRN ×2 (02:32→17:06)
[2017-04-18 03:57] LABS: APPEARANCE,URINE CLEAR (CLEAR,HAZY); COLOR,URINE YELLOW (YELLOW)
[2017-04-18 03:58] LABS: OCCULT BLOOD,URINE NEGATIVE (NEGATIVE); UROBILINOGEN,URINE NORMAL (NORMAL)
--- NOTE | 2017-04-18 04:30 | NUR ---
Pain pt complained of chest pain at start of shift 07/12, she was given 2mg IV morphine effectively reduced her pain. later on in the shift she had pain that was radiating from her back she was unsure if it was chest pain or if it was an exacerbation of her chronic back pain. she was again given 2mg IV morphine. she was also given 1mg of PO ativan because she said she was having severe restless legs and anxiety. pt was able to fall back asleep after the administration of the morphine and ativan. no complaints of pain at this time. tele shows a-paced in the 60s.
[2017-04-18 07:39] LABS: Mean Corpuscular Hemoglobin 27.7 pg (27.0-35.0); Mean Corpuscular Volume 82.8 fL (81-100)
[2017-04-18] MEDS: Sodium Chloride LOK Flush 10 mL Syringe IVFLUSH SCH ×2 (08:30→17:06)
[2017-04-18] MEDS: Venlafaxine XR 37.5 mg ER24 Capsule PO SCH ×2 (10:31→20:01)
[2017-04-18] MEDS: Fluticasone 0.05% 15 Spray/2 Gm 16 Gm Nasal Spray NASAL SCH ×2 (10:32→20:01)
[2017-04-18] MEDS: Mupirocin 2% 22 Gm Ointment TOPICAL SCH ×2 (10:32→20:01)
--- NOTE | 2017-04-18 16:40 | DRSVH ---
PROCEDURE: 2 DAY STRESS TEST Rest and pharmacological stress myocardial perfusion SPECT with gated imaging and ejection fraction RADIOPHARMACEUTICAL: 20.5 mCi Tc-99m tetrafosmin IV at rest and 22.1 mCi Tc-99m tetrafosmin IV at pea k effect of pharmacological stress. Tdk-shz-fsxxidzo was performed. INDICATIONS: CHEST PAIN. TECHNIQUE: Radiopharmaceutical was injected at peak stress test, and also at rest. SPECT images wer e obtained. SPECT myocardial perfusion images were displayed in short axis, horizontal long axis, an d vertical long axis views. Gated images were reviewed using Auto[employer] software. COMPARISON: None. CARDIAC STRESS: A pharmacologic stress test was performed under the supervision of an attending staff, using an infus ion of 5.0 mm 0.4 mg Lexiscan. Hemodynamic data: There is normal blood pressure and heart rate response to pharmacologic stress. Symptoms: The patient denied anginal chest pain. Aminophylline: 4 mL 100 mg EKG: Slight increased ST depression in leads V4 and V5 with stress compared to diffuse baseline ST de pression throughout all leads. PVCs are noted. FINDINGS: Raw data: There is good myocardial uptake of radiotracer. No significant motion artifacts. Left ventricle function: Gated images demonstrate normal left ventricular wall thickening. There is an appearance of global hypokinesia. No transient ischemic dilation. Left ventricle resting end palacios tolic volume is 103 mL. Left ventricle stress ejection fraction is 35%; normal range is above 45%. Myocardial perfusion: There is a small fixed perfusion defect within the apex. No reversible defects are identified. IMPRESSION: 1. No reversible stress perfusion defects indicative of ischemia. 2. Depressed ejection fraction at 35%. 3. No definitive EKG changes of ischemia. PQRS ATTESTATIONS: Measure 322 - Is this imaging test primarily performed on a low-risk surgery patient for preoperative evaluation within 30 days preceding their low-risk non-cardiac surgery? Low-risk surgery is defined as cardiac or myocardial infarction less than 1%, including (but not limited to) endoscopic pr ocedures, superficial procedures, cataract surgery, and excisional breast surgery: Answer: No Measure 323 - Is this imaging test performed primarily for the monitoring of an asymptomatic patient who had percutaneous coronary intervention on the visit date or within 2 years of the visit date? An swer: No Measure 324 - Is this imaging test performed primarily for the initial detection and risk assessment on an asymptomatic, low coronary heart disease patient? Low CHD risk definition = clinicians should consider the maximum number of available patient factors used to estimate risk based on Fox[place] (A TP III criteria), typically age, gender, diabetes, smoking status, and use of blood pressure medicati on, and integrate age appropriate estimates for missing elements, such as LDL or standard blood press ure. Answer: No Dictated by: Gwendolyn Joseph M.D. on 04/18/2017 at 16:31 Approved by: Gwendolyn Joseph M.D. on 04/18/2017 at 16:38
--- NOTE | 2017-04-18 16:56 | NUR ---
Vtach Pt had 3 beats of Vtach at 1656. When asked pt if felt it pt stating yes. MD made aware. no new orders at this time. Pt getting pain meds for abdominal cramps and headache. When pt complaining of chest pain, pt refusing nitroglycerin. Morphine given with minimal results per pt. MD aware, ongoing care.
[2017-04-18] MEDS: Vancomycin Dose per Pharmacist XX SCH (19:05)
--- NOTE | 2017-04-18 19:08 | PCM.PNMED ---
Subjective Date of Service Apr 18, 2017 Subjective Overnight there were no acute events. Ms. Myers reports that her only complaint is intermittent chest pain along with her ongoing headache. She denies any shortness of breath, palpitations, nausea/vomiting, increased LE edema, fever/chills. She is wondering what her stress test result showed. Exam Vital Signs Vital Sign - Last Date Time Temp Pulse Resp B/P Pulse Ox O2 Delivery O2 Flow Rate FiO2 04/18/17 16:15 37.1 65 16 120/70 99 Room Air 04/17/17 01:03 1.00 Intake and Output 04/17/17 04/17/17 04/18/17 Cumulative From/Thru 15:00 23:00 07:00 04/15/17 16:16 - 04/18/17 06:53 Intake Total 150 ml 1538 ml 740 ml 5040 ml Output Total 600 ml 900 ml 1150 ml 3450 ml Balance -450 ml 638 ml -410 ml 1590 ml Intake Oral 150 ml 570 ml 540 ml 2560 ml IV Total 968 ml 200 ml 2480 ml Output Urine Total 600 ml 900 ml 1150 ml 3450 ml Exam General: Age-appropriate female laying in bed in NAD HEENT: NCAT. PERRLA, EOMI. Membranes pink and moist. Neck: Supple, nontender. No JVD, thyromegaly. CV: RRR, no murmurs/rubs/gallops. Chest pain continues to be unreproducible on palpation. Pulm: Coarse breath sounds bilaterally but no wheezing/rales/rhonchi. Productive cough. Abd: Soft, nontender nondistended. Bowel sounds present. Extremities: Trace edema around the ankles bilaterally, no cyanosis/clubbing. Neuro: A&Ox3. CN 2-12 intact, muscle strength greater on left than right upper and lower extremities. Psych: Normal mood and affect. IVs and Medications Medications Reviewed: Medications were reviewed in detail Lab and Diagnostics Result Diagram: 04/18/1750 04/18/17 0650 X-Rays, CTs and MRIs Patient Name: KEYANNA MYERS MR#: [id number] Location: [facility] [place] Ordering Phys: [facility], ED Date of Service: 04/15/17 162 PROCEDURE: X-RAY CHEST, TWO VIEWS ([id number]) IMPRESSION: No acute pulmonary process. Dictated by: Gwendolyn Joseph M.D. on 04/15/2017 at 18:31 Approved by: Gwendolyn Joseph M.D. on 04/15/2017 at 18:32 Cardiac Echo Impressions Echocardiogram from April 2016 reveals LV is normal size LV systolic function is mildly reduced LV ejection fraction is estimated to be 45%. There is mild global hypokinesis of the left ventricle. Right ventricle appears grossly normal in size with probable normal systolic function. Pacemaker lead in the right ventricle. Both atria are normal in size. There is no significant valvular disease. Additional Diagnostics Stress Tests 04/17, 04/18 IMPRESSION: 1. No reversible stress perfusion defects indicative of ischemia. 2. Depressed ejection fraction at 35%. 3. No definitive EKG changes of ischemia. PQRS ATTESTATIONS: Measure 322 - Is this imaging test primarily performed on a low-risk surgery patient for preoperative evaluation within 30 days preceding their low-risk non- cardiac surgery? Low-risk surgery is defined as cardiac or myocardial infarction less than 1%, including (but not limited to) endoscopic procedures, superficial procedures, cataract surgery, and excisional breast surgery: Answer : No Measure 323 - Is this imaging test performed primarily for the monitoring of an asymptomatic patient who had percutaneous coronary intervention on the visit date or within 2 years of the visit date? Answer: No Measure 324 - Is this imaging test performed primarily for the initial detection and risk assessment on an asymptomatic, low coronary heart disease patient? Low CHD risk definition = clinicians should consider the maximum number of available patient factors used to estimate risk based on [place] ( ATP III criteria), typically age, gender, diabetes, smoking status, and use of blood pressure medication, and integrate age appropriate estimates for missing elements, such as LDL or standard blood pressure. Answer: No Dictated by: Gwendolyn Joseph M.D. on 04/18/2017 at 16:31 Approved by: Gwendolyn Joseph M.D. on 04/18/2017 at 16:38 Assessment & Plan Ms. Myers is a 56-year-old female with history of chronic systolic and diastolic heart failure with AICD pacemaker, prior NE, and COPD that presented with left-sided chest pain radiating into her left neck, accompanied by nausea and shortness of breath. 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 Rodríguez. Chest pain, acute, present on admission. Improving. - Possible unstable angina (EKG showed NSR at 87 with frequent PVC's, no ST changes, negative troponin). - IV Heparin per Cardiology, Nitro d/c'd. - Troponin negative x3. - CXR as above. - Nuc med stress test as above - Echocardiogram read pending - Cardiology is following, await their recommendations MRSA, present on admission. Active. Ongoing. - MRSA positive nasal swab - MRSA contact precautions - Bactriban ointment BID COPD, stable, present on admission. Ongoing. - Patient has productive cough but no consolidations on CXR. - Azithromycin 500mg daily for anti-inflammatory properties in the lung; discontinue on 04/20 for a full 5 day course - Continue with home inhalers as needed. History of mood disorder, present on admission. Stable. - Continue home Venlafaxine. History of benign-appearing pancreatic neoplasm, present on admission - Followed by Damaris Munoz. Acetaminophen for mild pain, headache, and fever when necessary. Bowel regimen Senna and MiraLAX scheduled as necessary. Zofran when necessary for nausea and vomiting. SubQ heparin for now. SCDs in place. Disposition: Patient will likely be admitted for 1-2 more days depending on the results of her cardiology work up and will be discharged when medically stable. Resuscitation Status: CPR: Attempt Resuscitation Attending Statement The patient was seen and examined together with Dr. Lopes on 04/18/2017 and I agree with the history, exam and plan as outlined in the note above. . Yoni Lopes DO Apr 18, 2017 18:49 Giancarlo Obando MD Apr 22, 2017 08:17
[2017-04-18] MEDS ORDERED: Vancomycin Inj 1,250 MG in 0.9% Sodium Chloride 250 ML IV ONE (21:00)
[2017-04-19] VITALS (8 sets, daily range): BP systolic 113–137; BP diastolic 65–82; PULSE 61–78; RESP 14–18; O2SAT 96–100
[2017-04-19] MEDS: Sodium Chloride LOK Flush 10 mL Syringe IVFLUSH SCH ×4 (00:33→22:07)
[2017-04-19] MEDS: LORazepam 1 mg Tablet PO PRN ×2 (00:33→09:02)
[2017-04-19] MEDS: Polyethylene Glycol (PEG) 17 Gm Powder PO PRN ×2 (01:01→22:06)
[2017-04-19] MEDS: Senna-Docusate 8.6-50 mg Tablet PO PRN ×2 (01:01→22:05)
--- NOTE | 2017-04-19 02:18 | NUR ---
Pain Pt continues to c/o 05/[address] Sosa notified, order for 50 mg hydroxyzine PO x1 received. Addendum: 04/19/17 at 0544 by GABRIELLE DAVE RN No ECHO results rec'd this shift. Confirmed w Dr. Hines that vanco is to be held until ECHO confirms vegetation on pacer wires. Pt reported 5 hours of good sleep after administration of hydroxyzine, pain 10 at this time, which she states is tolerable. Fentanyl patch was moved by staff during stress test and folded in on itself. Called pharmacy, who changed administration time. Patch was removed and a new patch was placed on the L shoulder by this lead technical writer. Care continues.
[2017-04-19 05:05] LABS: BASOPHILS % (AUTO) 0.6 % (0-3); EOSINOPHILS % (AUTO) 0 % (0-5); MONOCYTES % (AUTO) 8.2 % (4-12); Mean Corpuscular Hemoglobin 27.7 pg (27.0-35.0); Mean Corpuscular Volume 80.4 fL (81-100); NEUTROPHILS % (AUTO) 36.7 % (40-74); Platelet Count 163 bil/L (150-400)
--- NOTE | 2017-04-19 08:12 | DRSVH ---
[facility] [address] [place] [address] Echocardiogram Report Name: KEYANNA MYERS Study Date: 04/18/2017 Height: 63 in Hospital Exam Location: [facility] Weight: 136 lb Gender: Female BSA: 1.6 m2 : 1960 Age: 56 yrs BP: 106/66 mmHg Reason For Study: Chest pain Ordering Physician: Performed By: Augusto Calixto Referring Physician: MARKOS REAL Interpretation Summary There are two mobile echogenicities (consider vegetations) attatched to the atrial side of the RV pacer wire. The left ventricle is borderline dilated. Left ventricular wall thickness is at the upper limits of normal. Left ventricular ejection fraction is estimated to be 40%. There is hypokinesis of the basal to mid septum and basal to mid inferior wall. There is mild to moderate mitral regurgitation. The right ventricular systolic pressure is estimated at 34 mmHg assuming a right atrial pressure of 15 mm Hg. Compared to the prior exam, left ventricular function is slightly decreased. Procedure: A two-dimensional transthoracic echocardiogram with color flow and Doppler was performed. The study quality was technically good. Comparison is made with the echocardiogram of 04/06/16. The patient was in normal sinus rhythm during the exam. Left Ventricle: The left ventricle is borderline dilated. Left ventricular wall thickness is at the upper limits of normal. Left ventricular ejection fraction is estimated to be 40%. Compared to the prior exam, left ventricular function is slightly decreased. There is hypokinesis of the basal to mid septum and basal to mid inferior wall. Right Ventricle: The right ventricle grossly appears normal in size with probable normal systolic function. There is a pacemaker lead in the right ventricle. Atria: The left atrium is moderately dilated. Right atrial size is normal. There is a catheter/pacemaker lead seen in the right atrium. The interatrial septum is intact with no evidence for an atrial septal defect. Mitral Valve: The mitral valve leaflets appear borderline thickened, but open well. There is mild to moderate mitral regurgitation. Aortic Valve: The aortic valve is normal in structure and function. No aortic regurgitation is present. Tricuspid Valve: The tricuspid valve is not well visualized, but is grossly normal. There is mild tricuspid regurgitation. The right ventricular systolic pressure is estimated at 34 mmHg assuming a right atrial pressure of 15 mm Hg. Pulmonic Valve: The pulmonic valve is not well seen, but is grossly normal. There is a trace or physiologic amount of pulmonic regurgitation. Great Vessels: The aortic root is normal size. The dimensions of the ascending aorta are normal. The pulmonary artery is normal size. The IVC is dilated (diameter is greater than 2.1 cm) and it collapses less than 50% with a sniff. This suggests a high right atrial pressure of 15 mm Hg. Pericardium/ Pleura There is no pericardial effusion. There is no pleural effusion. MMode/2D Measurements & Calculations LVIDd: 5.2 cm RA long axis: 4.0 cm LVOT diam: 2.1 cm LVIDs: 4.5 cm LA A2 area: 19.1 cm AoV Opening FS: 14.4 % LA A4 area: 24.7 cm RA area: 13.4 cm EPSS: 1.3 cm LA length (vol) RA vol: 38.0 ml Ao root diam IVSd: 0.93 cm RA : 23.2 ml/m2 LVPWd: 1.0 cm LA vol: 73.5 ml asc Aorta Diam LA vol index Ao Arch Diam (Prox Trans): 2.4 cm IVC diam: 2.2 cm EDV(MOD-sp2) LV palacios. diameter/BSA LV sys. diameter/BSA (cm/m^2): 3.2 (cm/m^2): 2.7 ESV(MOD-sp2) EF(MOD-sp2) Doppler Measurements & Calculations Ao V2 max: 108.6 cm/secMV E max derrek MV E/A: 1.3 TR max derrek Ao max P.7 mmHg : 87.4 cm/sec Med Peak E' Derrek : 220.2 cm/sec Ao mean P.6 mmHg MV A max derrek TR max PG LVOT Max Derrek : 65.7 cm/sec E/E' med: 12.4 : 19.4 mmHg : 53.6 cm/sec Lat Peak E' Derrek PA V2 max : 58.7 cm/sec MAURISIO(I,D): 1.9 cm E/E' lat: 14.1 PA mean PG sev ratio: 0.55 E/e' average : 0.87 mmHg MV dec time: 0.21 sec Ao V2 mean LV V1 max PG PA V2 mean : 77.6 cm/sec : 45.0 cm/sec Ao V2 VTI LV V1 VTI: 13.9 cmPA pr(Accel) : 8.9 mmHg MAURISIO(V,D): 1.7 cm2 MAURISIO indexed to BSA (cm^2/m^2): 1.1 Electronically signed by: Mark Medel on Reading Physician:04/19/2017 08:11 AM
[2017-04-19] MEDS ORDERED: Vancomycin Inj 1,250 MG in 0.9% Sodium Chloride 250 ML IV ONE (08:30)
--- NOTE | 2017-04-19 09:00 | NUR ---
vanco administration Dr Medel called this AM asking for pt's MD to check echo report. Dr St order to give pt Vanco. Vanco given. see med administration.
[2017-04-19] MEDS: 0.9% Sodium Chloride 1,000 ML IV SCH ×2 (09:03→17:21)
[2017-04-19] MEDS: Fluticasone 0.05% 15 Spray/2 Gm 16 Gm Nasal Spray NASAL SCH ×2 (09:03→22:07)
[2017-04-19] MEDS: Mupirocin 2% 22 Gm Ointment TOPICAL SCH ×2 (09:03→22:08)
[2017-04-19] MEDS: Venlafaxine XR 37.5 mg ER24 Capsule PO SCH ×2 (09:07→22:08)
[2017-04-19] MEDS: Vancomycin Dose per Pharmacist XX SCH (09:17)
--- NOTE | 2017-04-19 14:49 | NUR ---
Case Management: Spoke with patient at length regarding observation/inpatient status and associated billing issues. Patient desires a [facility] application. SS notified and will address patient's financial concerns. Otto Viveros RN
--- NOTE | 2017-04-19 16:29 | PCM.CONPHA ---
Subjective Requesting Provider: MOMO KOVACS DO chest pain Reason for Pharmacy Consult: Anticoagulation Management Assessment/Plan Assessment/Plan Enoxaparin dosing per pharmacy for unstable angina and pancreatic mass that is possibly cancerous: Full treatment dose is enoxaparin 1mg/kg subcutaneously bid=60mg bid. Ifrah Aleman [facility] Apr 19, 2017 16:29
--- NOTE | 2017-04-19 16:39 | CONS ---
[address] [address] CONSULTATION REPORT PATIENT: KEYANNA MYERS : 1960 MR#: [id number] ADMIT: 04/16/2017 JOB ID: [id number] DATE OF SERVICE: 04/19/[address] Obando for this timely consult. REASON FOR CONSULTATION: Vegetation seen on pacer wires, rule out pacer infection and/or endocarditis. 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 In addition, she has underlying COPD, an unexplained pancreatic mass which may or may not be malignant, a lupus anticoagulant, IgA deficiency, rectal prolapse, chronic pain issues, iron deficiency anemia and poor dentition. The patient was admitted to this facility on this occasion on April 16 because of chest pain associated with shortness of breath. She also reported some headache. It was initially felt this was not on a cardiovascular basis, though subsequent echocardiogram that was done to evaluate her left ventricular function disclosed more or less incidental finding of vegetations on the atrial pacing wires. This immediately raised concerns about possible endocarditis and/or pacer infection and blood cultures x3 sets were done and the patient was then started on vancomycin. Of note though, when the patient first came in, there were concerns about a COPD exacerbation as she had been coughing, she says for a total of three months, more or less continuously, and she was started unfortunately on azithromycin before any blood cultures were done. The patient tells us that for three months or more, she has had a persistent productive cough associated with low-grade fevers, and for that she has received three courses of Augmentin as well as one or more courses of azithromycin. She has essentially been on antibiotics for 90 days straight by her report and then when she came in the hospital this time, she was restarted or continued on azithromycin once again, which predates the blood cultures done yesterday, which were requested after the finding of clot or vegetation on the pacer wires. The patient tells us in great detail about this three months of productive cough, fevers which she says were as high as 101, minor chills, and just generalized malaise. She has a wide variety of other concomitant symptoms including headaches, fragile teeth which keep breaking off at the gumline, nausea, malaise and some sore throat. She also notes that from time to time, she is short of breath and she requires a cane to get around. PAST MEDICAL HISTORY: 1. Organic heart disease. a. Coronary artery disease. b. CHF. c. Need for pacer. d. History of multiple cardiac arrests per patient. 2. COPD. 3. Pancreatic mass, which is being followed by Damaris Munoz, but is not felt at this time to be malignant. 4. Lupus anticoagulant. 5. IgA deficiency. 6. Iron deficiency anemia requiring iron transfusion. 7. History of rectal prolapse requiring surgery last year at [facility]. 8. Chronic pain syndrome, requiring oral narcotics. 9. Chronic headaches. SOCIAL HISTORY: The patient is an ex-cigarette smoker having quit two or three years ago. She does not consume alcohol. She denies ever using intravenous or any illicit drugs, though she does use medical marijuana. 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 FAMILY HISTORY: Negative for TB in first- and second-degree relatives. REVIEW OF SYSTEMS: Positive for many complaints. The patient reports persistent headaches. She states she has a long history of headaches but these seem to be getting worse. She also notes that her vision, which has not been optimal for a long time, is also gradually declining in a binocular fashion. She notes she has sores within her nose and these have been attributed to MRSA in the past. She also has declining hearing. She reports her teeth are "falling apart," with teeth breaking off at the gumline with increasing frequency. She notes she has had some degree of neck pain and also has had the cough which has been very severe for three months and associated with some weight loss. The cough has not responded to a minimum of four or perhaps five courses of oral azithromycin and Augmentin, and in fact, none of these had any impact on the cough. The cough has been productive at times but without hemoptysis. She has had periods of chest pain including the one that precipitated this admission on April 16. She has not had any problems per se with the pacer. She has had nausea but no significant vomiting. She has not had diarrhea and instead has constipation. She has had a great deal of problems with rectal prolapse which has led to surgery in the past. No recent dysuria, urgency, or frequency. She has had some problems with her left knee when that has been swollen and painful but that seems to have improved lately, according the patient. She walks with a cane and is quite disabled by the above-mentioned problems. No recent skin rash. She has noticed swelling of the legs bilaterally but that seems improved recently as compared to her baseline. No focal neurologic complaints. Remainder of the review of systems is negative. PHYSICAL EXAMINATION: Reveals a chronically ill-appearing woman, looks older than 56. Temperature 37 degrees, pulse 61, respiratory rate 18, blood pressure 114/69. She is saturating well on room air at this point, and looks reasonably comfortable despite many ongoing complaints. Her head is without evidence of trauma nor is there any temporal wasting. Her BMI is currently 24.5 and her weight 63 kg. Her eyes do have some conjunctival pallor, not severe though. No conjunctivitis or conjunctival hemorrhages are seen. The nose has, in the left nostril, an erythematous nodule. Oral cavity: She has poor dentition with evidence of some gingivitis and some teeth that are broken off and appear carious. No pharyngitis is seen. No buccal ulcers are seen. Neck is without adenopathy or JVD. Lungs reasonably clear with a very poor-quality stethoscope in the MRSA isolation room. Cardiac tones: Regular rate and rhythm without loud murmur at least as we once again have the poor-quality stethoscope. Abdomen is reportedly tender wherever one palpates, but I do not appreciate any rebound or guarding, nor is there any organomegaly or ascites. She does not currently have a Sinclair catheter. There is no suprapubic tenderness. There is no evidence of synovitis. No cellulitis is seen. There are no peripheral stigmata of endocarditis on the hands, though she does have painted fingernails. Her feet are reasonably well perfused, warm, and with palpable pulses. Neurologically, the patient is intact throughout. LABORATORIES: Include white count low at all times, between 2500 and 4500. The diff on that white count is normal except there is a reverse of the normal [id number] ratio. Creatinine is 1. LFTs completely normal. Lipase was 39, which is normal. We have just ordered CRP and procalcitonin as well as sed rate. All of these values are pending. Urinalysis without white cells and without red cells. Micro studies include three sets of blood cultures done yesterday evening after the echo was read and showed the vegetations or clot on the pacer wires. Note that all of these were drawn with azithromycin on board. Sputum Gram stain from admission is basically negative. A MRSA swab of the nares was positive but note that this patient does have positive nasal and other cultures going back for MRSA seven years in the computer so this is not a new thing. IMAGING: Includes a chest x-ray, which we reviewed on the view screen and it is essentially normal to my eye, and that is my interpretation and the radiologists concur that it is a clear film. In addition, she has had a stress test for ischemia which shows no reversible ischemia. Her ejection fraction is 35%, though. She also had a head/neck CTA with brain perfusion which was done because of her headaches basically. This shows no acute intracranial process and no significant areas of vascular stenosis. The echocardiogram report was reviewed. The patient had a transthoracic so far and it shows two mobile echogenicities attached to the atrial side of the RV pacer wire. There are also wall motion abnormalities, moderate mitral regurgitation, and a left ventricular ejection fraction, as mentioned of only 40%. IMPRESSION: This is a very confusing case of a woman with an extraordinarily complicated past medical history who presents with some shortness of breath and chest pain. Acute ischemia has not been found and an echo showed a surprising finding of vegetations on the right atrial lead. This certainly raises the possibility of pacer wire infection, but the patient's vital signs, physical examination, and laboratory studies would all argue against an ongoing pacer infection. Pacer wire infections should represent basically continuous bacteremias and we should be able to readily capture this bacteremia unless it involves an unusual organism, such as Bartonella, which cannot be cultured. Most pacer wires are due to gram-positive infections and these should be readily obtainable in the blood cultures. The confusing factor here is that she was started on azithromycin at the time of admission and had been receiving it for some period of time prior to admission, raising the possibility that we might have falsely negative blood cultures. One way to deal with this would simply be to assume that her pacer is infected and proceed along those lines, which would involve six weeks of intravenous antibiotics without positive culture and pacer removal. This would be an enormous undertaking, and I think in view of her complete lack of toxicity, we are justified to follow a radically different course, which would be to stop all of her antibiotics and watch. We can obtain new, better quality blood cultures over the next few days as we continue to watch this patient very closely. RECOMMENDATIONS: 1. I have called the micro laboratory and asked them to switch the blood cultures we have now from routine to fungal blood cultures, which will give us a better chance to capture fungi as well as bacteria. 2. We have ordered a CRP, a sed rate, and a procalcitonin. 3. I agree with the Bactroban she is receiving. 4. I would stop her current antibiotics, which include vancomycin and azithromycin. 5. We will check an HIV and a hepatitis C, which the patient is in agreement with. Note that these were negative seven years ago but have not been checked since that time. 6. The patient should undergo transesophageal echocardiography. At this point, it is very unclear what is going on, of course, with respect to these pacer wires, and if we could get a better look with a transesophageal echo, that may be of value. Additionally, this will provide a better look at the valves to see if there could be concomitant vegetations. 7. My overall sense of this case is that the vegetations on the pacer wires are noninfectious and related to a hypercoagulable state secondary to her lupus anticoagulant or perhaps her pancreatic mass. There is certainly some concern about possible lingering infection as she has been having low-grade fevers and cough for months, but this has occurred in the setting of negative chest x-rays and these fevers have been all outpatient. I think, at this point, it is safe enough to go ahead and stop antibiotics and carefully watch this complex patient.
--- NOTE | 2017-04-19 17:03 | NUR ---
Social Work : Multidisciplinary Rounds/Cont.D/C Planning Data& Assessment: Pt was discussed in AM rounds today, pt has endocarditis. Pt switched to inpt. SW met with pt at bedside to check in and assess for any unmet needs. Pt had questions regarding her status and billing. UR RN notified. SW to follow up with pt regarding associate financial representative application per UR RN request. Pt denies any other needs at this time. SW to continue to follow for IV ABX needs if appropriate. Plan: Anticipate discharge home when medically ready. SW to continue to follow for IV ABX needs if appropriate. SW to continue to follow. DARLYN Whitten
--- NOTE | 2017-04-19 19:57 | PCM.PNMED ---
Subjective Date of Service Apr 19, 2017 Subjective Overnight there were no acute events. Ms. Myers says her headache is a bit better but is wondering what is going on with her heart. She denies any fever/chills, nausea/vomiting, shortness of breath, increasing chest pain or palpitations. Of note, with the recent cardiac echo results we had an in depth discussion about her health as aside from the chest pain and headache she denied other symptoms - however, she did admit to periodic fever/chills for the past couple months, substantial weight loss without intention and increasing fatigue that happened well prior to her hospital visits and she did not think they were that relevant. Exam Vital Signs Vital Sign - Last Date Time Temp Pulse Resp B/P Pulse Ox O2 Delivery O2 Flow Rate FiO2 04/19/17 15:51 78 18 137/82 96 Room Air 04/19/17 12:30 37.0 04/17/17 01:03 1.00 Intake and Output 04/18/17 04/18/17 04/19/17 Cumulative From/Thru 15:00 23:00 07:00 04/15/17 16:16 - 04/19/17 05:45 Intake Total 336 ml 5376 ml Output Total 3450 ml Balance 336 ml 1926 ml Intake Oral 336 ml 2896 ml IV Total 2480 ml Output Urine Total 3450 ml # Voids 1 1 Exam General: Age-appropriate female laying in bed watching TV in NAD. HEENT: NCAT. PERRLA, EOMI. Membranes pink and moist. Multiple broken teeth without signs of overt infection. Neck: Supple, nontender. No JVD, thyromegaly. CV: RRR, no murmurs/rubs/gallops. Pulm: Coarse breath sounds bilaterally but no wheezing/rales/rhonchi. Productive cough. Abd: Soft, nontender nondistended. Bowel sounds present. Extremities: Trace edema around the ankles bilaterally, no cyanosis/clubbing. Neuro: A&Ox3. CN 2-12 intact, muscle strength greater on left than right upper and lower extremities. Psych: Normal mood and affect. IVs and Medications Medications Reviewed: Medications were reviewed in detail Lab and Diagnostics Result Diagram: 04/19/17 0502 04/19/17 0502 X-Rays, CTs and MRIs Patient Name: KEYANNA MYERS MR#: [id number] Location: [facility] [place] Ordering Phys: JOSE QUIGLEY MD Date of Service: 04/15/17 1622 PROCEDURE: X-RAY CHEST, TWO VIEWS ([id number]) IMPRESSION: No acute pulmonary process. Dictated by: Gwendolyn Joseph M.D. on 04/15/2017 at 18:31 Approved by: Gwendolyn Joseph M.D. on 04/15/2017 at 18:32 Cardiac Echo Impressions Echo 04/18/17 Interpretation Summary There are two mobile echogenicities (consider vegetations) attatched to the atrial side of the RV pacer wire. The left ventricle is borderline dilated. Left ventricular wall thickness is at the upper limits of normal. Left ventricular ejection fraction is estimated to be 40%. There is hypokinesis of the basal to mid septum and basal to mid inferior wall. There is mild to moderate mitral regurgitation. The right ventricular systolic pressure is estimated at 34 mmHg assuming a right atrial pressure of 15 mm Hg. Compared to the prior exam, left ventricular function is slightly decreased. Additional Diagnostics Stress Tests 04/17, 04/18 IMPRESSION: 1. No reversible stress perfusion defects indicative of ischemia. 2. Depressed ejection fraction at 35%. 3. No definitive EKG changes of ischemia. PQRS ATTESTATIONS: Measure 322 - Is this imaging test primarily performed on a low-risk surgery patient for preoperative evaluation within 30 days preceding their low-risk non- cardiac surgery? Low-risk surgery is defined as cardiac or myocardial infarction less than 1%, including (but not limited to) endoscopic procedures, superficial procedures, cataract surgery, and excisional breast surgery: Answer : No Measure 323 - Is this imaging test performed primarily for the monitoring of an asymptomatic patient who had percutaneous coronary intervention on the visit date or within 2 years of the visit date? Answer: No Measure 324 - Is this imaging test performed primarily for the initial detection and risk assessment on an asymptomatic, low coronary heart disease patient? Low CHD risk definition = clinicians should consider the maximum number of available patient factors used to estimate risk based on Coxsackie ( ATP III criteria), typically age, gender, diabetes, smoking status, and use of blood pressure medication, and integrate age appropriate estimates for missing elements, such as LDL or standard blood pressure. Answer: No Dictated by: Gwendolyn Joseph M.D. on 04/18/2017 at 16:31 Approved by: Gwendolyn Joseph M.D. on 04/18/2017 at 16:38 Assessment & Plan Ms. Myers is a 56-year-old female with history of chronic systolic and diastolic heart failure with AICD pacemaker, prior VT, and COPD that presented with left-sided chest pain radiating into her left neck, accompanied by nausea and shortness of breath. 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 Rodríguez. Possible Endocarditis, chronic, present on admission. Ongoing. - Echo revealed vegetations on pacemaker wires - Patient reports history of fatigue, weight loss, fevers/chills for months that are unresponsive to antibiotics - ID consulted, appreciate Dr. Martinez's recommendations: Blood cultures switched to fungal cultures ESR, CRP, ProCalc ordered HIV/Hep C panel ordered Stop vancomycin and azithromycin Consider TAQUERIA for better visualization Chest pain, acute, present on admission. Improving. - Likely unstable angina (EKG showed NSR at 87 with frequent PVC's, no ST changes, negative troponin). - IV heparin, nitro discontinued - Nuc med stress test as above - Echocardiogram as above - Will talk to Cardiology to see if TAQUERIA will provide further characterization of these vegetations MRSA, present on admission. Active. Ongoing. - MRSA contact precautions - Bactriban ointment BID for 10 days total COPD, stable, present on admission. Ongoing. - Patient has productive cough but no consolidations on CXR. - Continue with home inhalers as needed. - Azithromycin discontinued History of mood disorder, present on admission. Stable. - Continue home Venlafaxine. History of benign-appearing pancreatic neoplasm, present on admission - Followed by Damaris Munoz. - CT Abd ordered to reassess mass as she has not seen for monitoring in quite some time Acetaminophen for mild pain, headache, and fever when necessary. Bowel regimen Senna and MiraLAX scheduled as necessary. Zofran when necessary for nausea and vomiting. SubQ heparin for now. SCDs in place. Disposition: Patient will likely be admitted for 1-2 more days depending on the results of her cardiology work up and will be discharged when medically stable. Resuscitation Status: CPR: Attempt Resuscitation Attending Statement The patient was seen and examined together with Dr. Lopes on 04/19/2017 and I agree with the history, exam and plan as outlined in the note above. . Yoni Lopes DO Apr 19, 2017 19:56 Giancarlo Obando MD Apr 22, 2017 08:19
[2017-04-20] VITALS (9 sets, daily range): BP systolic 104–149; BP diastolic 58–85; PULSE 60–73; RESP 16–25; O2SAT 93–99
[2017-04-20] MEDS: 0.9% Sodium Chloride 1,000 ML IV SCH ×2 (04:55→14:22)
--- NOTE | 2017-04-20 05:19 | NUR ---
Pain/POC Pt slept quietly most of this shift, pain acceptable per pt with APAP 325 mg x1. Discussed plan of care with pt and updated whiteboard. Afebrile, no cardiac dysrhythmias this shift. Care continues.
[2017-04-20 06:32] LABS: BASOPHILS % (AUTO) 0.3 % (0-3); EOSINOPHILS % (AUTO) 0.3 % (0-5); MONOCYTES % (AUTO) 7.3 % (4-12); Mean Corpuscular Hemoglobin 26.9 pg (27.0-35.0); Mean Corpuscular Volume 81.8 fL (81-100); NEUTROPHILS % (AUTO) 44.5 % (40-74); Platelet Count 154 bil/L (150-400)
[2017-04-20] MEDS: Venlafaxine XR 37.5 mg ER24 Capsule PO SCH ×2 (08:28→20:44)
[2017-04-20] MEDS: Fluticasone 0.05% 15 Spray/2 Gm 16 Gm Nasal Spray NASAL SCH ×2 (08:28→20:45)
[2017-04-20] MEDS: Mupirocin 2% 22 Gm Ointment TOPICAL SCH ×2 (08:30→20:45)
[2017-04-20] MEDS: Sodium Chloride LOK Flush 10 mL Syringe IVFLUSH SCH ×2 (08:31→17:23)
--- NOTE | 2017-04-20 10:12 | PROG NOTE ---
[address] [address] PROGRESS NOTE PATIENT: KEYANNA MYERS : 1960 MR#: [id number] ADMIT: 04/16/2017 JOB ID: [id number] DATE: 04/20/2017 REASON FOR FOLLOWUP: Possible pacer infection. INTERVAL HISTORY: Overnight, the patient reports some sweats, but no overt fevers or chills. She continues to have vague abdominal pain and a diminished appetite. We again reviewed the salient features of her history including her prolonged cough episodes, as well as prior sweats and profound weight loss by her report over the past three months. No new respiratory or urinary complaints are noted. PHYSICAL EXAMINATION: Reveals an afebrile woman, temperature 37.2. It is notable that she has been afebrile for the last five days here in the hospital. Pulse 60, respiratory rate 18, blood pressure 127/73. She is saturating very well on room air and looks comfortable. Eyes without conjunctival hemorrhages or abnormalities. Oral cavity unremarkable. Lungs fairly clear. Cardiac tones regular rate and rhythm. No murmur appreciated. The pacer is nontender. The abdomen is slightly distended with diffuse mild tenderness when it is palpated, but really no focal rebound or notable abnormalities. No skin rash noted. LABORATORY DATA: Labs include white blood count 2900, platelet count 154,000, creatinine 1.17. LFTs are normal. CRP, we ordered yesterday came back at 0.4. Procalcitonin was basically 0 and sed rate was 29 which suggested for her age and sex is entirely normal. Urinalysis had no white cells and importantly no red cells. HIV and hep C are pending. Blood cultures are negative. These date back to the when she was still receiving antibiotics. Her sputum showed moderate polys, but just grew normal shana. A nasopharyngeal swab for MRSA was positive. IMPRESSION: This is a complex case of a woman who is admitted with shortness of breath and atypical chest pain. During the course of her routine evaluation, clot or vegetation was seen on her pacer wires with a transthoracic echocardiogram. Infections Disease was consulted regarding this issue. Unfortunately, the patient already been receiving antibiotics off and on for three months and including here in the hospital were when she was first admitted, she was given some azithromycin for a possible chronic obstructive pulmonary disease exacerbation. With that said, our cultures from two days ago at least are negative, even though they are taken while she was on azithromycin. Overall, it seems unlikely that she has a pacer infection as she has no fever demonstrated here in several days in the hospital and completely normal sed rate, CRP, and procalcitonin. RECOMMENDATIONS: 1. I would continue to observe the patient off all antibiotics. 2. We await our pending blood cultures. 3. Will continue with nasal Bactroban. 4. We await the HIV and hepatitis C. 5. I think a TAQUERIA may be helpful here and would appreciate cardiology's input as to this question. 6. Will continue to closely follow this interesting patient with you.
[2017-04-20] MEDS ORDERED: HYDROcodone-APAP 5-325 mg Tablet PO PRN (11:30)
[2017-04-20] MEDS: HYDROcodone-APAP 5-325 mg Tablet PO PRN ×3 (14:36→18:35)
--- NOTE | 2017-04-20 14:44 | PCM.CHPCAR ---
Consult Subjective Date of service Apr 20, 2017 Date of admit Apr 16, 2017 at 00:23 Provider Requesting Consult Primary Care Physician Primary Care Physician: Cristobal Berkowitz MD Chief Complaint Pacemaker lead echogenic masses History of Present Illness 56-year-old woman history of heart failure with reduced ejection fraction, AICD placement, pancreatic mass, lupus anticoagulant, hyperlipidemia, and former smoking admitted with shortness of breath. Patient states that she has had gradual worsening of her overall function over the past year or so. She she had a complex pelvic lift surgery last year at [facility] that was followed by a very complicated postoperative course. Since then, she has been on warfarin for her lupus anticoagulant. Patient states that she lives with her family and is able to take care of her ADLs but gets fatigued and short of breath while walking to her mailbox. She also gets intermittent atypical chest pain like what brought her to our ER and today. She denies lightheadedness or syncope. Patient does endorse over 20 pounds of unintentional weight loss over the past few months but denies any changes in her eating habits. Denies fevers, chills, or rigors. Review of Systems Review of Systems Per history of present illness and otherwise unremarkable PMH Past Medical History # HFrEF from nonischemic cardiomyopathy with AICD placement in 2003 and gen change 2009 # Pericardial cyst # Lupus anticoagulant # Pancreatic mass # Hyperlipidemia # Sleep apnea # Former cigarette smoker Scheduled Bisacodyl (Dulcolax) 5 Mg Tablet.dr 5 MG PO DAILY (Reported) Cyanocobalamin (Cyanocobalamin Injection) 1,000 Mcg/1 Ml Vial 1,000 MCG IM Monthly (Reported) Fentanyl 75 mcg/hr Patch (Fentanyl 75 mcg/hr Patch) 1 Each Patch.td72 1 PATCH TRANSDERM Q3D (Reported) Fluticasone Propionate (Flonase Allergy Relief) 50 Mcg/Actuation [place].susp 1 SPRAY NS BID (Reported) Furosemide (Furosemide) 40 Mg Tablet 40 MG PO DAILY (Reported) Lisinopril (Lisinopril) 2.5 Mg Tablet 1.25 MG PO BID (Reported) Lorazepam (Lorazepam) 1 Mg Tablet 1-2 MG PO 4xdaily (Reported) Magnesium Oxide (Magox 400) 400 Mg Tablet 200 MG PO BID (Reported) Mirtazapine (Remeron) 30 Mg Tablet 45 MG PO HS (Reported) Ondansetron (Zofran) 8 Mg Tab 8 MG PO QID (Reported) Polyethylene Glycol 3350 (Miralax) 17 Gm Powd.pack 17 GM PO MORNING Quetiapine Fumarate (Seroquel) 100 Mg Tablet 50 MG PO 0800, 1400 (Reported) Quetiapine Fumarate (Seroquel) 100 Mg Tablet 200 MG PO HS (Reported) Quetiapine Fumarate (Quetiapine Fumarate) 25 Mg Tablet 25 MG PO DAILYWD ( Reported) Sennosides (Senna) 8.6 Mg Tablet 8.6 MG PO DAILY (Reported) Venlafaxine ER (Effexor XR) 37.5 Mg Cap.er.24h 37.5 MG PO BID (Reported) Warfarin Sodium (Warfarin Sodium) 5 Mg Tablet 5 MG PO DAILY EXCEPT TUESDAY ( Reported) Scheduled PRN Albuterol HFA (Proair HFA) 8.5 Gm Hfa.aer.ad 2 PUFFS INHALATION Q4H PRN PRN For Shortness of Breath (Reported) Ipratropium/Albuterol Sulfate (Iprat-Albut 0.5-3(2.5) mg/3 mL Inhalant Soln) 3 Ml Ampul.neb 3 ML IH Q6 PRN PRN For Shortness of Breath (Reported) Discontinued Medications Ipratropium/Albuterol Sulfate (Iprat-Albut 0.5-3(2.5) mg/3 mL Inhalant Soln) 3 Ml Ampul.neb 3 ML IH Q6 (Reported) Pramipexole Dihydrochloride (Mirapex) 0.5 Mg Tablet 0.5 MG PO HS (Reported) Current Inpatient Medications Current Medications Pharmacy Consult 1 ea DAILY XX Last administered on 04/19/17 09:17; Admin Dose 1 EA; Start 04/18/17 at 19:05; Stop 04/19/17 at 15:35; Status DC Fentanyl 1 patch Q3D TOPICAL Last administered on 04/18/17 21:59; Admin Dose 1 PATCH; Start 04/18/17 at 22:00 Enoxaparin Sodium 60 mg Q12H SUBQ Last administered on 04/20/17 05:36; Admin Dose 60 MG; Start 04/19/17 at 18:30 Acetaminophen/ Hydrocodone Bitart 1 tablet Q4 PRN PO Last administered on 7/19/ 17at 11:52; Admin Dose 1 TABLET; Start 04/20/17 at 11:30; Stop 04/20/17 at 14:11 ; Status DC Acetaminophen/ Hydrocodone Bitart prn pain Q4 PRN PO; Start 04/20/17 at 14:10; Status UNV Allergies: Coded Allergies: NSAIDS (Non-Steroidal Anti-Inflamma (Verified Allergy, Severe, 02/07/17) Quinolones (Verified Allergy, Severe, ? AVALOX, 02/07/17) ceftriaxone sodium (Verified Allergy, Severe, 02/07/17) codeine (Verified Allergy, Severe, 02/07/17) ibuprofen (Verified Allergy, Severe, 02/07/17) metoclopramide (Verified Allergy, Severe, 02/07/17) metoclopramide HCl (Verified Allergy, Severe, 02/07/17) moxifloxacin HCl (Verified Allergy, Severe, 02/07/17) naproxen (Verified Allergy, Severe, 02/07/17) prochlorperazine edisylate (Verified Allergy, Severe, 02/07/17) prochlorperazine maleate (Verified Allergy, Severe, 02/07/17) sumatriptan (Verified Allergy, Severe, 02/07/17) sumatriptan succinate (Verified Allergy, Severe, 02/07/17) latex (Verified Allergy, Intermediate, RASH,when latex is on her skin for days, 02/07/17) diphenhydramine (Verified Allergy, Unknown, 02/23/17) levofloxacin (Verified Allergy, Unknown, 02/23/17) Cephalosporins (Verified Adverse Reaction, Severe, N/V, 02/07/17) prednisone (Verified Adverse Reaction, Severe, PSYCHOSIS, 02/07/17) prochlorperazine (Verified Adverse Reaction, Severe, AGITATION, 02/07/17) Uncoded Allergies: ADHESIVE TAPES (Allergy, Unknown, 12/24/14) Adhesive tape (Adverse Reaction, Intermediate, rash, 05/26/15) NSAIDS (Adverse Reaction, Unknown, lupus anticoagulation & bleeding disorder IGA defiency, 12/26/14) Family History Family History Patient mother had heart disease and cardiomyopathy that required AICD as well. Patient's mother her 70s. Social History Hx Alcohol Use: NoHx Substance Use: Yes (marijuana)Hx Tobacco Use: No (quit a year ago) Smoking Status: Former Smoker Living Arrangement: with Family Exam Vital Signs Vital Sign - Last Date Time Temp Pulse Resp B/P Pulse Ox O2 Delivery O2 Flow Rate FiO2 04/20/17 11:34 37.0 63 18 145/83 98 Room Air 04/17/17 01:03 1.00 Intake and Output 04/19/17 04/19/17 04/20/17 Cumulative From/Thru 15:00 23:00 07:00 04/15/17 16:16 - 04/20/17 05:27 Intake Total 500 ml 1010 ml 120 ml 7006 ml Output Total 750 ml 400 ml 4600 ml Balance 500 ml 260 ml -280 ml 2406 ml Intake Oral 500 ml 700 ml 120 ml 4216 ml IV Total 310 ml 2790 ml Output Urine Total 750 ml 400 ml 4600 ml # Voids 1 2 Objective General appearance: Mildly moaning in chest pain, well-nourished, pleasant, cooperative HEET: Normocephalic atraumatic, no scleral icterus, tongue midline, mucous membranes moist Neck: supple Cardiovascular: RRR, normal S1 and normal S2, 2/6 systolic murmur, no rubs/ gallops, PMI nondisplaced, no JVD, no peripheral edema Respiratory: Good aeration, CTAB Abdomen: Soft, nontender, nondistended, + bowel sounds Neuro: Alert, no facial droop, tongue midline, no gross motor deficits Psych: appropriate affect Skin: no rashes on face, neck, and lower extremities Lab and Diagnostics Labs Pro-calcitonin 0.02 Result Diagram: 04/20/17 0600 04/20/17 0600 X-Rays, CTs and MRIs Echo 04/18/2017: Borderline dilated left ventricle with EF about 40%, 2 echongenic massess on the atrial side of the pacemaker leads that could be vegetation or thrombus, RVSP estimated at 34 mmHg Pharmaceutical nuclear stress 04/18/2017: Mild small fixed perfusion defect at the apex with no reversible ischemia, LVEF 35%. 12-lead ECG EKG 04/15/2017: Sinus rhythm with frequent PVCs. Assessment & Plan Assessment 56-year-old woman history of heart failure with reduced ejection fraction, AICD placement, pancreatic mass, lupus anticoagulant, hyperlipidemia, and former smoking admitted with shortness of breath: # Pacemaker lead masses: Based on my echocardiogram review, it is unclear to me whether these pacemaker lead masses on the atrial side arm thrombus or vegetation. Patient's clinical presentation does not support endocarditis given absence of fevers, chills, and leukocytosis. Furthermore, the pro calcitonin is low to suggest acute infection. Given patient has lupus anticoagulant and has had labile INRs while being on warfarin, thrombus appears more plausible. Patient did get blood cultures drawn yesterday but she has been off and on antibiotics for the past few months. I agree with stopping all antibiotics and then repeating blood cultures again. Plan: - Continue therapeutic anticoagulation. Consider restarting warfarin with goal INR 2-3 but bridge with Lovenox or heparin when INR less than 2 - No need for transesophageal echocardiogram for now as it would not practice management consultant at this time - Agree with no antibiotics at this time and following up on blood and fungal cultures - Appreciate infectious disease consult recommendations # HFrEF (chronic systolic heart failure) from nonischemic cardiomyopathy with AICD placement in 2003 and gen change 2009: Patient appears euvolemic on exam and is NYHA class III, ACC stage C. Timothy is below: - Consider switching from metoprolol tartrate 12.5 mg by mouth twice a day to metoprolol succinate 25 mg daily - Consider up titrating lisinopril 1.25 mg by mouth twice a day as blood pressure allows. # Pericardial cyst: Stable per outside records. # Lupus anticoagulant: Continue therapeutic anticoagulation # Pancreatic mass: Will defer pancreatic mass evaluation to primary team. The concern is that this is malignancy. # Hyperlipidemia: Consider starting statin # Former cigarette smoker: Congratulated on successful smoking cessation. Thank you for the interesting consultation. Cardiology will sign off at this time but feel free to call us if there are more questions. Pain Evaluation: Adequate Pain Control Resuscitation Status: CPR: Attempt Resuscitation Ashley Ugarte MD Apr 20, 2017 14:44
[2017-04-20] MEDS: LORazepam 1 mg Tablet PO PRN (15:19)
--- NOTE | 2017-04-20 16:17 | PCM.PNMED ---
Subjective Date of Service Apr 20, 2017 Subjective Overnight there were no acute events. Ms. Myers is anxious about the plan for today but otherwise has no complaints at this time. She denies any increasing chest pain, palpitations, shortness of breath, headache, nausea/vomiting, fever or chills. Exam Vital Signs Vital Sign - Last Date Time Temp Pulse Resp B/P Pulse Ox O2 Delivery O2 Flow Rate FiO2 04/20/17 16:00 37.5 73 16 147/85 93 04/20/17 11:34 Room Air 04/17/17 01:03 1.00 Intake and Output 04/19/17 04/19/17 04/20/17 Cumulative From/Thru 15:00 23:00 07:00 04/15/17 16:16 - 04/20/17 05:27 Intake Total 500 ml 1010 ml 120 ml 7006 ml Output Total 750 ml 400 ml 4600 ml Balance 500 ml 260 ml -280 ml 2406 ml Intake Oral 500 ml 700 ml 120 ml 4216 ml IV Total 310 ml 2790 ml Output Urine Total 750 ml 400 ml 4600 ml # Voids 1 2 Exam General: Age-appropriate female laying in bed watching TV in NAD. HEENT: NCAT. PERRLA, EOMI. Membranes pink and moist. Multiple broken teeth without signs of overt infection. Neck: Supple, nontender. No JVD, thyromegaly. CV: RRR, no murmurs/rubs/gallops. Pulm: Coarse breath sounds bilaterally but no wheezing/rales/rhonchi. Productive cough. Abd: Soft, nontender nondistended. Bowel sounds present. Extremities: Trace edema around the ankles bilaterally, no cyanosis/clubbing. Neuro: A&Ox3. CN 2-12 intact, muscle strength greater on left than right upper and lower extremities. Psych: Anxious this morning. IVs and Medications Medications Reviewed: Medications were reviewed in detail Lab and Diagnostics Result Diagram: 04/20/17 0600 04/20/17 0600 X-Rays, CTs and MRIs Brain CTA 04/17/17 IMPRESSION: 1. No acute intracranial process. 2. No areas of hemodynamically significant stenosis, vascular occlusion or aneurysmal dilation within the anterior circulation. 3. No areas of hemodynamically significant stenosis, vascular occlusion or aneurysmal dilation within the posterior circulation. 4. No areas of hemodynamically significant stenosis, vascular occlusion or aneurysmal dilation within the neck vasculature. Dictated by: Gwendolyn Joseph M.D. on 04/17/2017 at 13:43 Approved by: Gwendolyn Joseph M.D. on 04/17/2017 at 13:47 Patient Name: KEYANNA MYERS MR#: [id number] Location: [facility] [place] Ordering Phys: JOSE QUIGLEY MD Date of Service: 04/15/17 1622 PROCEDURE: X-RAY CHEST, TWO VIEWS ([id number]) IMPRESSION: No acute pulmonary process. Dictated by: Gwendolyn Joseph M.D. on 04/15/2017 at 18:31 Approved by: Gwendolyn Joseph M.D. on 04/15/2017 at 18:32 Cardiac Echo Impressions Echo 04/18/17 Interpretation Summary There are two mobile echogenicities (consider vegetations) attatched to the atrial side of the RV pacer wire. The left ventricle is borderline dilated. Left ventricular wall thickness is at the upper limits of normal. Left ventricular ejection fraction is estimated to be 40%. There is hypokinesis of the basal to mid septum and basal to mid inferior wall. There is mild to moderate mitral regurgitation. The right ventricular systolic pressure is estimated at 34 mmHg assuming a right atrial pressure of 15 mm Hg. Compared to the prior exam, left ventricular function is slightly decreased. Additional Diagnostics Stress Tests 04/17, 04/18 IMPRESSION: 1. No reversible stress perfusion defects indicative of ischemia. 2. Depressed ejection fraction at 35%. 3. No definitive EKG changes of ischemia. PQRS ATTESTATIONS: Measure 322 - Is this imaging test primarily performed on a low-risk surgery patient for preoperative evaluation within 30 days preceding their low-risk non- cardiac surgery? Low-risk surgery is defined as cardiac or myocardial infarction less than 1%, including (but not limited to) endoscopic procedures, superficial procedures, cataract surgery, and excisional breast surgery: Answer : No Measure 323 - Is this imaging test performed primarily for the monitoring of an asymptomatic patient who had percutaneous coronary intervention on the visit date or within 2 years of the visit date? Answer: No Measure 324 - Is this imaging test performed primarily for the initial detection and risk assessment on an asymptomatic, low coronary heart disease patient? Low CHD risk definition = clinicians should consider the maximum number of available patient factors used to estimate risk based on [place] ( ATP III criteria), typically age, gender, diabetes, smoking status, and use of blood pressure medication, and integrate age appropriate estimates for missing elements, such as LDL or standard blood pressure. Answer: No Dictated by: Gwendolyn Joseph M.D. on 04/18/2017 at 16:31 Approved by: Gwendolyn Joseph M.D. on 04/18/2017 at 16:38 Assessment & Plan Ms. Myers is a 56-year-old female with history of chronic systolic and diastolic heart failure with AICD pacemaker, prior ID, and COPD that presented with left-sided chest pain radiating into her left neck, accompanied by nausea and shortness of breath. 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 Rodríguez. Chest pain, acute, present on admission. Improving. - Possible unstable angina (EKG showed NSR at 87 with frequent PVC's, no ST changes, negative troponin). - Stress tests as above - Echocardiogram as above - Case discussed with Dr. Ugarte of Cardiology with the following recommendations: No TAQUERIA at this time as it will not provide more information or change treatment Metoprolol tartrate changed to succinate 25mg PO daily Titrate Lisinopril up if necessary for her blood pressure MRSA, present on admission. Active. - MRSA positive nasal swab - Continue Bactriban ointment BID for 10 days (stop 04/26) COPD, stable, present on admission. Ongoing. - Patient has productive cough but no consolidations on CXR - Patient continues to be stable off oxygen - Continue with home inhalers as needed History of mood disorder, present on admission. Stable. - Continue home Venlafaxine. History of benign-appearing pancreatic neoplasm, present on admission - Followed by Damaris Munoz - CT with contrast ABD/Pelv ordered for 04/20 to evaluate progression - Consider contacting Dr. Rodríguez depending on the results of the above CT scan Acetaminophen for mild pain, headache, and fever when necessary. Bowel regimen Senna and MiraLAX scheduled as necessary. Zofran when necessary for nausea and vomiting. SubQ heparin for now. SCDs in place. Disposition: Patient will likely be admitted for the next couple days as we continue with her complex medical work up and formulate an ongoing treatment plan. Resuscitation Status: CPR: Attempt Resuscitation Attending Statement The patient was seen and examined together with Dr. Lopes on 04/20/2017 and I agree with the history, exam and plan as outlined in the note above. . Yoni Lopes DO Apr 20, 2017 16:17 Giancarlo Obando MD Apr 22, 2017 08:22
--- NOTE | 2017-04-20 17:03 | NUR ---
Social Work : Multidisciplinary Rounds/Cont.D/C Planning Data& Assessment: Pt was discussed in AM rounds today, pt has endocarditis. SW met with pt at bedside to provide executive vice president and chief financial officer application and [employer] information for secondary insurance. Pt denies any other needs at this time. SW to continue to follow for IV ABX needs if appropriate. Plan: Anticipate discharge home when medically ready. SW to continue to follow for IV ABX needs if appropriate. SW to continue to follow. DARLYN Whitten
[2017-04-20] MEDS: MeTOProlol XL 25 mg ER24 Tablet PO SCH (17:23)
--- NOTE | 2017-04-20 19:06 | DRSVH ---
PROCEDURE: CT ABDOMEN AND PELVIS WITH CONTRAST ([id number]) INDICATIONS: pancreatic mass, wt loss, b symptoms TECHNIQUE: After the administration of oral and intravenous contrast, 5 mm thick sections acquired from the diap hragms to the symphysis. 5 mm thick coronal and sagittal reformats were performed. For radiation do se reduction, the following was used: automated exposure control, adjustment of mA and/or kV accordi ng to patient size. COMPARISON: [facility], CT, CT ABD PELVIS W CON, 10/07/2015, 18:09. [facility], CT, CT ABD PELVIS W CON, 05/25/2016, 13:50. FINDINGS: Image quality: Good ABDOMEN: Lung bases: There is a small left and effusion and possible small lung infiltrates/pneumonias are simin pected at the lung bases. Heart size is normal. Pacemaker wires are seen in the heart. Small hiatal hernia and probable small upper phrenic diverticulum a gastric diverticulum. Solid organs: Liver is normal in size and enhancement. The spleen is mildly enlarged measuring 15.2 cm in greatest dimension.. Gallbladder has been removed.. Biliary system is non-dilated. Pancreas enhances normally. A hypoattenuating lesion in the body somewhat linear and of duct density remains u nchanged. No enhancing component is seen. No adrenal nodules. Kidneys are normal in size and enhanc ement, without hydronephrosis. Peritoneum and bowel: Stomach, small bowel, and colon loops are normal in caliber and wall thickness . No free fluid or air. There is a normal appendix. Nodes and vessels: No retroperitoneal or mesenteric adenopathy. Aorta and inferior vena cava are no rmal in caliber. Miscellaneous: No ventral hernias. PELVIS: Genitourinary: Bladder wall thickness is normal. Miscellaneous: No inguinal hernias or adenopathy. Bones: No suspicious bony lesions. No vertebral body compression fractures. IMPRESSION: 1. Elongated area of decreased attenuation in the body of the pancreas which appears to connect to th e pancreatic duct is unchanged over the past 1.5 years. No enhancing component is seen. No inflammati on is seen. 2. Previous cholecystectomy. 3. Probable bilateral patchy pneumonias with small effusions at the lung bases. Dictated by: Elian Bird M.D. on 04/20/2017 at 18:53 Approved by: Elian Bird M.D. on 04/20/2017 at 19:04
[2017-04-21] VITALS (7 sets, daily range): BP systolic 125–162; BP diastolic 73–88; PULSE 60–79; RESP 14–20; O2SAT 96–98
[2017-04-21] MEDS: 0.9% Sodium Chloride 1,000 ML IV SCH ×3 (00:22→20:22)
[2017-04-21] MEDS: Sodium Chloride LOK Flush 10 mL Syringe IVFLUSH SCH ×4 (01:14→23:33)
[2017-04-21 05:30] LABS: BASOPHILS % (AUTO) 0.3 % (0-3); EOSINOPHILS % (AUTO) 0 % (0-5); MONOCYTES % (AUTO) 13.5 % (4-12); Mean Corpuscular Hemoglobin 27.7 pg (27.0-35.0); Mean Corpuscular Volume 81.6 fL (81-100); NEUTROPHILS % (AUTO) 53.5 % (40-74); Platelet Count 143 bil/L (150-400)
[2017-04-21] MEDS: HYDROcodone-APAP 5-325 mg Tablet PO PRN ×3 (06:02→17:16)
--- NOTE | 2017-04-21 06:07 | NUR ---
Pain/Cardiac Pt c/0 10/10 chest pain this shift, no tele changes, VSS, nitro given x3 with minimal effect, 6 mg MS given and pain reduced to 5/10 which was tolerable. Pt slept off and on after that point. At 0600 c/o chest pain again, no tele changes, VSS with exception of T 37.7, provider notified and 2 tabs norco given. Care continues.
--- NOTE | 2017-04-21 11:13 | PROG NOTE ---
[address] [address] PROGRESS NOTE PATIENT: KEYANNA MYERS : 1960 MR#: [id number] ADMIT: 04/16/2017 JOB ID: [id number] DATE: 04/21/2017 INFECTIOUS DISEASE FOLLOWUP NOTE: REASON FOR FOLLOWUP: Vegetations or clots seen on pacer wire. INTERVAL HISTORY: Overnight the patient has had a wide variety of complaints including subjective fevers, chills, and drenching sweats. These have been relatively chronic complaints over the past couple of months for which she has received numerous courses of antibiotics without sustained improvement. She also notes she has a cough which is intermittently productive, a headache, malaise, subjective shortness of breath, nausea, occasional vomiting, and chest pain. These complaints have been relatively constant since her admission. PHYSICAL EXAMINATION: Reveals a woman who looks quite comfortable. Her temperature now is 37.7, and that is actually the highest temperature of this hospital admission, which is now in its seventh day. Her pulse is 72, respiratory rate 14, blood pressure 138/77. She is saturating well on room air and in spite of many complaints appears comfortable. She is alert, lucid, and able to give a good history. Eyes without conjunctivitis. Oral cavity without pharyngitis. Her lungs are relatively clear, a few crackles perhaps at the bases but not impressive in any way. Cardiac tones regular rate and rhythm without murmur. The pacer is in the left upper chest. It is completely nontender, including the lead, which can be easily palpated up into the neck. Abdomen: Some subjective tenderness, but no focal masses or rigidity. She also notes that she is not making any urine but she does not have suprapubic fullness and I have asked the nurses to do a bladder scan. No new skin rash. LABORATORIES: Include white count of 3900, stable. Basically normal diff. Platelet count slightly low at 143. Creatinine 1.21, relatively stable. LFTs are normal. Procalcitonin 0.02 two days ago. CRP and sed rate were also normal. Hep C is negative. HIV pending. Blood cultures all negative. Nasal MRSA screen was positive and she is receiving Bactroban. We reviewed the abdominal CT scan yesterday. There is some patchy infiltrate left greater than right base which I suspect represents atelectasis, though it could be pneumonia. She also has a pancreatic abnormality which is unchanged in 1.5 years of radiographic follow up. IMPRESSION: This is a difficult case of a woman with the pacer who is been reporting subjective fevers, chills, and sweats for two or three months in association with a cough. She has received courses of Augmentin and azithromycin for this without much improvement. She was admitted this time because of chest pain and as part of that workup an echo was done which as an incidental finding showed what appeared to be vegetations or clot on a pacer wire. We been asked to give an opinion as to whether or not we think she has a pacer infection. Based on negative blood cultures, normal white count, absence of fever greater than 38 degrees, and normal CRP, sed rate, and procalcitonin, I think that she does not have an ongoing infection. We have stopped the azithromycin that was once again restarted because of respiratory complaints so we can get some antibiotic-free blood cultures, but once we have available already, which were done while she was on azithromycin, are negative. RECOMMENDATIONS: 1. No antibiotics at this time. 2. Will repeat a procalcitonin today. If this procalcitonin is also less than 0.1 I think it will be strong evidence against either pneumonia or a pacer infection. 3. Will continue to follow with you. 4. This case discussed in detail this morning with Dr. Ugarte. 5. The patient could be moved off telemetry and to a medical [facility] as I see no indication for her to remain in the [facility] and this was discussed with Dr. Obando.
[2017-04-21] MEDS: MeTOProlol XL 25 mg ER24 Tablet PO SCH (12:23)
[2017-04-21] MEDS: Venlafaxine XR 37.5 mg ER24 Capsule PO SCH ×2 (12:23→21:21)
[2017-04-21] MEDS: Mupirocin 2% 22 Gm Ointment TOPICAL SCH ×2 (12:24→21:22)
[2017-04-21] MEDS: LORazepam 1 mg Tablet PO PRN ×2 (12:24→21:36)
[2017-04-21] MEDS: Fluticasone 0.05% 15 Spray/2 Gm 16 Gm Nasal Spray NASAL SCH ×2 (12:25→21:23)
--- NOTE | 2017-04-21 14:19 | PCM.PNMED ---
Subjective Date of Service Apr 21, 2017 Subjective Overnight there were no acute events. Ms. Myers reports sweats and fever overnight but that the chest pain and headache she experienced has subsided. She denies any palpitations, nausea/ vomiting, diarrhea, increasing chest pain. Exam Vital Signs Vital Sign - Last Date Time Temp Pulse Resp B/P Pulse Ox O2 Delivery O2 Flow Rate FiO2 04/21/17 12:14 37.5 64 18 159/88 98 Room Air 04/17/17 01:03 1.00 Intake and Output 04/20/17 04/20/17 04/21/17 Cumulative From/Thru 15:00 23:00 07:00 04/15/17 16:16 - 04/21/17 05:41 Intake Total 440 ml 7446 ml Output Total 0 ml 4600 ml Balance 440 ml 2846 ml Intake Oral 440 ml 4656 ml IV Total 2790 ml Output Urine Total 0 ml 4600 ml # Voids 2 # Bowel Movements 0 0 Exam General: Age-appropriate female laying in bed watching TV in [facility]. HEENT: NCAT. PERRLA, EOMI. Membranes pink and moist. Multiple broken teeth without signs of overt infection. Neck: Supple, nontender. No JVD, thyromegaly. CV: RRR, no murmurs/rubs/gallops. Pulm: Coarse breath sounds bilaterally but no wheezing/rales/rhonchi. Productive cough. Abd: Soft, nontender nondistended. Bowel sounds present. Extremities: No cyanosis, clubbing, edema. Neuro: A&Ox3. CN 2-12 intact, muscle strength greater on left than right upper and lower extremities. Psych: Normal mood and affect. IVs and Medications Medications Reviewed: Medications were reviewed in detail Lab and Diagnostics Result Diagram: 04/21/17 0500 04/21/17 0500 X-Rays, CTs and MRIs Brain CTA 04/17/17 IMPRESSION: 1. No acute intracranial process. 2. No areas of hemodynamically significant stenosis, vascular occlusion or aneurysmal dilation within the anterior circulation. 3. No areas of hemodynamically significant stenosis, vascular occlusion or aneurysmal dilation within the posterior circulation. 4. No areas of hemodynamically significant stenosis, vascular occlusion or aneurysmal dilation within the neck vasculature. Dictated by: Gwendolyn Joseph M.D. on 04/17/2017 at 13:43 Approved by: Gwendolyn Joseph M.D. on 04/17/2017 at 13:47 Patient Name: KEYANNA MYERS MR#: [id number] Location: [facility] [place] Ordering Phys: JOSE QUIGLEY MD Date of Service: 04/15/17 162 PROCEDURE: X-RAY CHEST, TWO VIEWS ([id number]) IMPRESSION: No acute pulmonary process. Dictated by: Gwendolyn Joseph M.D. on 04/15/2017 at 18:31 Approved by: Gwendolyn Joseph M.D. on 04/15/2017 at 18:32 Cardiac Echo Impressions Echo 04/18/17 Interpretation Summary There are two mobile echogenicities (consider vegetations) attatched to the atrial side of the RV pacer wire. The left ventricle is borderline dilated. Left ventricular wall thickness is at the upper limits of normal. Left ventricular ejection fraction is estimated to be 40%. There is hypokinesis of the basal to mid septum and basal to mid inferior wall. There is mild to moderate mitral regurgitation. The right ventricular systolic pressure is estimated at 34 mmHg assuming a right atrial pressure of 15 mm Hg. Compared to the prior exam, left ventricular function is slightly decreased. Additional Diagnostics Stress Tests 04/17, 04/18 IMPRESSION: 1. No reversible stress perfusion defects indicative of ischemia. 2. Depressed ejection fraction at 35%. 3. No definitive EKG changes of ischemia. PQRS ATTESTATIONS: Measure 322 - Is this imaging test primarily performed on a low-risk surgery patient for preoperative evaluation within 30 days preceding their low-risk non- cardiac surgery? Low-risk surgery is defined as cardiac or myocardial infarction less than 1%, including (but not limited to) endoscopic procedures, superficial procedures, cataract surgery, and excisional breast surgery: Answer : No Measure 323 - Is this imaging test performed primarily for the monitoring of an asymptomatic patient who had percutaneous coronary intervention on the visit date or within 2 years of the visit date? Answer: No Measure 324 - Is this imaging test performed primarily for the initial detection and risk assessment on an asymptomatic, low coronary heart disease patient? Low CHD risk definition = clinicians should consider the maximum number of available patient factors used to estimate risk based on [place] ( ATP III criteria), typically age, gender, diabetes, smoking status, and use of blood pressure medication, and integrate age appropriate estimates for missing elements, such as LDL or standard blood pressure. Answer: No Dictated by: Gwendolyn Joseph M.D. on 04/18/2017 at 16:31 Approved by: Gwendolyn Joseph M.D. on 04/18/2017 at 16:38 Assessment & Plan Ms. Myers is a 56-year-old female with history of chronic systolic and diastolic heart failure with AICD pacemaker, prior NH, and COPD that presented with left-sided chest pain radiating into her left neck, accompanied by nausea and shortness of breath. 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 Rodríguez. Pacemaker Lead Vegetation, present on admission, chronic. Ongoing. - Echo revealed vegetation on pacemaker lead - Differential includes infection (endocarditis) vs. hypercoaguable state ( Lupus anticoagulant) vs. benign vegetations due to pancreatic mass - CT as above; pancreatic mass continues to be stable - Patient was on multiple antibiotics prior to admission, received Azithromycin for her COPD exacerbation while admitted - ID consulted, appreciate Dr. Martinez's recommendations: Discontinue antibiotics and watch patient response, repeat blood cultures after antibiotics wash out of her system Repeat Procalcitonin Chest pain, acute, present on admission. Improving. - Possible unstable angina (EKG showed NSR at 87 with frequent PVC's, no ST changes, negative troponin). - Stress tests as above - Echo as above - Continue Metoprolol Tartrate 25mg PO daily - Titrated Lisinopril up to 2.5 mg BID per Cardiology (Dr. Ugarte); consider increasing more if BP uncontrolled MRSA, present on admission. Active. - MRSA positive nasal swab - Continue Bactriban ointment BID for 10 days (stop 04/26) COPD exacerbation, present on admission. Resolved. - Patient has productive cough but no consolidations on CXR; maintaining saturations without oxygen - Continue with home inhalers as needed History of mood disorder, present on admission. Stable. - Continue home Venlafaxine. History of benign-appearing pancreatic neoplasm, present on admission - Followed by Damaris Munoz - Ct as above; no progression or concern for malignancy at this time Acetaminophen for mild pain, headache, and fever when necessary. Bowel regimen Senna and MiraLAX scheduled as necessary. Zofran when necessary for nausea and vomiting. SubQ heparin for now. SCDs in place. Disposition: Patient will likely be admitted for the next couple days as we continue with her complex medical work up and formulate an ongoing treatment plan. Resuscitation Status: CPR: Attempt Resuscitation Attending Statement The patient was seen and examined together with Dr. Lopes on 04/21/2017 and I agree with the history, exam and plan as outlined in the note above. . Yoni Lopes DO Apr 21, 2017 14:19 Giancarlo Obando MD Apr 22, 2017 08:23
--- NOTE | 2017-04-21 14:22 | NUR ---
Evaluation completed. Please go to "Notes" then click on "Assessments and Notes" (bottom left corner of screen). Then select appropriate discipline tab on top of screen.
--- NOTE | 2017-04-21 16:09 | NUR ---
Social Work: Multidisciplinary Rounds Pt discussed in am rounds; sw status remains unchanged. Anticipate discharge home when medically stable. 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
--- NOTE | 2017-04-21 16:30 | NUR ---
Transfer of patient Patient transferred to [facility] room 1010 per MD's order. Report given to [facility] RN. Patient instructed on transfer procedure. Patient verbalized understanding. Pt transferred via wheelchair with personal belongings. Patient tolerated transfer well.
--- NOTE | 2017-04-21 17:51 | NUR ---
Transfer Pt received from [facility] at 1605, report from NIC Frost. Pt arrived in w/c and was able to transfer self to bed. Pt on precautions for MRSA in nars. Pain and anxiety are controlled at this time. Pt oriented to room, call light and visiting hours, she is requesting to only have sons visit and sign put up on door and [facility] notified. A&O x 3, IGNACIO NAVA. Bed in low, call light in reach, continue q1 hour rounding. Addendum: 04/21/17 at 1755 by KEYANNA SPAIN RN BP elevated, aden schaefer MD. Per [facility] RN BP medications given late.
[2017-04-21] MEDS: Polyethylene Glycol (PEG) 17 Gm Powder PO PRN (18:18)
[2017-04-21] MEDS: Senna-Docusate 8.6-50 mg Tablet PO PRN (21:21)
[2017-04-21] MEDS ORDERED: hydrOXYzine Pamoate 25 mg Capsule PO ONE (23:55)
--- NOTE | 2017-04-22 02:09 | NUR ---
RLS Patient c/o RLS episode around 0000. States she usually takes Vistaril at home for it. FYI page sent to Dr. Hines. One time order for Vistaril 25mg PO received & given with effective results. Noted to be resting with eyes closed upon reassessment.
[2017-04-22] MEDS: 0.9% Sodium Chloride 1,000 ML IV SCH ×2 (05:50→11:15)
[2017-04-22 05:52] LABS: BASOPHILS % (AUTO) 0.3 % (0-3); EOSINOPHILS % (AUTO) 0 % (0-5); MONOCYTES % (AUTO) 10.9 % (4-12); Mean Corpuscular Hemoglobin 27.2 pg (27.0-35.0); Mean Corpuscular Volume 82.4 fL (81-100); NEUTROPHILS % (AUTO) 41.2 % (40-74); Platelet Count 133 bil/L (150-400)
[2017-04-22 06:40] VITALS: BP 136/76; PULSE 61; RESP 16; O2SAT 96
[2017-04-22 08:27] VITALS: BP 146/79; PULSE 68; RESP 16; O2SAT 96
[2017-04-22] MEDS: Sodium Chloride LOK Flush 10 mL Syringe IVFLUSH SCH ×3 (08:27→22:27)
[2017-04-22] MEDS: MeTOProlol XL 25 mg ER24 Tablet PO SCH (08:28)
[2017-04-22] MEDS: Fluticasone 0.05% 15 Spray/2 Gm 16 Gm Nasal Spray NASAL SCH ×2 (08:28→20:44)
[2017-04-22] MEDS: Mupirocin 2% 22 Gm Ointment TOPICAL SCH ×2 (08:29→20:44)
[2017-04-22] MEDS: Venlafaxine XR 37.5 mg ER24 Capsule PO SCH ×2 (08:31→20:44)
[2017-04-22] MEDS: Senna-Docusate 8.6-50 mg Tablet PO PRN (08:32)
[2017-04-22] MEDS ORDERED: Senna-Docusate 8.6-50 mg Tablet PO ONE (08:55)
[2017-04-22] MEDS: Polyethylene Glycol (PEG) 17 Gm Powder PO PRN (10:29)
[2017-04-22] MEDS: LORazepam 1 mg Tablet PO PRN ×3 (12:06→22:31)
[2017-04-22 12:20] VITALS: BP 134/71; PULSE 63; RESP 18; O2SAT 96
--- NOTE | 2017-04-22 12:27 | PROG NOTE ---
[address] [address] PROGRESS NOTE PATIENT: KEYANNA MYERS : 1960 MR#: [id number] ADMIT: 04/16/2017 JOB ID: [id number] DATE: 04/22/2017 INFECTIOUS DISEASE FOLLOWUP NOTE: REASON FOR FOLLOWUP: Vegetations and/or clot seen on pacer wires. INTERVAL HISTORY: Overnight the patient has felt fairly well. She has had no fevers, chills, or sweats. She is getting up and walking around the room a bit more. She does note she has a cough which is intermittently productive but otherwise no focal or new complaints. PHYSICAL EXAMINATION: Reveals a woman who is completely afebrile through the last 24 hours, temperature right now 36.3. Her highest temperature during this whole admission was 37.7 early yesterday morning and shows she has never had a temperature of 37.8 or greater at any point during a full week here in the hospital. The patient's pulse is 68, respiratory rate 16, blood pressure 148/79, saturating well on room air, and in no acute distress. Examination of the lungs reveals them to be relatively clear. Cardiac tones without new murmur. Pacer nontender. No skin rash noted. LABORATORIES: Include white count 3100, platelet count 133,000. Sed rate was normal at 29. Creatinine 1.17. Albumin 3.3. CRP was negative at 0.4. Procalcitonin has been done three times; they are all 0.12 or less. Urinalysis without white cells. Hep C is negative. HIV still pending for some reason. Blood cultures are negative. Sputum with moderate polys and some mixed shana, nothing else. MRSA screen was positive and was done from the nares. IMAGING: No additional imaging is available. IMPRESSION: This is a complex case of a woman with longstanding pacer who has been having some subjective fevers, chills, and sweats, which have gone on apparently for months. She has received many outpatient antibiotics without improvement for possible bronchitis. She was admitted because of chest pain and has an incidental finding of vegetation or clot seen on a pacer wire on a transthoracic echo. At this point I see no evidence for infection. We have multiple negative blood cultures, normal white blood count, and absence of any fever whatsoever, with normal CRP and sed rate. The patient has now been off antibiotics for several days, though of course one of the antibiotics she had been receiving until very recently was azithromycin which has an notoriously long half-life. RECOMMENDATIONS: 1. No antibiotics. 2. This patient has been discussed with the team, as well as with cardiology, and I do not think at this point that infection is likely. Efforts should be made to treat what is probably a clot on the pacer wire rather than an infection. 3. ID will go ahead and sign off at this time as I think there are no active ID issues. I would be inclined to get two sets of blood cultures just prior to discharge on this patient. The goal would be to keep her off antibiotics as long as possible before obtaining those two cultures and then of course if those blood cultures should die turner to be positive we need to reevaluate our conclusion that she did not have a pacer infection, but at this point I find that extremely unlikely. Infectious Disease will be signing off, but thank you very much.
[2017-04-22 14:05] LABS: INR 1.07 ratio
--- NOTE | 2017-04-22 15:08 | PCM.PHAPRO ---
Progress Date of Service: Apr 22, 2017 Pacemaker lead echogenic masses Warfarin Management Per Pharmacy: Indication: DVT prophylaxis as is positive for lupus anticoagulant Goal INR: 2-3 Home Dose: Warfarin 5 mg daily except for Tuesdays Labs: Hgb/Hct: 10.5/31.8 Plt: 133 Drug Interactions: Remeron, Effexor, Seroquel (home medications) No signs/symptoms of bleeding noted per MD note Recommendation: Warfarin 7.5 mg x one today at 1700 (slightly above home dose as patient has not received and INR is 1.07) INR: Ordered daily w/ AM labs Pharmacy to continue to monitor and adjust dose as needed. Thank You, Valarie Ortiz, Pharm D. Valarie Ortiz Apr 22, 2017 15:08
--- NOTE | 2017-04-22 15:43 | PCM.PNMED ---
Subjective Date of Service Apr 22, 2017 Subjective Patient is lying in bed. No overnight events. Exam Vital Signs Vital Sign - Last Date Time Temp Pulse Resp B/P Pulse Ox O2 Delivery O2 Flow Rate FiO2 04/22/17 12:44 Room Air 04/22/17 12:20 36.8 63 18 134/71 96 04/17/17 01:03 1.00 Intake and Output 04/21/17 04/21/17 04/22/17 Cumulative From/Thru 15:00 23:00 07:00 04/15/17 16:16 - 04/22/17 06:39 Intake Total 400 ml 1265 ml 9111 ml Output Total 600 ml 1250 ml 6450 ml Balance -200 ml 15 ml 2661 ml Intake Oral 400 ml 1265 ml 6321 ml IV Total 2790 ml Output Urine Total 600 ml 1250 ml 6450 ml # Voids 0 2 # Bowel Movements 0 0 Exam General: Age-appropriate female laying in bed watching TV in NAD. HEENT: NCAT. PERRLA, EOMI. Membranes pink and moist. Multiple broken teeth without signs of overt infection. Neck: Supple, nontender. No JVD, thyromegaly. CV: RRR, positive systolic murmur Pulm: Coarse breath sounds bilaterally but no wheezing/rales/rhonchi. Abd: Soft, nontender nondistended. Bowel sounds present. Extremities: No cyanosis, clubbing, edema. Neuro: A&Ox3. CN 2-12 intact, muscle strength greater on left than right upper and lower extremities. Psych: Normal mood and affect. IVs and Medications Medications Reviewed: Medications were reviewed in detail Lab and Diagnostics Result Diagram: 04/22/1729 04/22/1729 X-Rays, CTs and MRIs Brain CTA 04/17/17 IMPRESSION: 1. No acute intracranial process. 2. No areas of hemodynamically significant stenosis, vascular occlusion or aneurysmal dilation within the anterior circulation. 3. No areas of hemodynamically significant stenosis, vascular occlusion or aneurysmal dilation within the posterior circulation. 4. No areas of hemodynamically significant stenosis, vascular occlusion or aneurysmal dilation within the neck vasculature. Dictated by: Gwendolyn Joseph M.D. on 04/17/2017 at 13:43 Approved by: Gwendolyn Joseph M.D. on 04/17/2017 at 13:47 Patient Name: KEYANNA MYERS MR#: [id number] [place] [facility] [place] Phys: JOSE QUIGLEY MD Date of Service: 04/15/17 1622 PROCEDURE: X-RAY CHEST, TWO VIEWS ([id number]) IMPRESSION: No acute pulmonary process. Dictated by: Gwendolyn Joseph M.D. on 04/15/2017 at 18:31 Approved by: Gwendolyn Joseph M.D. on 04/15/2017 at 18:32 Cardiac Echo Impressions Echo 04/18/17 Interpretation Summary There are two mobile echogenicities (consider vegetations) attatched to the atrial side of the RV pacer wire. The left ventricle is borderline dilated. Left ventricular wall thickness is at the upper limits of normal. Left ventricular ejection fraction is estimated to be 40%. There is hypokinesis of the basal to mid septum and basal to mid inferior wall. There is mild to moderate mitral regurgitation. The right ventricular systolic pressure is estimated at 34 mmHg assuming a right atrial pressure of 15 mm Hg. Compared to the prior exam, left ventricular function is slightly decreased. Additional Diagnostics Stress Tests 04/17, 04/18 IMPRESSION: 1. No reversible stress perfusion defects indicative of ischemia. 2. Depressed ejection fraction at 35%. 3. No definitive EKG changes of ischemia. PQRS ATTESTATIONS: Measure 322 - Is this imaging test primarily performed on a low-risk surgery patient for preoperative evaluation within 30 days preceding their low-risk non- cardiac surgery? Low-risk surgery is defined as cardiac or myocardial infarction less than 1%, including (but not limited to) endoscopic procedures, superficial procedures, cataract surgery, and excisional breast surgery: Answer : No Measure 323 - Is this imaging test performed primarily for the monitoring of an asymptomatic patient who had percutaneous coronary intervention on the visit date or within 2 years of the visit date? Answer: No Measure 324 - Is this imaging test performed primarily for the initial detection and risk assessment on an asymptomatic, low coronary heart disease patient? Low CHD risk definition = clinicians should consider the maximum number of available patient factors used to estimate risk based on [place] ( ATP III criteria), typically age, gender, diabetes, smoking status, and use of blood pressure medication, and integrate age appropriate estimates for missing elements, such as LDL or standard blood pressure. Answer: No Dictated by: Gwendolyn Joseph M.D. on 04/18/2017 at 16:31 Approved by: Gwendolyn Joseph M.D. on 04/18/2017 at 16:38 Assessment & Plan Ms. Myers is a 56-year-old female with history of congenital IgA deficiency and has a Lupus anticoagulant follow by Dr. Rodríguez. , chronic systolic and diastolic heart failure with AICD pacemaker, prior CO, and COPD that presented with left-sided chest pain radiating into her left neck, accompanied by nausea and shortness of breath. #Pacemaker Lead Vegetation, present on admission, chronic. Ongoing. - Echo revealed vegetation on pacemaker lead - Differential includes infection (endocarditis) vs. hypercoaguable state ( Lupus anticoagulant) vs. benign vegetations due to pancreatic mass - CT as above; pancreatic mass continues to be stable - Patient was on multiple antibiotics prior to admission, received Azithromycin for her COPD exacerbation while admitted - ID consulted, appreciate Dr. Martinez's recommendations: Discontinue antibiotics and watch patient response, repeat blood cultures after antibiotics wash out of her system for she is ultimately discharged. Repeat Procalcitonin 0.1 suggestive of noninfectious etiology. #Chest pain, acute, present on admission. Resolved - Possible unstable angina (EKG showed NSR at 87 with frequent PVC's, no ST changes, negative troponin). - Stress tests as above - Echo as above - Continue Metoprolol Tartrate 25mg PO daily - Titrated Lisinopril up to 2.5 mg BID per Cardiology (Dr. Ugarte); consider increasing more if BP uncontrolled #MRSA, present on admission. Active. - MRSA positive nasal swab - Continue Bactriban ointment BID for 10 days (stop 04/26) #history of congenital IgA deficiency and has a Lupus anticoagulant, POA, active. follow by Dr. Rodríguez. Woman was initially held, restarted on 04/22. Continue to bridge with Lovenox until INR therapeutic between 2-3. Patient can follow-up with previous Coumadin clinic upon discharge. #COPD exacerbation, present on admission. Resolved. - Patient has productive cough but no consolidations on CXR; maintaining saturations without oxygen - Continue with home inhalers as needed #History of mood disorder, present on admission. Stable. - Continue home Venlafaxine. #History of benign-appearing pancreatic neoplasm, present on admission - Followed by Damaris Munoz - Ct as above; no progression or concern for malignancy at this time Acetaminophen for mild pain, headache, and fever when necessary. Bowel regimen Senna and MiraLAX scheduled as necessary. Zofran when necessary for nausea and vomiting. SubQ heparin for now. SCDs in place. Disposition: Patient will likely be admitted for the next couple days as we continue with her complex medical work up and formulate an ongoing treatment plan. Pain Evaluation: Adequate Pain Control GI Prophylaxis: Other VTE Prophylaxis: Other (Lovenox BID TX DOSE) Resuscitation Status: CPR: Attempt Resuscitation Donald Epps MD Apr 22, 2017 15:43
--- NOTE | 2017-04-22 16:02 | NUR ---
Social Work: Multidisciplinary Rounds Pt discussed in am rounds; pt discontinued ABX. Pt to start Coumadin tonight and likely remain in hospital for 2-3 more days to observe anticoagulation. SW will continue to follow for needs. DARLYN Esquivel
[2017-04-22 16:50] VITALS: BP 133/77; PULSE 68; RESP 18; O2SAT 97
[2017-04-22] MEDS ORDERED: PEG/Electrolytes 4,000 mL Solution PO SCH (17:15)
--- NOTE | 2017-04-22 17:32 | NUR ---
ACTIVITY Oxicodone 5 mg PO administered for c/of chest pain, which was helpful. Patient is also complaining of abdominal pain. No BM for 8 days. Senna and Miralax was not effective. MD made aware. New order for Colyte prep administered. Tolerating liquids PO and her diet well. Denies nausea. No emesis noted. Denies SOB. Ambulating independently in the room. Voiding without any problems. Continues to be on contact precaution for MRSA in her nares.
[2017-04-22 20:01] VITALS: BP 164/87; PULSE 64; RESP 17; O2SAT 98
[2017-04-22] MEDS ORDERED: Senna-Docusate 8.6-50 mg Tablet PO SCH (20:30)
[2017-04-22] MEDS: Senna-Docusate 8.6-50 mg Tablet PO SCH (20:45)
[2017-04-23] MEDS: 0.9% Sodium Chloride 1,000 ML IV SCH ×3 (02:22→22:22)
--- NOTE | 2017-04-23 03:27 | NUR ---
BM Patient started on Colyte Prep during day shift for no BM x 1 week. Patients initial BM this shift was "very hard and hard to get out" per patient. States having a hard time passing stool is her baseline r/t previous bowel surgeries. Multiple other BM's throughout the shift. Some c/o nausea- given routine Zofran ODT with effective results. Patient states BM's have since slowed down and are becoming "softer" to pass.
[2017-04-23 04:53] VITALS: BP 128/75; PULSE 65; RESP 17; O2SAT 94
[2017-04-23] MEDS: Sodium Chloride LOK Flush 10 mL Syringe IVFLUSH SCH ×3 (08:30→23:43)
[2017-04-23] MEDS: Venlafaxine XR 37.5 mg ER24 Capsule PO SCH ×2 (10:00→22:06)
[2017-04-23] MEDS: MeTOProlol XL 25 mg ER24 Tablet PO SCH (10:00)
[2017-04-23] MEDS: Fluticasone 0.05% 15 Spray/2 Gm 16 Gm Nasal Spray NASAL SCH ×2 (10:01→22:07)
[2017-04-23] MEDS: Mupirocin 2% 22 Gm Ointment TOPICAL SCH ×2 (10:02→22:07)
[2017-04-23] MEDS: Senna-Docusate 8.6-50 mg Tablet PO SCH ×2 (10:29→22:07)
[2017-04-23] MEDS: LORazepam 1 mg Tablet PO PRN ×2 (10:29→16:42)
--- NOTE | 2017-04-23 10:40 | NUR ---
Albuterol Pt is requesting to use an Albuterol inhaler, which she normally has at home. Cook page sent to hospitalist to request this be added to her EMAR.
--- NOTE | 2017-04-23 10:57 | NUR ---
SHAHRZAD signed. Earlene Ashraf SUPERVISOR SPEECH
[2017-04-23] MEDS ORDERED: Albuterol HFA 60 Puff 8 Gm Inhaler INHALATION PRN (11:05)
--- NOTE | 2017-04-23 11:51 | NUR ---
Social Work- Readiness for Discharge/Multidisciplinary Rounds Data: EMR reviewed. Pt is on day 7 of hospitalization. Pt discussed in rounds. Pt is likely to discharge Tuesday. Cultures are pending. TRINA was made aware of pt's concerns related to insurance. TRINA met with pt at bedside to address concerns and worked with pt to contact [facility]. SW provided a listening presence to pt's concerns and questions. TRINA confirmed that pt's insurance is registered in process accounts. TRINA provided pt with [facility] Customer Help line to call on Tuesday. SW provided Complaint Line contact information to pt. Pt confirms that her family will be able to transport home at discharge. Pt is interested in outpt PT and SW encouraged pt to speak with MD about this. SW provided information regarding [facility] and [facility] care application, as this info got lost in transport. Pt agreeable to potential discharge on Tuesday. No additional discharge needs identified. SW will continue to follow. Assessment: Pt who is independent at baseline. Plan: TRINA provided information regarding [facility] and [facility] care application, as this info got lost in transport. Pt agreeable to potential discharge on Tuesday. Pt confirms that her family will be able to transport home at discharge. No additional discharge needs identified. SW will continue to follow. DARLYN Guzman
--- NOTE | 2017-04-23 12:02 | PCM.PHAPRO ---
Progress Warfarin Management Per Pharmacy: Indication: DVT prophylaxis as is positive for lupus anticoagulant Goal INR: 2-3 Home Dose: Warfarin 5 mg daily except for Tuesdays (previous admission in August 5mg daily) Concurrent Anticoagulation: Enoxaparin 60mg sq q12 Coagulation Trends: 1.07 1 -0.07 7.5 MG 5MG Plan: will continue with home dose of warfarin 5mg and monitor Kenya Lizarraga [facility] Apr 23, 2017 12:02
[2017-04-23 13:50] VITALS: PULSE 60; RESP 18; O2SAT 98
[2017-04-23 13:57] VITALS: BP 142/82; PULSE 60; RESP 18; O2SAT 99
--- NOTE | 2017-04-23 17:03 | PCM.PNMED ---
Subjective Date of Service Apr 23, 2017 Subjective Had bowel movement last night after getting small dose of GoLYTELY. Exam Vital Signs Vital Sign - Last Date Time Temp Pulse Resp B/P Pulse Ox O2 Delivery O2 Flow Rate FiO2 04/23/17 15:50 Room Air 04/23/17 13:57 36.4 60 18 142/82 99 04/17/17 01:03 1.00 Intake and Output 04/22/17 04/22/17 04/23/17 Cumulative From/Thru 15:00 23:00 07:00 04/15/17 16:16 - 04/23/17 04:52 Intake Total 450 ml 1200 ml 61053 ml Output Total 600 ml 650 ml 7700 ml Balance -150 ml 550 ml 3061 ml Intake Oral 450 ml 1200 ml 7971 ml IV Total 2790 ml Output Urine Total 600 ml 650 ml 7700 ml # Voids 2 # Bowel Movements 3 3 Exam General: Age-appropriate female laying in bed watching TV in NAD. HEENT: NCAT. PERRLA, EOMI. Membranes pink and moist. Multiple broken teeth without signs of overt infection. Neck: Supple, nontender. No JVD, thyromegaly. CV: RRR, positive systolic murmur Pulm: Coarse breath sounds bilaterally but no wheezing/rales/rhonchi. Abd: Soft, nontender nondistended. Bowel sounds present. Extremities: No cyanosis, clubbing, edema. Neuro: A&Ox3. CN 2-12 intact, muscle strength greater on left than right upper and lower extremities. Psych: Normal mood and affect. Lab and Diagnostics Result Diagram: 04/22/1752804/22/17 0529 X-Rays, CTs and MRIs Brain CTA 04/17/17 IMPRESSION: 1. No acute intracranial process. 2. No areas of hemodynamically significant stenosis, vascular occlusion or aneurysmal dilation within the anterior circulation. 3. No areas of hemodynamically significant stenosis, vascular occlusion or aneurysmal dilation within the posterior circulation. 4. No areas of hemodynamically significant stenosis, vascular occlusion or aneurysmal dilation within the neck vasculature. Dictated by: Gwendolyn Joseph M.D. on 04/17/2017 at 13:43 Approved by: Gwendolyn Joseph M.D. on 04/17/2017 at 13:47 Patient Name: KEYANNA MYERS MR#: [id number] Location: [facility]: JOSE QUIGLEY MD Date of Service: 04/15/17 1622 PROCEDURE: X-RAY CHEST, TWO VIEWS ([id number]) IMPRESSION: No acute pulmonary process. Dictated by: Gwendolyn Joseph M.D. on 04/15/2017 at 18:31 Approved by: Gwendolyn Joseph M.D. on 04/15/2017 at 18:32 Cardiac Echo Impressions Echo 04/18/17 Interpretation Summary There are two mobile echogenicities (consider vegetations) attatched to the atrial side of the RV pacer wire. The left ventricle is borderline dilated. Left ventricular wall thickness is at the upper limits of normal. Left ventricular ejection fraction is estimated to be 40%. There is hypokinesis of the basal to mid septum and basal to mid inferior wall. There is mild to moderate mitral regurgitation. The right ventricular systolic pressure is estimated at 34 mmHg assuming a right atrial pressure of 15 mm Hg. Compared to the prior exam, left ventricular function is slightly decreased. Additional Diagnostics Stress Tests 04/17, 04/18 IMPRESSION: 1. No reversible stress perfusion defects indicative of ischemia. 2. Depressed ejection fraction at 35%. 3. No definitive EKG changes of ischemia. PQRS ATTESTATIONS: Measure 322 - Is this imaging test primarily performed on a low-risk surgery patient for preoperative evaluation within 30 days preceding their low-risk non- cardiac surgery? Low-risk surgery is defined as cardiac or myocardial infarction less than 1%, including (but not limited to) endoscopic procedures, superficial procedures, cataract surgery, and excisional breast surgery: Answer : No Measure 323 - Is this imaging test performed primarily for the monitoring of an asymptomatic patient who had percutaneous coronary intervention on the visit date or within 2 years of the visit date? Answer: No Measure 324 - Is this imaging test performed primarily for the initial detection and risk assessment on an asymptomatic, low coronary heart disease patient? Low CHD risk definition = clinicians should consider the maximum number of available patient factors used to estimate risk based on [place] ( ATP III criteria), typically age, gender, diabetes, smoking status, and use of blood pressure medication, and integrate age appropriate estimates for missing elements, such as LDL or standard blood pressure. Answer: No Dictated by: Gwendolyn Joseph M.D. on 04/18/2017 at 16:31 Approved by: Gwendolyn Joseph M.D. on 04/18/2017 at 16:38 Assessment & Plan Ms. Myers is a 56-year-old female with history of congenital IgA deficiency and has a Lupus anticoagulant follow by Dr. Rodríguez. , chronic systolic and diastolic heart failure with AICD pacemaker, prior [place], and COPD that presented with left-sided chest pain radiating into her left neck, accompanied by nausea and shortness of breath. #Pacemaker Lead Vegetation, present on admission, chronic. Ongoing. - Echo revealed vegetation on pacemaker lead - Differential includes infection (endocarditis) vs. hypercoaguable state ( Lupus anticoagulant) vs. benign vegetations due to pancreatic mass - CT as above; pancreatic mass continues to be stable - Patient was on multiple antibiotics prior to admission, received Azithromycin for her COPD exacerbation while admitted - ID consulted, appreciate Dr. Martinez's recommendations: Discontinue antibiotics and watch patient response, repeat blood cultures after antibiotics wash out of her system for she is ultimately discharged. Repeat Procalcitonin 0.1 suggestive of noninfectious etiology. #Chest pain, acute, present on admission. Resolved - Possible unstable angina (EKG showed NSR at 87 with frequent PVC's, no ST changes, negative troponin). - Stress tests as above - Echo as above - Continue Metoprolol Tartrate 25mg PO daily #MRSA, present on admission. Active. - MRSA positive nasal swab - Continue Bactriban ointment BID for 10 days (stop 04/26) #history of congenital IgA deficiency and has a Lupus anticoagulant, POA, active. follow by Dr. Rodríguez. Woman was initially held, restarted on 04/22. Continue to bridge with Lovenox until INR therapeutic between 2-3. Patient can follow-up with previous Coumadin clinic upon discharge. Day 2 Coumadin. INR in AM. #COPD exacerbation, present on admission. Resolved. - Patient has productive cough but no consolidations on CXR; maintaining saturations without oxygen - Continue with home inhalers as needed #History of mood disorder, present on admission. Stable. - Continue home Venlafaxine. #History of benign-appearing pancreatic neoplasm, present on admission - Followed by Damaris Munoz - Ct as above; no progression or concern for malignancy at this time Acetaminophen for mild pain, headache, and fever when necessary. Bowel regimen Senna and MiraLAX scheduled as necessary. Zofran when necessary for nausea and vomiting. SubQ heparin for now. SCDs in place. Disposition: Patient will likely be admitted for the next couple days as we continue with her complex medical work up and formulate an ongoing treatment plan. GI Prophylaxis: Other VTE Prophylaxis: Other (Lovenox BID TX DOSE) Resuscitation Status: CPR: Attempt Resuscitation Donald Epps MD Apr 23, 2017 17:03
[2017-04-23 18:16] VITALS: BP 157/78; PULSE 65; RESP 18; O2SAT 98
[2017-04-23 19:30] VITALS: BP 137/70; PULSE 63; RESP 16; O2SAT 96
[2017-04-24] MEDS: LORazepam 1 mg Tablet PO PRN ×4 (01:12→23:08)
--- NOTE | 2017-04-24 03:42 | NUR ---
Activity Patient up walking unit with FWW independently. States her RLS is acting up. Walked off unit as well with staff member. Tolerated well. Gait steady. No c/o dizziness or lightheadedness.
[2017-04-24 05:55] VITALS: BP 129/72; PULSE 68; RESP 16; O2SAT 97
[2017-04-24 06:13] LABS: INR 1.01 ratio
[2017-04-24] MEDS: 0.9% Sodium Chloride 1,000 ML IV SCH ×2 (08:22→17:51)
[2017-04-24 08:29] LABS: BASOPHILS % (AUTO) 0.6 % (0-3); EOSINOPHILS % (AUTO) 0 % (0-5); MONOCYTES % (AUTO) 8.9 % (4-12); Mean Corpuscular Volume 82.1 fL (81-100); NEUTROPHILS % (AUTO) 42.2 % (40-74); Platelet Count 156 bil/L (150-400)
[2017-04-24] MEDS: Sodium Chloride LOK Flush 10 mL Syringe IVFLUSH SCH ×3 (08:57→23:11)
[2017-04-24] MEDS: Fluticasone 0.05% 15 Spray/2 Gm 16 Gm Nasal Spray NASAL SCH ×2 (08:57→20:36)
[2017-04-24] MEDS: Mupirocin 2% 22 Gm Ointment TOPICAL SCH ×2 (08:57→20:37)
[2017-04-24] MEDS: MeTOProlol XL 25 mg ER24 Tablet PO SCH (08:58)
[2017-04-24] MEDS: Venlafaxine XR 37.5 mg ER24 Capsule PO SCH ×2 (08:58→20:30)
[2017-04-24] MEDS: Senna-Docusate 8.6-50 mg Tablet PO SCH ×2 (08:58→20:36)
--- NOTE | 2017-04-24 11:15 | PCM.PHAPRO ---
Progress Date of Service: Apr 24, 2017 Warfarin dosing Date Apr 23-Apr 24-Apr INR 1.07 1 1.01 INR change -0.07 0.01 Warf Dose 7.5 MG 5MG 7.5MG Giancarlo Christopher Apr 24, 2017 11:15
[2017-04-24 12:42] VITALS: BP 146/83; PULSE 60; RESP 16; O2SAT 99
--- NOTE | 2017-04-24 13:24 | NUR ---
Anxiety This AM, patient stated she was up all night and felt more anxious than normal. I talked with patient about possible contributions to her anxiety and about keeping a calm and soothing environment. Patient stated that at home she takes 1-2mg of Ativan every 4 hours for her anixety. After breakfast, patient was able to take 2 naps and stated "I keep falling asleep. Deep sleep.". Patient seems to be less anxious throughout shift compared to this AM. Continuing hourly rounding, assessing anxiety Q4 hours, and assessing patient's anxiety and pain requirements.
--- NOTE | 2017-04-24 13:38 | PCM.PNMED ---
Subjective Date of Service Apr 24, 2017 Subjective No overnight events. Blood Cultures obtained this AM. Exam Vital Signs Vital Sign - Last Date Time Temp Pulse Resp B/P Pulse Ox O2 Delivery O2 Flow Rate FiO2 04/24/17 12:42 36.8 60 16 146/83 99 Room Air Intake and Output 04/23/17 04/23/17 04/24/17 Cumulative From/Thru 15:00 23:00 07:00 04/15/17 16:16 - 04/24/17 05:55 Intake Total 800 ml 1674 ml 24007 ml Output Total 1350 ml 1450 ml 46341 ml Balance -550 ml 224 ml 2735 ml Intake Oral 800 ml 1674 ml 40431 ml IV Total 2790 ml Output Urine Total 1350 ml 1450 ml 78466 ml # Voids 2 # Bowel Movements 0 0 3 Exam General: Age-appropriate female laying in bed watching TV in NAD. HEENT: NCAT. PERRLA, EOMI. Membranes pink and moist. Multiple broken teeth without signs of overt infection. Neck: Supple, nontender. No JVD, thyromegaly. CV: RRR, positive systolic murmur Pulm: Coarse breath sounds bilaterally but no wheezing/rales/rhonchi. Abd: Soft, nontender nondistended. Bowel sounds present. Extremities: No cyanosis, clubbing, edema. Neuro: A&Ox3. CN 2-12 intact, muscle strength greater on left than right upper and lower extremities. Psych: Normal mood and affect. IVs and Medications Medications Reviewed: Medications were reviewed in detail Lab and Diagnostics Result Diagram: 04/24/17 0810 04/24/17 0810 X-Rays, CTs and MRIs Brain CTA 04/17/17 IMPRESSION: 1. No acute intracranial process. 2. No areas of hemodynamically significant stenosis, vascular occlusion or aneurysmal dilation within the anterior circulation. 3. No areas of hemodynamically significant stenosis, vascular occlusion or aneurysmal dilation within the posterior circulation. 4. No areas of hemodynamically significant stenosis, vascular occlusion or aneurysmal dilation within the neck vasculature. Dictated by: Gwendolyn Joseph M.D. on 04/17/2017 at 13:43 Approved by: Gwendolyn Joseph M.D. on 04/17/2017 at 13:47 Patient Name: KEYANNA MYERS MR#: [id number] Location: [facility] [place] Ordering Phys: DOC, ED MD Date of Service: 04/15/17 1622 PROCEDURE: X-RAY CHEST, TWO VIEWS ([id number]) IMPRESSION: No acute pulmonary process. Dictated by: Gwendolyn Joseph M.D. on 04/15/2017 at 18:31 Approved by: Gwendolyn Joseph M.D. on 04/15/2017 at 18:32 Cardiac Echo Impressions Echo 04/18/17 Interpretation Summary There are two mobile echogenicities (consider vegetations) attatched to the atrial side of the RV pacer wire. The left ventricle is borderline dilated. Left ventricular wall thickness is at the upper limits of normal. Left ventricular ejection fraction is estimated to be 40%. There is hypokinesis of the basal to mid septum and basal to mid inferior wall. There is mild to moderate mitral regurgitation. The right ventricular systolic pressure is estimated at 34 mmHg assuming a right atrial pressure of 15 mm Hg. Compared to the prior exam, left ventricular function is slightly decreased. Additional Diagnostics Stress Tests 04/17, 04/18 IMPRESSION: 1. No reversible stress perfusion defects indicative of ischemia. 2. Depressed ejection fraction at 35%. 3. No definitive EKG changes of ischemia. PQRS ATTESTATIONS: Measure 322 - Is this imaging test primarily performed on a low-risk surgery patient for preoperative evaluation within 30 days preceding their low-risk non- cardiac surgery? Low-risk surgery is defined as cardiac or myocardial infarction less than 1%, including (but not limited to) endoscopic procedures, superficial procedures, cataract surgery, and excisional breast surgery: Answer : No Measure 323 - Is this imaging test performed primarily for the monitoring of an asymptomatic patient who had percutaneous coronary intervention on the visit date or within 2 years of the visit date? Answer: No Measure 324 - Is this imaging test performed primarily for the initial detection and risk assessment on an asymptomatic, low coronary heart disease patient? Low CHD risk definition = clinicians should consider the maximum number of available patient factors used to estimate risk based on [place] ( ATP III criteria), typically age, gender, diabetes, smoking status, and use of blood pressure medication, and integrate age appropriate estimates for missing elements, such as LDL or standard blood pressure. Answer: No Dictated by: Gwendolyn Joseph M.D. on 04/18/2017 at 16:31 Approved by: Gwendolyn Joseph M.D. on 04/18/2017 at 16:38 Assessment & Plan Ms. Myers is a 56-year-old female with history of congenital IgA deficiency and has a Lupus anticoagulant follow by Dr. Rodríguez. , chronic systolic and diastolic heart failure with AICD pacemaker, prior NH, and COPD that presented with left-sided chest pain radiating into her left neck, accompanied by nausea and shortness of breath. #Pacemaker Lead Vegetation, present on admission, chronic. Ongoing. - Echo revealed vegetation on pacemaker lead - Differential includes infection (endocarditis) vs. hypercoaguable state ( Lupus anticoagulant) vs. benign vegetations due to pancreatic mass - CT as above; pancreatic mass continues to be stable - Patient was on multiple antibiotics prior to admission, received Azithromycin for her COPD exacerbation while admitted - ID consulted, appreciate Dr. Martinez's recommendations: Discontinue antibiotics and watch patient response, repeat blood cultures after antibiotics wash out of her system for she is ultimately discharged. Repeat Procalcitonin 0.1 suggestive of noninfectious etiology. - Repeat Blood Cx obtained 04/24 AM. If these are negative can d/c home off abx. #history of congenital IgA deficiency and has a Lupus anticoagulant, POA, active. follow by Dr. Rodríguez. Woman was initially held, restarted on 04/22. Continue to bridge with Lovenox until INR therapeutic between 2-3. Patient can follow-up with previous Coumadin clinic upon discharge. Day 3 Coumadin. INR in AM. #Chest pain, acute, present on admission. Resolved - Possible unstable angina (EKG showed NSR at 87 with frequent PVC's, no ST changes, negative troponin). - Stress tests as above - Echo as above - Continue Metoprolol Tartrate 25mg PO daily #MRSA, present on admission. Active. - MRSA positive nasal swab - Bactriban ointment BID for 10 days (stopped 04/26) #COPD exacerbation, present on admission. Resolved. - Patient has productive cough but no consolidations on CXR; maintaining saturations without oxygen - Continue with home inhalers as needed #History of mood disorder, present on admission. Stable. - Continue home Venlafaxine. #History of benign-appearing pancreatic neoplasm, present on admission - Followed by Damaris Munoz - Ct as above; no progression or concern for malignancy at this time Acetaminophen for mild pain, headache, and fever when necessary. Bowel regimen Senna and MiraLAX scheduled as necessary. Zofran when necessary for nausea and vomiting. SubQ heparin for now. SCDs in place. Disposition: Patient will likely be admitted for the next couple days as we continue with her complex medical work up and formulate an ongoing treatment plan. -Repeat Blood Cx obtained 04/24 AM. If these are negative can d/c home off abx. - Continue to bridge with Lovenox until INR therapeutic between 2-3. Patient can follow-up with previous Coumadin clinic upon discharge. GI Prophylaxis: Other VTE Prophylaxis: Other (Lovenox BID [place] DOSE) Resuscitation Status: CPR: Attempt Resuscitation Donald Epps MD Apr 24, 2017 13:38
--- NOTE | 2017-04-24 16:27 | NUR ---
Social Work- Multidisciplinary Rounds Pt discussed in rounds. Pt is likely to discharge tomorrow. SW unable to see pt today due to high census. SW will continue to follow. DARLYN Guzman
[2017-04-24] MEDS ORDERED: Warfarin 5 MG, Warfarin 2.5 MG PO ONE ×2 (17:00)
[2017-04-24 20:11] VITALS: BP 174/94; PULSE 62; RESP 19; O2SAT 99
[2017-04-24 23:22] VITALS: BP 169/94; PULSE 67
[2017-04-25] MEDS: 0.9% Sodium Chloride 1,000 ML IV SCH (04:22)
--- NOTE | 2017-04-25 04:41 | NUR ---
Pain / anxiety / sleep Pain management with PO Dilaudid, pt reports very little relief but she is willing to tolerate. Mild anxiety and distress managed with PO Ativan. Reports able to sleep minimal amount in night, better than previous night. Anxious to get home. Hourly rounding ongoing.
[2017-04-25 05:50] VITALS: BP 153/101; PULSE 60; RESP 17; O2SAT 97
[2017-04-25] MEDS: LORazepam 1 mg Tablet PO PRN (05:58)
[2017-04-25 06:07] LABS: INR 0.99 ratio
[2017-04-25] MEDS: Venlafaxine XR 37.5 mg ER24 Capsule PO SCH (08:34)
[2017-04-25] MEDS: Sodium Chloride LOK Flush 10 mL Syringe IVFLUSH SCH (08:35)
[2017-04-25] MEDS: MeTOProlol XL 25 mg ER24 Tablet PO SCH (08:35)
[2017-04-25] MEDS: Mupirocin 2% 22 Gm Ointment TOPICAL SCH (08:35)
[2017-04-25] MEDS: Fluticasone 0.05% 15 Spray/2 Gm 16 Gm Nasal Spray NASAL SCH (08:35)
[2017-04-25] MEDS: Senna-Docusate 8.6-50 mg Tablet PO SCH (08:37)
--- NOTE | 2017-04-25 10:49 | NUR ---
Social Work: Readiness for Discharge/Multi-Disciplinary Rounds D: EMR reviewed. Pt is on day 9 of hospitalization. Per rounds, pt's cultures are negative and and will receive Lovenox injection until INR is therapeutic. MD will determine where pt gets INR checked and provide pt education on INR follow-up with PCP. A: Pt who is independent at baseline. P: Per MD, pt likely to discharge today via POV. Pt's ride to arrive sometime early this afternoon. No SW discharge needs identified. SW will continue to follow for needs. DARLYN Esquivel
--- NOTE | 2017-04-25 11:58 | PCM.PNMED ---
Subjective Date of Service Apr 25, 2017 Subjective Pt denies any fever/chills since stopping antibiotics. Exam Vital Signs Vital Sign - Last Date Time Temp Pulse Resp B/P Pulse Ox O2 Delivery O2 Flow Rate FiO2 04/25/17 05:50 36.5 60 17 153/101 97 Room Air Intake and Output 04/24/17 04/24/17 04/25/17 Cumulative From/Thru 15:00 23:00 07:00 04/15/17 16:16 - 04/25/17 06:54 Intake Total 1400 ml 640 ml 80329 ml Output Total 800 ml 600 ml 40889 ml Balance 600 ml 40 ml 3375 ml Intake Oral 1400 ml 640 ml 37397 ml IV Total 2790 ml Output Urine Total 800 ml 600 ml 38840 ml # Voids 3 5 # Bowel Movements 0 3 Exam General: NAD, AOX3. HEENT: NCAT. PERRLA, EOMI. Membranes pink and moist. Multiple broken teeth without signs of overt infection. Neck: Supple, nontender. No JVD, thyromegaly. CV: RRR, murmur Pulm: Coarse breath sounds bilaterally but no wheezing/rales/rhonchi. Abd: Soft, nontender nondistended. Bowel sounds present. Extremities: No cyanosis, clubbing, edema. Neuro: A&Ox3. CN 2-12 intact, muscle strength greater on left than right upper and lower extremities. Psych: Normal mood and affect. IVs and Medications Medications Reviewed: Medications were reviewed in detail Lab and Diagnostics Result Diagram: 04/24/17 0810 04/24/17 0810 X-Rays, CTs and MRIs Brain CTA 04/17/17 IMPRESSION: 1. No acute intracranial process. 2. No areas of hemodynamically significant stenosis, vascular occlusion or aneurysmal dilation within the anterior circulation. 3. No areas of hemodynamically significant stenosis, vascular occlusion or aneurysmal dilation within the posterior circulation. 4. No areas of hemodynamically significant stenosis, vascular occlusion or aneurysmal dilation within the neck vasculature. Dictated by: Gwendolyn Joseph M.D. on 04/17/2017 at 13:43 Approved by: Gwendolyn Joseph M.D. on 04/17/2017 at 13:47 Patient Name: KEYANNA MYERS MR#: [id number] Location: [facility] [place] Ordering Phys: [facility], ED Date of Service: 04/15/17 1622 PROCEDURE: X-RAY CHEST, TWO VIEWS ([id number]) IMPRESSION: No acute pulmonary process. Dictated by: Gwendolyn Joseph M.D. on 04/15/2017 at 18:31 Approved by: Gwendolyn Joseph M.D. on 04/15/2017 at 18:32 Cardiac Echo Impressions Echo 04/18/17 Interpretation Summary There are two mobile echogenicities (consider vegetations) attatched to the atrial side of the RV pacer wire. The left ventricle is borderline dilated. Left ventricular wall thickness is at the upper limits of normal. Left ventricular ejection fraction is estimated to be 40%. There is hypokinesis of the basal to mid septum and basal to mid inferior wall. There is mild to moderate mitral regurgitation. The right ventricular systolic pressure is estimated at 34 mmHg assuming a right atrial pressure of 15 mm Hg. Compared to the prior exam, left ventricular function is slightly decreased. Additional Diagnostics Stress Tests 04/17, 04/18 IMPRESSION: 1. No reversible stress perfusion defects indicative of ischemia. 2. Depressed ejection fraction at 35%. 3. No definitive EKG changes of ischemia. RS ATTESTATIONS: Measure 322 - Is this imaging test primarily performed on a low-risk surgery patient for preoperative evaluation within 30 days preceding their low-risk non- cardiac surgery? Low-risk surgery is defined as cardiac or myocardial infarction less than 1%, including (but not limited to) endoscopic procedures, superficial procedures, cataract surgery, and excisional breast surgery: Answer : No Measure 323 - Is this imaging test performed primarily for the monitoring of an asymptomatic patient who had percutaneous coronary intervention on the visit date or within 2 years of the visit date? Answer: No Measure 324 - Is this imaging test performed primarily for the initial detection and risk assessment on an asymptomatic, low coronary heart disease patient? Low CHD risk definition = clinicians should consider the maximum number of available patient factors used to estimate risk based on [place] ( ATP III criteria), typically age, gender, diabetes, smoking status, and use of blood pressure medication, and integrate age appropriate estimates for missing elements, such as LDL or standard blood pressure. Answer: No Dictated by: Gwendolyn Joseph M.D. on 04/18/2017 at 16:31 Approved by: Gwendolyn Joseph M.D. on 04/18/2017 at 16:38 Assessment & Plan Ms. [place] is a 56-year-old female with history of congenital IgA deficiency and has a Lupus anticoagulant follow by Dr. Rodríguez. , chronic systolic and diastolic heart failure with AICD pacemaker, prior [place], and COPD that presented with left-sided chest pain radiating into her left neck, accompanied by nausea and shortness of breath. #Pacemaker Lead Vegetation, present on admission, chronic. Ongoing. - Echo revealed vegetation on pacemaker lead - Differential includes infection (endocarditis) vs. hypercoaguable state ( Lupus anticoagulant) vs. benign vegetations due to pancreatic mass - CT as above; pancreatic mass continues to be stable - Patient was on multiple antibiotics prior to admission, received Azithromycin for her COPD exacerbation while admitted - ID consulted, appreciate Dr. Martinez's recommendations: Discontinue antibiotics and watch patient response, repeat blood cultures after antibiotics wash out of her system for she is ultimately discharged. Repeat Procalcitonin 0.1 suggestive of noninfectious etiology. - Repeat Blood Cx obtained 04/24 AM- No growth after 24 hours. Therefore can rule out infection. #history of congenital IgA deficiency and has a Lupus anticoagulant, POA, active. follow by Dr. Rodríguez. Woman was initially held, restarted on 04/22. Continue to bridge with Lovenox until INR therapeutic between 2-3. Patient can follow-up with previous Coumadin clinic upon discharge. Day 3 Coumadin. INR in AM. #Chest pain, acute, present on admission. Resolved - Possible unstable angina (EKG showed NSR at 87 with frequent PVC's, no ST changes, negative troponin). - Stress tests negative. - Echo as above - Continue Metoprolol Tartrate 25mg PO daily #MRSA, present on admission. Active. - MRSA positive nasal swab - Bactriban ointment BID for 10 days (stopped 04/26) #COPD exacerbation, present on admission. Resolved. - Patient has productive cough but no consolidations on CXR; maintaining saturations without oxygen - Continue with home inhalers as needed #History of mood disorder, present on admission. Stable. - Continue home Venlafaxine. #History of benign-appearing pancreatic neoplasm, present on admission - Followed by Damaris Munoz - Ct as above; no progression or concern for malignancy at this time Acetaminophen for mild pain, headache, and fever when necessary. Bowel regimen Senna and MiraLAX scheduled as necessary. Zofran when necessary for nausea and vomiting. SubQ heparin for now. SCDs in place. Disposition: - Repeat Blood Cultures obtained 04/24 show No growth after 24 hours. No evidence of infection and no indication for antibiotics. If develop fever, please call your PCP to restart antibiotics. - Continue to bridge with Lovenox injections twice daily until INR therapeutic between 2-3. - Follow-up with previous Coumadin clinic upon discharge. GI Prophylaxis: Other VTE Prophylaxis: Other (Lovenox BID TX DOSE) Resuscitation Status: CPR: Attempt Resuscitation Donald Epps MD Apr 25, 2017 11:58
--- NOTE | 2017-04-25 12:01 | PCM.DIMED ---
Discharge Instructions Date of Service Apr 25, 2017 Dates of Hospitalization Apr 16, 2017 at 00:23 Discharge Diagnosis Discharge Diagnosis Ms. Soriano is a 56-year-old female with history of congenital IgA deficiency and has a Lupus anticoagulant follow by Dr. Rodríguez. , chronic systolic and diastolic heart failure with AICD pacemaker, prior [place], and COPD that presented with left-sided chest pain radiating into her left neck, accompanied by nausea and shortness of breath. 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 #history of congenital IgA deficiency and has a Lupus anticoagulant, POA, active. #Chest pain, acute, present on admission. 2/2 to COPD Exacerbation. #Hx of MRSA, present on admission. Active. #COPD exacerbation, present on admission. Resolved. #History of mood disorder, present on admission. Stable. #History of benign-appearing pancreatic neoplasm, present on admission Diet Discharge Diet: Heart Healthy Call your provider Call your provider for: Fever or Chills Patient Instructions Patient Instructions - Repeat Blood Cultures obtained 04/24 show No growth after 24 hours. No evidence of infection and no indication for antibiotics. If develop fever, please call your PCP to restart antibiotics. - Continue to bridge with Lovenox injections twice daily until INR therapeutic between 2-3. Follow-up plan - Follow-up with previous Coumadin clinic upon discharge so can decide when to stop Lovenox injections. Follow-up Provider: Cristobal Berkowitz MD Follow-up with PCP in: 1 week Donald Epps MD Apr 25, 2017 12:01
[2017-04-25] MEDS ORDERED: WARF5TAB7 PO (12:02)
[2017-04-25] MEDS ORDERED: LOV60 SUBQ (12:03)
--- NOTE | 2017-04-25 12:04 | PCM.DC.MED ---
Discharge Summary Date of Service Apr 25, 2017 Dates of Hospitalization Date of Hospital Admission Apr 16, 2017 at 00:23 Date of Discharge: Apr 25, 2017 Providers: Admitting Physician: Viviane Crowder MD Primary Care Physician: Cristobal Berkowitz MD Attending Physician: Ignacio Khan MD Diagnosis at Time of Discharge Diagnosis at Time of Discharge Ms. Myers is a 56-year-old female with history of congenital IgA deficiency and has a Lupus anticoagulant follow by Dr. Rodríguez. , chronic systolic and diastolic heart failure with AICD pacemaker, prior [place], and COPD that presented with left-sided chest pain radiating into her left neck, accompanied by nausea and shortness of breath. 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 #history of congenital IgA deficiency and has a Lupus anticoagulant, POA, active. #Chest pain, acute, present on admission. 2/2 to COPD Exacerbation. #Hx of MRSA, present on admission. Active. #COPD exacerbation, present on admission. Resolved. #History of mood disorder, present on admission. Stable. #History of benign-appearing pancreatic neoplasm, present on admission Procedures XRay, CTs & MRIs Brain CTA 04/17/17 IMPRESSION: 1. No acute intracranial process. 2. No areas of hemodynamically significant stenosis, vascular occlusion or aneurysmal dilation within the anterior circulation. 3. No areas of hemodynamically significant stenosis, vascular occlusion or aneurysmal dilation within the posterior circulation. 4. No areas of hemodynamically significant stenosis, vascular occlusion or aneurysmal dilation within the neck vasculature. Dictated by: Gwendolyn Joseph M.D. on 04/17/2017 at 13:43 Approved by: Gwendolyn Joseph M.D. on 04/17/2017 at 13:47 Patient Name: KEYANNA MYERS MR#: [id number] Location: [facility] [place] Ordering Phys: JOSE QUIGLEY MD Date of Service: 04/15/17 1622 PROCEDURE: X-RAY CHEST, TWO VIEWS ([id number]) IMPRESSION: No acute pulmonary process. Dictated by: Gwendolyn Joseph M.D. on 04/15/2017 at 18:31 Approved by: Gwendolyn Joseph M.D. on 04/15/2017 at 18:32 Cardiac Echo Impression Echo 04/18/17 Interpretation Summary There are two mobile echogenicities (consider vegetations) attatched to the atrial side of the RV pacer wire. The left ventricle is borderline dilated. Left ventricular wall thickness is at the upper limits of normal. Left ventricular ejection fraction is estimated to be 40%. There is hypokinesis of the basal to mid septum and basal to mid inferior wall. There is mild to moderate mitral regurgitation. The right ventricular systolic pressure is estimated at 34 mmHg assuming a right atrial pressure of 15 mm Hg. Compared to the prior exam, left ventricular function is slightly decreased. Other Diagnostics Stress Tests 04/17, 04/18 IMPRESSION: 1. No reversible stress perfusion defects indicative of ischemia. 2. Depressed ejection fraction at 35%. 3. No definitive EKG changes of ischemia. PQRS ATTESTATIONS: Measure 322 - Is this imaging test primarily performed on a low-risk surgery patient for preoperative evaluation within 30 days preceding their low-risk non- cardiac surgery? Low-risk surgery is defined as cardiac or myocardial infarction less than 1%, including (but not limited to) endoscopic procedures, superficial procedures, cataract surgery, and excisional breast surgery: Answer : No Measure 323 - Is this imaging test performed primarily for the monitoring of an asymptomatic patient who had percutaneous coronary intervention on the visit date or within 2 years of the visit date? Answer: No Measure 324 - Is this imaging test performed primarily for the initial detection and risk assessment on an asymptomatic, low coronary heart disease patient? Low CHD risk definition = clinicians should consider the maximum number of available patient factors used to estimate risk based on [place] ( ATP III criteria), typically age, gender, diabetes, smoking status, and use of blood pressure medication, and integrate age appropriate estimates for missing elements, such as LDL or standard blood pressure. Answer: No Dictated by: Gwendolyn Joseph M.D. on 04/18/2017 at 16:31 Approved by: Gwendolyn Joseph M.D. on 04/18/2017 at 16:38 Brief History 56-year-old woman history of heart failure with reduced ejection fraction, AICD placement, pancreatic mass, lupus anticoagulant, hyperlipidemia, and former smoking admitted with shortness of breath. Patient states that she has had gradual worsening of her overall function over the past year or so. She she had a complex pelvic lift surgery last year at [facility] that was followed by a very complicated postoperative course. Since then, she has been on warfarin for her lupus anticoagulant. Patient states that she lives with her family and is able to take care of her ADLs but gets fatigued and short of breath while walking to her mailbox. She also gets intermittent atypical chest pain like what brought her to our ER and today. She denies lightheadedness or syncope. Patient does endorse over 20 pounds of unintentional weight loss over the past few months but denies any changes in her eating habits. Denies fevers, chills, or rigors. Hospital Course Ms. Myers is a 56-year-old female with history of congenital IgA deficiency and has a Lupus anticoagulant follow by Dr. Rodríguez. , chronic systolic and diastolic heart failure with AICD pacemaker, prior WI, and COPD that presented with left-sided chest pain radiating into her left neck, accompanied by nausea and shortness of breath. #Pacemaker Lead Vegetation, present on admission, chronic. Ongoing. - Echo revealed vegetation on pacemaker lead - Differential includes infection (endocarditis) vs. hypercoaguable state ( Lupus anticoagulant) vs. benign vegetations due to pancreatic mass - CT as above; pancreatic mass continues to be stable - Patient was on multiple antibiotics prior to admission, received Azithromycin for her COPD exacerbation while admitted - ID consulted, appreciate Dr. Martinez's recommendations: Discontinue antibiotics and watch patient response, repeat blood cultures after antibiotics wash out of her system for she is ultimately discharged. Repeat Procalcitonin 0.1 suggestive of noninfectious etiology. - Repeat Blood Cx obtained 04/24 AM- No growth after 24 hours. Therefore can rule out infection. #history of congenital IgA deficiency and has a Lupus anticoagulant, POA, active. follow by Dr. Rodríguez. Woman was initially held, restarted on 04/22. Continue to bridge with Lovenox until INR therapeutic between 2-3. Patient can follow-up with previous Coumadin clinic upon discharge. Day 3 Coumadin. INR in AM. #Chest pain, acute, present on admission. Resolved - Possible unstable angina (EKG showed NSR at 87 with frequent PVC's, no ST changes, negative troponin). - Stress tests negative. - Echo as above - Continue Metoprolol Tartrate 25mg PO daily #MRSA, present on admission. Active. - MRSA positive nasal swab - Bactriban ointment BID for 10 days (stopped 04/26) #COPD exacerbation, present on admission. Resolved. - Patient has productive cough but no consolidations on CXR; maintaining saturations without oxygen - Continue with home inhalers as needed #History of mood disorder, present on admission. Stable. - Continue home Venlafaxine. #History of benign-appearing pancreatic neoplasm, present on admission - Followed by Damaris Munoz - Danielle as above; no progression or concern for malignancy at this time Acetaminophen for mild pain, headache, and fever when necessary. Bowel regimen Senna and MiraLAX scheduled as necessary. Zofran when necessary for nausea and vomiting. SubQ heparin for now. SCDs in place. Disposition: - Repeat Blood Cultures obtained 04/24 show No growth after 24 hours. No evidence of infection and no indication for antibiotics. If develop fever, please call your PCP to restart antibiotics. - Continue to bridge with Lovenox injections twice daily until INR therapeutic between 2-3. - Follow-up with previous Coumadin clinic upon discharge. Exam Vital Signs (Last) Date Time Temp Pulse Resp B/P Pulse Ox O2 Delivery O2 Flow Rate FiO2 04/25/17 05:50 36.5 60 17 153/101 97 Room Air Test 04/15/17 17:02 04/16/17 01:10 04/16/17 09:02 04/16/17 20:20 Magnesium Level 2.2mg/dL (1.6-2.6) Lipase 39U/L (13-60) Hold Rosario Top Tube Received (Received) Hemoglobin A1c 5.5% (4.8-5.6) Total Creatine Kinase 61U/L (21-215) Creatine Kinase MB 2.4ng/mL (0.0-5.3) Creatine Kinase MB % % (0.0-5.0) Troponin T < 0.010ug/L (0.0-0.011) Test 04/17/17 03:15 04/18/17 02:30 04/18/17 02:50 04/19/17 05:02 Triglycerides Level 89mg/dL (0-149) Cholesterol Level 157mg/dL (100-199) LDL Cholesterol, Calculated 95.200mg/dL (0-99) VLDL Cholesterol 17.800mg/dL HDL Cholesterol 44mg/dL (>39) Cholesterol/HDL Ratio 3.57 (0.0-4.4) Urine Color Yellow (YELLOW) Urine Appearance Clear (CLEAR,HAZY) Urine pH 6.0 (5.0-8.0) Urine Specific [place] <1.005 (1.003-1.035) Urine Protein Negativemg/dL (NEG,TRACE) Urine Glucose (UA) Negativemg/dL (NEGATIVE) Urine Ketones Negativemg/dL (NEGATIVE) Urine Occult Blood Negative (NEGATIVE) Urine Nitrite Negative (NEGATIVE) Urine Bilirubin Negative (NEGATIVE) Urine Urobilinogen Normalmg/dL (NORMAL) Urine Leukocyte Esterase Negative (NEGATIVE) Urine RBC 0-2/hpf (0-2) Urine WBC 0-5/hpf (0-5) Urine Epithelial Cells Few/hpf (NONE-MOD) Urine Crystals None seen (NONE SEEN) Urine Bacteria Few/hpf (NONE-FEW) Urine Hyaline Casts None/lpf (NONE) Urine Granular Casts None seen (NONE SEEN) Urine Waxy Casts None seen (NONE SEEN) Urine Red Blood Cell Casts None seen (NONE SEEN) Urine White Blood Cell Casts None seen (NONE SEEN) Urine Mucus None seen (None Seen) Urine Trichomonas None seen (NONE SEEN) Urine Yeast None (NONE SEEN) Urinalysis Comment None Urine Culture Reflexed Not indicated Activated Partial Thromboplast Time 54.5sec (22.8-33.0) Erythrocyte Sedimentation Rate 29mm/hr (0-40) C-Reactive Protein 0.4mg/dL (0.0-0.5) Test 04/20/17 06:00 04/22/17 05:29 04/24/17 08:10 04/25/17 05:37 Hepatitis C Antibody 0.5s/co ratio (0.0-0.9) Total Bilirubin 0.2mg/dL (0.0-1.2) Aspartate Amino Transf (AST/SGOT) 17U/L (0-50) Alanine Aminotransferase (ALT/SGPT) 21U/L (0-32) Alkaline Phosphatase 79U/L (25-150) Total Protein 6.3g/dL (6.4-8.4) Albumin 3.3g/dL (3.4-5.0) Procalcitonin 0.11ng/mL (0.00-0.08) White Blood Count 3.3th/mm3 (3.8-10.1) Red Blood Count 3.96mil/mm3 (3.90-5.20) Hemoglobin 10.7g/dL (12.0-15.6) Hematocrit 32.5% (35.0-46.0) Mean Corpuscular Volume 82.1fL (81-100) Mean Corpuscular Hemoglobin 27.0pg (27.0-35.0) Mean Corpuscular Hemoglobin Concent 32.9% (32.0-37.0) Red Cell Distribution Width 14.6% (12.3-15.4) Platelet Count 156bil/L (150-400) Neutrophils (%) (Auto) 42.2% (40-74) Lymphocytes (%) (Auto) 48.3% (14-46) Monocytes (%) (Auto) 8.9% (4-12) Eosinophils (%) (Auto) 0% (0-5) Basophils (%) (Auto) 0.6% (0-3) Sodium Level 140mEq/L (134-144) Potassium Level 4.4mEq/L (3.5-5.2) Chloride Level 104mEq/L (97-108) Carbon Dioxide Level 22mmol/L (18-29) Blood Urea Nitrogen 13mg/dL (6-24) Creatinine 1.11mg/dL (0.57-1.00) Estimat Glomerular Filtration Rate 73mL/min (>59) Glucose Level 89mg/dL (60-99) Calcium Level 9.4mg/dL (8.5-10.1) Prothrombin Time 10.6sec (8.1-12.5) Prothromb Time International Ratio 0.99ratio Discharge Medications Discharge Medications Bisacodyl (Dulcolax) 5 Mg Tablet.dr 5 MG PO DAILY (Reported) Cyanocobalamin (Cyanocobalamin Injection) 1,000 Mcg/1 Ml Vial 1,000 MCG IM Monthly (Reported) Enoxaparin (Lovenox) 60 Mg/0.6 Ml Syringe 60 MG SUBQ Q12 Prescribed by: IGNACIO KHAN MD Fentanyl 75 mcg/hr Patch (Fentanyl 75 mcg/hr Patch) 1 Each Patch.td72 1 PATCH TRANSDERM Q3D (Reported) Fluticasone Propionate (Flonase Allergy Relief) 50 Mcg/Actuation [place].susp 1 SPRAY NS BID (Reported) Furosemide (Furosemide) 40 Mg Tablet 40 MG PO DAILY (Reported) Lisinopril (Lisinopril) 2.5 Mg Tablet 1.25 MG PO BID (Reported) Lorazepam (Lorazepam) 1 Mg Tablet 1-2 MG PO 4xdaily (Reported) Magnesium Oxide (Magox 400) 400 Mg Tablet 200 MG PO BID (Reported) Mirtazapine (Remeron) 30 Mg Tablet 45 MG PO HS (Reported) Ondansetron (Zofran) 8 Mg Tab 8 MG PO QID (Reported) Polyethylene Glycol 3350 (Miralax) 17 Gm Powd.pack 17 GM PO MORNING Prescribed by: TD PETTIT MD Quetiapine Fumarate (Seroquel) 100 Mg Tablet 50 MG PO 0800, 1400 (Reported) Quetiapine Fumarate (Seroquel) 100 Mg Tablet 200 MG PO HS (Reported) Quetiapine Fumarate (Quetiapine Fumarate) 25 Mg Tablet 25 MG PO DAILYWD ( Reported) Sennosides (Senna) 8.6 Mg Tablet 8.6 MG PO DAILY (Reported) Venlafaxine ER (Effexor XR) 37.5 Mg Cap.er.24h 37.5 MG PO BID (Reported) Warfarin Sodium (Warfarin Sodium) 5 Mg Tablet 5 MG PO DAILY EXCEPT TUESDAY Prescribed by: IGNACIO KHAN MD As needed Albuterol HFA (Proair HFA) 8.5 Gm Hfa.aer.ad 2 PUFFS INHALATION Q4H PRN PRN For Shortness of Breath (Reported) Ipratropium/Albuterol Sulfate (Iprat-Albut 0.5-3(2.5) mg/3 mL Inhalant Soln) 3 Ml Ampul.neb 3 ML IH Q6 PRN PRN For Shortness of Breath (Reported) Followup Plan Disposition: Discharge to Home Follow-up plan - Follow-up with previous Coumadin clinic upon discharge so can decide when to stop Lovenox injections. Discharge Diet: Heart Healthy Patient Instructions - Repeat Blood Cultures obtained 04/24 show No growth after 24 hours. No evidence of infection and no indication for antibiotics. If develop fever, please call your PCP to restart antibiotics. - Continue to bridge with Lovenox injections twice daily until INR therapeutic between 2-3. Follow-up Provider: Cristobal Berkowitz MD Follow-up with PCP in: 1 week Ignacio Khan MD Apr 25, 2017 12:04
--- NOTE | 2017-04-25 12:29 | PCM.PHAPRO ---
Progress Date of Service: Apr 25, 2017 Warfarin dosing Date Apr 23-Apr 24-Apr 05-Apr INR 1.07 1 1.01 0.99 INR change -0.07 0.01 -0.02 Warf Dose 7.5 MG 5MG 7.5MG 7.5MG Malena Brown PharmD Apr 25, 2017 12:29
--- NOTE | 2017-04-25 14:27 | NUR ---
Discharge Pt discharged to home with self at 1405. A&Ox3, NAVA, IV dcd intact, All personal belongings in hand, Hard copy scripts in hand and were also faxed over to pt preferred pharmacy per her request, CareNotes and instructions provided on dc dx, new medications and s/sx to seek medical attention for. Went over lovenox teaching with morning lovenox injection. No questions/concerns left unanswerd at discharge. Pt walked off unit to vehicle; escorted to parking lot.
--- NOTE | 2017-04-25 14:33 | NUR ---
Social Work: Discharge D: EMR reviewed. Pt is on day 9 of hospitalization. Pt educated to get INR checked and RN provided pt education on INR follow-up with PCP. A: Pt who is independent at baseline. P: Pt discharged today via POV. No SW discharge needs identified. DARLYN Esquivel
[2017-04-25] MEDS ORDERED: Warfarin 5 MG, Warfarin 2.5 MG PO ONE ×2 (17:00)
== END 2017-04-25 14:06 | disposition home or self-care (01) | DRG 315 ==
LOC: SED 15:52 → PCC 04-16 00:23 → INTOOBSV 04-16 00:23 → OBSVTOIN 04-16 00:23 → OSC 04-21 16:30
PROVIDERS: ADMIT Specialist; ATTEND Specialist
DX: T82.867A Thrombosis due to cardiac prosthetic devices, implants and grafts, initial encounter (principal); D68.62 Lupus anticoagulant syndrome; I50.42 Chronic combined systolic (congestive) and diastolic (congestive) heart failure; F11.20 Opioid dependence, uncomplicated; J44.1 Chronic obstructive pulmonary disease with (acute) exacerbation; I20.8 Other forms of angina pectoris; D37.8 Neoplasm of uncertain behavior of other specified digestive organs; Z22.322 Carrier or suspected carrier of Methicillin resistant Staphylococcus aureus; Z79.01 Long term (current) use of anticoagulants; Z95.810 Presence of automatic (implantable) cardiac defibrillator; I10 Essential (primary) hypertension; I25.2 Old myocardial infarction; F39 Unspecified mood [affective] disorder; Z87.891 Personal history of nicotine dependence; G89.4 Chronic pain syndrome

== ENCOUNTER 2017-05-07 09:53 | Observation (INO) | payer MEDICARE ==
[2017-05-07] VITALS (7 sets, daily range): BP systolic 100–139; BP diastolic 59–79; PULSE 50–89; RESP 16–20; O2SAT 97–100
[~2017-05-07] VITALS: Ht 152.4 cm; Wt 59.0 kg
[~2017-05-07 09:53] MED LIST changes: +FENT-2 TRANSDERM; +LOV60 SUBQ; -PRAM0.5T3 PO; +QUET25TA73 PO
--- NOTE | 2017-05-07 10:31 | ED.REPORT ---
HPI-General Illness Date of Service May 07, 2017 ED Provider: Brian Whitley MD Pt is a 56 y/o female anticoagulated on Warfarin w/ a hx of CHF s/p AICD placement, COPD on 2L home O2, IgA deficiency, HTN, pericarditis, depression, lupus anticoagulation, presenting to the ED via EMS c/o generalized weakness onset 2 days ago. She fell onto her face this morning because she was so weak. She c/o associated fatigue, SOB, numbness of the hands and feet, intermittent CP , diaphoresis, thick productive cough, nasal congestion, SILVA, lower extremity edema. Pt denies fever, nausea, vomiting, abdominal pain. She lives with her son. She was recently admitted to [facility] from April 16- after presenting to the ED with symptoms of chest pain and shortness of breath and was found to have pacemaker lead vegetation which was thought to be chronic due to thrombus which was causing a COPD exacerbation. Abdominal CT during that admission remarkable for "Probable bilateral patchy pneumonias with small effusions at the lung bases ". Of note, the patient was NOT discharged on antibiotics. She is a poor historian. Nursing Notes Stated Complaint: GENERALIZED WEAKNESS Chief Complaint: General Complaint Nursing Notes Reviewed: Yes Allergies: Coded Allergies: NSAIDS (Non-Steroidal Anti-Inflamma (Verified Allergy, Severe, 02/07/17) Quinolones (Verified Allergy, Severe, ? AVALOX, 02/07/17) ceftriaxone sodium (Verified Allergy, Severe, 02/07/17) codeine (Verified Allergy, Severe, 02/07/17) ibuprofen (Verified Allergy, Severe, 02/07/17) metoclopramide (Verified Allergy, Severe, 02/07/17) metoclopramide HCl (Verified Allergy, Severe, 02/07/17) moxifloxacin HCl (Verified Allergy, Severe, 02/07/17) naproxen (Verified Allergy, Severe, 02/07/17) prochlorperazine edisylate (Verified Allergy, Severe, 02/07/17) prochlorperazine maleate (Verified Allergy, Severe, 02/07/17) sumatriptan (Verified Allergy, Severe, 02/07/17) sumatriptan succinate (Verified Allergy, Severe, 02/07/17) latex (Verified Allergy, Intermediate, RASH,when latex is on her skin for days, 02/07/17) diphenhydramine (Verified Allergy, Unknown, 02/23/17) levofloxacin (Verified Allergy, Unknown, 02/23/17) Cephalosporins (Verified Adverse Reaction, Severe, N/V, 02/07/17) prednisone (Verified Adverse Reaction, Severe, PSYCHOSIS, 02/07/17) prochlorperazine (Verified Adverse Reaction, Severe, AGITATION, 02/07/17) Uncoded Allergies: ADHESIVE TAPES (Allergy, Unknown, 12/24/14) Adhesive tape (Adverse Reaction, Intermediate, rash, 05/26/15) NSAIDS (Adverse Reaction, Unknown, lupus anticoagulation & bleeding disorder IGA defiency, 12/26/14) Scheduled Bisacodyl (Dulcolax) 5 Mg Tablet.dr 5 MG PO DAILY Cyanocobalamin (Cyanocobalamin Injection) 1,000 Mcg/1 Ml Vial 1,000 MCG IM Monthly Fentanyl 75 mcg/hr Patch (Fentanyl 75 mcg/hr Patch) 1 Each Patch.td72 1 PATCH TRANSDERM Q3D Fluticasone Propionate (Flonase Allergy Relief) 50 Mcg/Actuation [place].susp 1 SPRAY NS BID Furosemide (Furosemide) 40 Mg Tablet 40 MG PO DAILY Lisinopril (Lisinopril) 2.5 Mg Tablet 1.25 MG PO BID Lorazepam (Lorazepam) 1 Mg Tablet 1-2 MG PO 4xdaily Magnesium Oxide (Magox 400) 400 Mg Tablet 200 MG PO BID Mirtazapine (Remeron) 30 Mg Tablet 60 MG PO HS Ondansetron (Zofran) 8 Mg Tab 8 MG PO QID Polyethylene Glycol 3350 (Miralax) 17 Gm Powd.pack 17 GM PO MORNING Quetiapine Fumarate (Seroquel) 100 Mg Tablet 50 MG PO 0800, 1400 Quetiapine Fumarate (Seroquel) 100 Mg Tablet 200 MG PO HS Quetiapine Fumarate (Quetiapine Fumarate) 25 Mg Tablet 25 MG PO DAILYWD Sennosides (Senna) 8.6 Mg Tablet 8.6 MG PO DAILY Venlafaxine ER (Effexor XR) 37.5 Mg Cap.er.24h 37.5 MG PO BID Warfarin Sodium (Warfarin Sodium) 5 Mg Tablet 5 MG PO DAILY Scheduled PRN Albuterol HFA (Proair HFA) 8.5 Gm Hfa.aer.ad 2 PUFFS INHALATION Q4H PRN PRN For Shortness of Breath General Time Seen by MD: 10:18 Chief Complaint Weakness Hx Obtained From: Patient, EMS Arrived By: Ambulance Sudden in Onset?: No Onset Occurred: 2 days ago Symptom Duration: Since onset Location: : Chest Quality: Painful Severity: Current: No pain currently Severity: Maximum: Mild Recent Healthcare: Recent doctor visit, Recent hospitalization, Recent testing , Previous diagnosis, Prior workup Similar Sx Previous: Yes Past Medical History Past Medical History History of chronic systolic and diastolic heart failure with AICD pacemaker History of a benign appearing pancreatic neoplasm (GI notes 11/2014 indicate stable over several years in size, although a recommendation for fine needle aspiration was made at that time) COPD on chronic 2L O2 Hypertension Lupus anticoagulation History of IgA deficiency Rectocele prolapse Hemorrhoids - with admission January 19 through January 25 for bleeding, and hemorrhoidectomy H/o diverticulitis and C. Diff H/o pancreatitis H/o pericarditis History of prior C. difficile History of malabsorption History of chronic pain and narcotic use Colon mass GERD Depression Anxiety Past Surgical History AICD pacemaker placed Ablation Bladder suspension Hemorrhoidectomy 12/27/14, status post rectal exam and flexible sigmoidoscopy under general anesthesia on 01/20/2015 for bleeding Sinus surgery Foot surgery Complicated left pelvic surgery at [facility] followed by complicated postoperative course Reports: Cholecystectomy, Hysterectomy, Tonsillectomy Family History father colorectal cancer Smoking History Former Smoker Social History Alcohol Use: Denies alcohol use Drug Use: THC Ambulatory Status Independent Review of Systems Full Review of Systems Constitutional: Reports: Fatigue, Weakness - generalized, Denies: Fever Respiratory: Reports: Prod cough, clear (does not want to specify color), Shortness of breath Cardiovascular: Reports: Chest pain, Edema GI: Denies: Abdominal pain, Nausea, Vomiting Skin: Reports Diaphoresis Neurologic: Reports: Headache, Numbness Complete sys rev & neg: except as marked. Physical Exam Vital Signs Vital Signs Date Time Temp Pulse Resp B/P Pulse Ox O2 Delivery O2 Flow Rate FiO2 05/07/17 15:43 36.6 67 16 110/69 98 Room Air 2 05/07/17 14:59 67 16 110/69 98 Room Air 05/07/17 11:08 82 18 134/78 100 Nasal Cannula 2 05/07/17 10:12 36.6 78 20 138/78 97 Nasal Cannula 2 Initial VS: Reviewed, Vital signs normal Head / Eyes: Atraumatic, Normocephalic ENT: Mucous membranes moist, Conjunctiva normal, No scleral icterus Neck: Supple, Full range of motion Cardiovascular: Regular rate & rhythm, Heart sounds normal, Intact distal pulses Extremities: Vascular intact, Neuro intact, No swelling Skin: Warm, Dry, No cyanosis Neurologic: Alert, Oriented, Nonfocal General/Constitutional: Awake, Alert, No acute distress, Cooperative, Not toxic appearing Somnolent Respiratory / Chest: Breath sounds = bilat, No respiratory distress, No rales, No rhonchi, No wheezing, No stridor Decreased breath sounds at the bases Abdomen: Atraumatic, Soft, No guarding, No rebound Tenderness/Guarding/Rebound: Positive: Tender diffuse (mild) Psychiatric: Mood NL Odd affect Interpretation & Diagnostics Lab Results Interpretation Result Diagram: 05/07/17 1052 05/07/17 1052 Test 05/07/17 10:52 White Blood Count 4.2th/mm3 (3.8-10.1) Red Blood Count 4.56mil/mm3 (3.90-5.20) Hemoglobin 12.5g/dL (12.0-15.6) Hematocrit 37.3% (35.0-46.0) Mean Corpuscular Volume 81.8fL (81-100) Mean Corpuscular Hemoglobin 27.4pg (27.0-35.0) Mean Corpuscular Hemoglobin Concent 33.5% (32.0-37.0) Red Cell Distribution Width 13.8% (12.3-15.4) Platelet Count 166bil/L (150-400) Neutrophils (%) (Auto) 71.6% (40-74) Lymphocytes (%) (Auto) 23.2% (14-46) Monocytes (%) (Auto) 4.5% (4-12) Eosinophils (%) (Auto) 0% (0-5) Basophils (%) (Auto) 0.5% (0-3) Prothrombin Time 17.8sec (8.1-12.5) Prothromb Time International Ratio 1.65ratio D-Dimer 0.89mg/L FEU (<0.50) Sodium Level 137mEq/L (134-144) Potassium Level 4.2mEq/L (3.5-5.2) Chloride Level 97mEq/L (97-108) Carbon Dioxide Level 23mmol/L (18-29) Blood Urea Nitrogen 18mg/dL (6-24) Creatinine 1.15mg/dL (0.57-1.00) Estimat Glomerular Filtration Rate 70mL/min (>59) Glucose Level 115mg/dL (60-99) Lactic Acid Level 0.9mmol/L (0.4-2.0) Calcium Level 8.9mg/dL (8.5-10.1) Magnesium Level 2.0mg/dL (1.6-2.6) Total Bilirubin 0.3mg/dL (0.0-1.2) Aspartate Amino Transf (AST/SGOT) 16U/L (0-50) Alanine Aminotransferase (ALT/SGPT) 11U/L (0-32) Alkaline Phosphatase 80U/L (25-150) Troponin T 0.010ug/L (0.0-0.011) Pro-B-Type Natriuretic Peptide 516.7pg/mL (0-287) Total Protein 7.1g/dL (6.4-8.4) Albumin 3.8g/dL (3.4-5.0) ECG Interpretation Time: 10:35 Interpreted by: ED physician Normal ECG Interpretation: Normal ECG w/ rate of... (75), Normal rate, Normal sinus rhythm, No acute ischemic changes, Normal QRS, Normal axis, Normal intervals, Adequate tracing X-Ray Chest Interpretation Chest Xray Interpretation: IMPRESSION: Source of new shortness of breath is not seen. Chronic mild elevation of the left hemidiaphragm, pacemaker and dual chamber leads appear normal Dictated by: Jimmy Foster M.D. on 05/07/2017 at 11:54 Approved by: Jimmy Foster M.D. on 05/07/2017 at 11:55 View: Portable, 1 view Interpretation / Wet Read by: Interpret - Radiologist CT Head Interpretation IMPRESSION: No trauma found. No intracranial hemorrhage identified. Dictated by: Jimmy Foster M.D. on 05/07/2017 at 14:09 Approved by: Jimmy Foster M.D. on 05/07/2017 at 14:10 Study: Head CT no contrast Interpretation / Wet Read by: Interpret - Radiologist CT Chest Interpretation IMPRESSION: No pulmonary embolus seen. Pacemaking device and dual chamber leads appear normal. Dictated by: Jimmy Foster M.D. on 05/07/2017 at 14:06 Approved by: Jimmy Foster M.D. on 05/07/2017 at 14:09 Study type: CT pulm angiogram Interpretation / Wet Read by: Interpret - Radiologist Re-Eval/Medical Decision Med Decision/Clinical Course 56-year-old female history of IgA deficiency, COPD, heart failure, pacemaker presenting with a syncopal event earlier today. She had a recent hospitalization for a pacemaker education that was deemed to be unlikely infectious. Today she reports difficulty breathing chest pain and passing out. She is a very poor historian and refuses to give further history. Her workup here shows no acute cause for her syncopal event. She does have a pacemaker. Patient requests to be admitted. She will be admitted for syncopal event. Source of Hx: Old records Time of Eval: 15:00 Re-Evaluation/Progress Note: Pt rechecked. Informed pt of need for admission. Pt understands and agrees with need for admission. All questions addressed. Consultation : Referral / Consult Name: Russ Dalton MD Consulted With: Hospitalist Call Returned at: 15:25 Leader Assembler: Will see patient, Agrees with eval, Agrees with plan, Accepts admit Counseled Regarding: Diagnosis, Lab results, Need for admission Discharge & Departure Primary Impression: Syncope Syncope type: unspecified Qualified Code: R55 - Syncope and collapse Additional Impression: Generalized weakness Disposition: ADMITTED TO HOSPITAL Discharge Condition All VS Reviewed: Yes Condition: Stable Referrals: Cristobal Berkowitz MD (PCP) Scribe Attestation Portions of this note were transcribed by Ector Soria. I, Dr. Whitley personally performed the history, physical exam and medical decision-making; I reviewed and confirmed the accuracy of the information in the transcribed note. copies to: Cristobal Berkowitz MD, Ben M MD May 07, 2017 10:31 ECTOR SORIA May 07, 2017 10:36
[2017-05-07 11:11] LABS: Mean Corpuscular Hemoglobin 27.4 pg (27.0-35.0); Mean Corpuscular Volume 81.8 fL (81-100)
[2017-05-07 11:12] LABS: BASOPHILS % (AUTO) 0.5 % (0-3); EOSINOPHILS % (AUTO) 0 % (0-5); MONOCYTES % (AUTO) 4.5 % (4-12); NEUTROPHILS % (AUTO) 71.6 % (40-74); Platelet Count 166 bil/L (150-400)
[2017-05-07 11:25] LABS: INR 1.65 ratio
[2017-05-07 11:39] LABS: TROPONIN T 0.01 ug/L (0.0-0.011)
--- NOTE | 2017-05-07 11:57 | DRSVH ---
PROCEDURE: X-RAY CHEST ONE VIEW, PORTABLE ([id number]) INDICATIONS: dyspnea TECHNIQUE: One view of the chest was acquired. COMPARISON: [facility], CR, XR CHEST 2VW, 04/15/2017, 17:50. [facility], CR, XR CHEST 1VW (PORTABLE), 03/03/2017, 11:35. [facility], CR, XR CHEST 1VW (PORTABLE), 02/01, 15:39. FINDINGS: Surgical changes and devices: Pacemaking device and dual chamber leads stable over time. Lungs and pleura: No pleural effusions or pneumothorax. Lungs are clear with chronic mild to modera te asymmetric elevation of the left diaphragm also stable over time. Mediastinum: Mediastinal contours appear normal. Heart size is normal. Bones and chest wall: No suspicious bony lesions. Overlying soft tissues appear unremarkable. IMPRESSION: Source of new shortness of breath is not seen. Chronic mild elevation of the left hemid iaphragm, pacemaker and dual chamber leads appear normal Dictated by: Jimmy Foster M.D. on 05/07/2017 at 11:54 Approved by: Jimmy Foster M.D. on 05/07/2017 at 11:55
[2017-05-07] MEDS ORDERED: 0.9% Sodium Chloride 1,000 ML IV ONE (12:25)
[2017-05-07] MEDS ORDERED: WARF5TAB7 PO (12:49)
--- NOTE | 2017-05-07 14:10 | DRSVH ---
PROCEDURE: CT ANGIO CHEST PULMONARY EMBOLISM ([id number]) INDICATIONS: dyspnea elevated dimer TECHNIQUE: After the administration of intravenous contrast, 2 mm thick sections acquired from the pulmonary api danae to the posterior costophrenic angles. 3-dimensional maximum intensity projection (MIP) coronal a nd sagittal reformats were then acquired through the thorax. For radiation dose reduction, the follo wing was used: automated exposure control, adjustment of mA and/or kV according to patient size. COMPARISON: [facility], CR, XR CHEST 1VW (PORTABLE), 05/07/2017, 10:50. [facility], CT, CT ANGIO CHEST PE, 08/03/2015, 15:23. FINDINGS: Image quality: Excellent. Pulmonary arteries: Pulmonary arteries are normal in size, and demonstrate no intraluminal filling d efects to suggest central pulmonary embolism. Lungs and pleura: Lungs are clear. No pleural effusions or pneumothorax. Central and peripheral ai rways are patent. Mediastinum: Heart size is normal, without pericardial effusion. No mediastinal or hilar adenopathy . Thoracic aorta is normal in caliber and enhancement. Esophagus is normal in caliber, without hiat al hernia. Bones and chest wall: No suspicious bony lesions. Ribs and thoracic spine appear intact throughout. Thyroid gland appears normal where well visualized. No axillary or supraclavicular adenopathy. Abdomen: Visualized upper abdominal solid organs appear normal in the early arterial phase of enhanc ement. IMPRESSION: No pulmonary embolus seen. Pacemaking device and dual chamber leads appear normal. Dictated by: Jimmy Foster M.D. on 05/07/2017 at 14:06 Approved by: Jimmy Foster M.D. on 05/07/2017 at 14:09
--- NOTE | 2017-05-07 14:11 | DRSVH ---
PROCEDURE: CT BRAIN WITHOUT CONTRAST ([id number]) INDICATIONS: trauma on coumadin TECHNIQUE: Noncontrast 4.5 mm thick angled axial sections acquired from the foramen magnum to the vertex, with c oronal reformats. COMPARISON: [facility], CT, CT ANGIO BRAIN AND NECK, 04/17/2017, 12:54. FINDINGS: Image quality: Excellent. CSF spaces: Basal cisterns are patent. No extra-axial fluid collections. Ventricles are normal in size and shape. Brain: No midline shift. No intracranial masses or hemorrhage. Isaac-white matter interface is norm al. Skull and face: Calvarium and visualized facial bones are intact, without suspicious lesions. Sinuses: Visualized sinuses and mastoids are clear. IMPRESSION: No trauma found. No intracranial hemorrhage identified. Dictated by: Jimmy Foster M.D. on 05/07/2017 at 14:09 Approved by: Jimmy Foster M.D. on 05/07/2017 at 14:10
[2017-05-07] MEDS ORDERED: Ondansetron 2 mg/mL 2 mL Inj IVPUSH PRN ×2 (15:30→16:00)
[2017-05-07] MEDS ORDERED: Alum-Mag Hydrox-Simeth 30 mL Suspension PO PRN ×2 (15:30→16:00)
[2017-05-07] MEDS ORDERED: _LORazepam 1 mg Tablet PO PRN (16:00)
[2017-05-07] MEDS ORDERED: Polyethylene Glycol (PEG) 17 Gm Powder PO PRN (16:00)
[2017-05-07] MEDS ORDERED: Albuterol HFA 60 Puff 8 Gm Inhaler INHALATION PRN (16:00)
--- NOTE | 2017-05-07 16:10 | NUR ---
I was informed by the patient, with the tissue recovery technician present, that there are people the patient wants restricted from visiting her while in the hospital. I reminded the patient of her right to be placed as private in the hospital directory to restrict information available. Although the patient declined, stating her other family members had a hard time reaching her and she "didn't want that to happen". I encouraged her to inform her family directly and give them the room phone number provided to her, tho she still insisted that she didn't want to request being private in the directory. This was reported to her primary RN. Addendum: 05/07/17 at 1702 by MDAHAVI PHILLIPS CNA Amended: Links added.
--- NOTE | 2017-05-07 16:17 | PCM.HPMED ---
Subjective Date of Service May 07, 2017 Primary Provider: Admitting Physician: Russ Dalton MD Primary Care Physician: Cristobal Berkowitz MD Attending Physician: Russ Dalton MD Admit Status: From the Emergency Department, 23-Hour Observation, Admit to Red Team Chief Complaint: Generalized weakness/2 days History of Present Illness: 56-year-old lady with extensive medical history which includes systolic and diastolic CHF status post AICD, lupus anticoagulant, history of IgA deficiency, history of chronic pain and narcotic use, COPD on home oxygen, hypertension, history of PE x2, history of cardiac arrest presented to the emergency room due to generalized weakness of 2 days. She states she has been dealing with a lot of stress at home due to her living situation. Her 20-year-old son moved into her place with his 20-year-old girlfriend and their child recently. She states her son does not care about her and she was trying to get his attention and asking him to help her. She stayed in her bedroom since without much food or drink. She kept telling him that she is not feeling well but she states ' he does not care as long as you are breathing ". Her He-ijerei-nf-law ( who is grandma to her son ) also corroborates his story. She states patient's son and his girlfriend used to live with her before they moved to the patient's house and are very difficult to deal with. She has been feeling generally weak for the last 2 days. Today patient went into living room trying to get her son's attention and felt lightheaded and fell to the floor which prompted ED visit. She had an episode of epigastric pain yesterday but denies any chest pain. Denies worsening of dyspnea. Denies fever. Denies any urinary complaint of note she was recently hospitalized at [facility] for chest pain and was found to have pacemaker vegetation. No evidence of infection and vegetation was presumed to be thrombus from hypercoagulable state ED course: Unremarkable vitals and exam. Labs unremarkable except elevated d- dimer CTA chest negative for PE. CT brain Negative Review of Systems: A comprehensive review of systems performed, pertinent positives and negatives included in history of present illness Allergies Coded Allergies: NSAIDS (Non-Steroidal Anti-Inflamma (Verified Allergy, Severe, 02/07/17) Quinolones (Verified Allergy, Severe, ? AVALOX, 02/07/17) ceftriaxone sodium (Verified Allergy, Severe, 02/07/17) codeine (Verified Allergy, Severe, 02/07/17) ibuprofen (Verified Allergy, Severe, 02/07/17) metoclopramide (Verified Allergy, Severe, 02/07/17) metoclopramide HCl (Verified Allergy, Severe, 02/07/17) moxifloxacin HCl (Verified Allergy, Severe, 02/07/17) naproxen (Verified Allergy, Severe, 02/07/17) prochlorperazine edisylate (Verified Allergy, Severe, 02/07/17) prochlorperazine maleate (Verified Allergy, Severe, 02/07/17) sumatriptan (Verified Allergy, Severe, 02/07/17) sumatriptan succinate (Verified Allergy, Severe, 02/07/17) latex (Verified Allergy, Intermediate, RASH,when latex is on her skin for days, 02/07/17) diphenhydramine (Verified Allergy, Unknown, 02/23/17) levofloxacin (Verified Allergy, Unknown, 02/23/17) Cephalosporins (Verified Adverse Reaction, Severe, N/V, 02/07/17) prednisone (Verified Adverse Reaction, Severe, PSYCHOSIS, 02/07/17) prochlorperazine (Verified Adverse Reaction, Severe, AGITATION, 02/07/17) Uncoded Allergies: ADHESIVE TAPES (Allergy, Unknown, 12/24/14) Adhesive tape (Adverse Reaction, Intermediate, rash, 05/26/15) NSAIDS (Adverse Reaction, Unknown, lupus anticoagulation & bleeding disorder IGA defiency, 12/26/14) Home Medications Bisacodyl (Dulcolax) 5 Mg Tablet.dr 5 MG PO DAILY Cyanocobalamin (Cyanocobalamin Injection) 1,000 Mcg/1 Ml Vial 1,000 MCG IM Monthly Fentanyl 75 mcg/hr Patch (Fentanyl 75 mcg/hr Patch) 1 Each Patch.td72 1 PATCH TRANSDERM Q3D Fluticasone Propionate (Flonase Allergy Relief) 50 Mcg/Actuation [place].susp 1 SPRAY NS BID Furosemide (Furosemide) 40 Mg Tablet 40 MG PO DAILY Lisinopril (Lisinopril) 2.5 Mg Tablet 1.25 MG PO BID Lorazepam (Lorazepam) 1 Mg Tablet 1-2 MG PO 4xdaily Magnesium Oxide (Magox 400) 400 Mg Tablet 200 MG PO BID Mirtazapine (Remeron) 30 Mg Tablet 60 MG PO HS Ondansetron (Zofran) 8 Mg Tab 8 MG PO QID Polyethylene Glycol 3350 (Miralax) 17 Gm Powd.pack 17 GM PO MORNING Quetiapine Fumarate (Seroquel) 100 Mg Tablet 50 MG PO 0800, 1400 Quetiapine Fumarate (Seroquel) 100 Mg Tablet 200 MG PO HS Quetiapine Fumarate (Quetiapine Fumarate) 25 Mg Tablet 25 MG PO DAILYWD Sennosides (Senna) 8.6 Mg Tablet 8.6 MG PO DAILY Venlafaxine ER (Effexor XR) 37.5 Mg Cap.er.24h 37.5 MG PO BID Warfarin Sodium (Warfarin Sodium) 5 Mg Tablet 5 MG PO DAILY Scheduled PRN Albuterol HFA (Proair HFA) 8.5 Gm Hfa.aer.ad 2 PUFFS INHALATION Q4H PRN PRN For Shortness of Breath PMH Recent history of pacemaker lead vegetation, presumed non infectious History of chronic systolic and diastolic heart failure with AICD pacemaker History of a benign appearing pancreatic neoplasm (GI notes 11/2014 indicate stable over several years in size, although a recommendation for fine needle aspiration was made at that time) COPD on chronic 2L O2 Hypertension Lupus anticoagulation History of IgA deficiency H/o diverticulitis H/o pancreatitis H/o pericarditis History of prior C. difficile History of malabsorption History of chronic pain and narcotic use Colon mass GERD Depression Anxiety Surgical History AICD pacemaker placed Ablation Bladder suspension Hemorrhoidectomy 12/27/14, status post rectal exam and flexible sigmoidoscopy under general anesthesia on 01/20/2015 for bleeding Sinus surgery Foot surgery Complicated left pelvic surgery at [facility] followed by complicated postoperative course Reports: Cholecystectomy, Hysterectomy, Tonsillectomy Family History Father and paternal aunt of pancreatic cancer Social History Hx Alcohol Use: No Hx Substance Use: Yes (marijuana) Hx Tobacco Use: No (quit a year ago) Smoking Status: Former Smoker Exam Vital Signs Vital Sign - Last Date Time Temp Pulse Resp B/P Pulse Ox O2 Delivery O2 Flow Rate FiO2 05/07/17 15:43 36.6 67 16 110/69 98 Room Air 2 Exam Gen. patient is lying comfortably in hospital bed,on 2L O2 HEENT: Head is normocephalic atraumatic, Pupils equal and reactive, extraocular movements intact, dry tongue Lungs clear to auscultation bilaterally Heart regular rate and rhythm without murmurs gallops or rubs Abdomen soft nontender without hepatosplenomegaly Extremities pulses are present dorsalis pedis posterior tibialis and radial. tSkin is warm and dry there are no rashes, Psych alert and oriented to person place and time Neuro cranial nerves II through XII are grossly intact Lymph: There is no lymphadenopathy appreciated in the cervical supra infraclavicular regions : no back Lab and Diagnostics Result Diagram: 05/07/17 1052 05/07/17 1052 X-Rays, CTs and MRIs ROCEDURE: CT ANGIO CHEST PULMONARY EMBOLISM ([id number]) INDICATIONS: dyspnea elevated dimer IMPRESSION: No pulmonary embolus seen. Pacemaking device and dual chamber leads appear normal. Dictated by: Jimmy Foster M.D. on 05/07/2017 at 14:06 PROCEDURE: CT BRAIN WITHOUT CONTRAST ([id number]) INDICATIONS: trauma on coumadin IMPRESSION: No trauma found. No intracranial hemorrhage identified. Dictated by: Jimmy Foster M.D. on 05/07/2017 at 14:09 Assessment & Plan 56-year-old lady with extensive medical history which includes systolic and diastolic CHF status post AICD, lupus anticoagulant, history of IgA deficiency, history of chronic pain and narcotic use, COPD on home oxygen, hypertension, history of PE x2, history of cardiac arrest presented to the emergency room due to generalized weakness of 2 days. # Generalized weakness due to dehydration due to poor oral intake -Poor oral intake due to social issues. Patient upset about her living environment . -gentle hydration NS at 60ml/h,low rate of IVF as she has CHF -hold lasix -no evidence of infection,procal in am,afebrile,no leukocytosis # recent PPM lead vegitation,presumed to be thrombus chronic stable issues # systolic and diastolic CHF status post AICD, # lupus anticoagulant, #history of IgA deficiency, #history of chronic pain and narcotic use, # COPD on home oxygen, #hypertension, #history of PE x2 observation status full code dispo:discharge tomorrow copies to: Cristobal Berkowitz MD, Melaku MD May 07, 2017 16:17
[2017-05-07] MEDS ORDERED: Albuterol 2.5 mg/3 mL Inhalation Solution NEB PRN (16:20)
[2017-05-07] MEDS ORDERED: ONDANSETRON 8 MG PO SCH (16:30)
[2017-05-07] MEDS: 0.9% Sodium Chloride 1,000 ML IV SCH (16:33)
[2017-05-07] MEDS: LORazepam 1 mg Tablet PO PRN (16:49)
--- NOTE | 2017-05-07 16:54 | PCM.CONPHA ---
Subjective Requesting Provider: Russ Dalton MD Generalized weakness/2 days Reason for Pharmacy Consult: Anticoagulation Management Assessment/Plan Assessment/Plan Pharmacy to dose warfarin for lupus anticoagulant syndrome with goal INR 2-3: INR today 1.65 HCT/PLT is 37/166 The patient is maintained on warfarin 5mg daily at home. She will receive 5mg warfarin this evening. INRs have been ordered; pharmacy will dose warfarin daily based on the results. Ifrah Aleman [facility] May 07, 2017 16:54
--- NOTE | 2017-05-07 18:42 | NUR ---
Admit Pt brought to room [address] [facility] and was able to slide self over. Pt tearful stating she is 10/10 pain with a headache and nausea. Pt weaned off , connected to NS 60ml/hr. Pt has fentanyl patch she states she applied yesterday 05/06/17, had pharmacy add intervention to change. VSS, NAVA, A&O x 3. 2 PIV on right arm. Pt was positive for MRSA when she was here in April and nasal swab done and sent to lab, per MD don't place pt on precautions. Pt oriented to call light and room. Bed in low, call light in reach, care continues.
--- NOTE | 2017-05-07 19:09 | NUR ---
MJ explained and signed. Copy of BARKER given to pt.
[2017-05-07] MEDS: Fluticasone 0.05% 15 Spray/2 Gm 16 Gm Nasal Spray NASAL SCH (20:04)
[2017-05-07] MEDS: Venlafaxine XR 37.5 mg ER24 Capsule PO SCH (20:05)
[2017-05-07] MEDS ORDERED: [UNRECOGNIZED DRUG - REMARK] NS SCH (20:30)
[2017-05-07] MEDS ORDERED: LISINOPRIL 1.25 MG PO SCH (20:30)
[2017-05-07] MEDS ORDERED: MIRTAZAPINE PO SCH (21:00)
[2017-05-08 00:29] VITALS: BP 97/56; PULSE 54; RESP 16; O2SAT 97
[2017-05-08 03:55] VITALS: BP 92/55; PULSE 69; RESP 16; O2SAT 95
--- NOTE | 2017-05-08 04:25 | NUR ---
Pain/Anxiety Pt tearful and c/o pain 06/12 with start of shift. Talking to sister (Jeaneth WHEATLEY "Dharmeshy")on phone and performing breathing exercises to calm herself down. Pt with chronic pain and c/o headache with security strategist onset per pt. 4mg IVP Morphine, effective, but per pt, takes awhile to take effect despite IV route. Pt requesting Ativan but had previously had it 2 hrs earlier. Pt stating taking it more frequently, but able to hold off. As shift went on, pt calmed down. Eyes puffy and pt exhausted. Pt sleeping at this time, call light in reach - able to make needs known. Care continues.
[2017-05-08] MEDS: LORazepam 1 mg Tablet PO PRN (05:18)
[2017-05-08 05:24] VITALS: BP 107/70; PULSE 73; RESP 16; O2SAT 98
[2017-05-08 05:59] LABS: BASOPHILS % (AUTO) 0.6 % (0-3); EOSINOPHILS % (AUTO) 0 % (0-5); Mean Corpuscular Hemoglobin 27.2 pg (27.0-35.0); Mean Corpuscular Volume 83.8 fL (81-100); NEUTROPHILS % (AUTO) 37.4 % (40-74); Platelet Count 150 bil/L (150-400)
[2017-05-08 06:09] VITALS: PULSE 73
[2017-05-08 06:16] LABS: INR 0.93 ratio
[2017-05-08] MEDS ORDERED: Polyethylene Glycol (PEG) 17 Gm Powder PO SCH (08:30)
[2017-05-08] MEDS: Venlafaxine XR 37.5 mg ER24 Capsule PO SCH (09:22)
[2017-05-08] MEDS: Fluticasone 0.05% 15 Spray/2 Gm 16 Gm Nasal Spray NASAL SCH (09:24)
[2017-05-08] MEDS: 0.9% Sodium Chloride 1,000 ML IV SCH (09:34)
--- NOTE | 2017-05-08 09:38 | PCM.PHAPRO ---
Progress Date of Service: May 08, 2017 Warfarin dosing Date May 08-May INR 1.65 0.93 INR change -0.72 Warf Dose 5mg 5mg A/ Sharp INR drop, no contributing factors identified as to why this drop would have occurred. Possible lab abnormality? P/ Continue with home dosing today and re-evaluate with AM labs tomorrow. Giancarlo Christopher May 08, 2017 09:38
[2017-05-08 10:10] VITALS: PULSE 72
[2017-05-08 10:39] VITALS: BP 118/75; PULSE 78; RESP 15; O2SAT 98
--- NOTE | 2017-05-08 11:03 | NUR ---
Social Work: Initial Assessment/Readiness for Discharge/Multi-Disciplinary Rounds D: EMR reviewed. Please see Initial Assessment linked to this note for more information. Pt is an 56 y/o female admitted [facility] for syncope per H&P. Pt has a readmit risk score of 5. SW met with pt at bedside to conduct initial assessment. Pt was alert and oriented x3. SW explained role and wrote phone number on white board. SW provided "Your Discharge Planning Checklist" and encouraged pt to contact SW for any discharge planning questions. Pt's insurance is [employer] and PCP is Cristobal Berkowitz. Pt gave verbal consent to contact sister Jeaneth Torres [phone] for discharge planning. DPOA/advanced directive ppw discussed - ppw completed and SW encouraged pt to provide a copy to the hospital. Pt does not own or use any DME. Pt is independent with ADLs and drives. Pt discussed in multidisciplinary rounds. Per multidisciplinary rounds, pt is medically stable for discharge home today - no SW needs identified, no MD orders received. A: SW assessed pt's capacity for self-care. SW does not have any concerns for pt's capacity for self-care. Pt is independent with ADLs at baseline. Pt does not have any concerns regarding discharge at this time. P: Pt to discharge home today via POV. No SW needs identified. No MD orders received. SW will continue to follow for needs. DARLYN Esquivel Addendum: 05/08/17 at 1454 by MAXIMO MURRELL SS Amended: Links added.
--- NOTE | 2017-05-08 11:29 | PCM.DIMED ---
Discharge Instructions Date of Service May 08, 2017 Dates of Hospitalization May 07, 2017 at 15:49 Discharge Diagnosis Discharge Diagnosis # Generalized weakness due to dehydration due to poor oral intake -Poor oral intake due to social issues. # recent PPM lead vegitation,presumed to be thrombus chronic stable issues # systolic and diastolic CHF status post AICD, # lupus anticoagulant, #history of IgA deficiency, #history of chronic pain and narcotic use, # COPD on home oxygen, #hypertension, #history of PE x2 Diet Discharge Diet: Low fat, Low Sodium, Heart Healthy, Diabetic Activity Discharge Activity: Limited until seen by PCP Call your provider Call your provider for: Fever or Chills, Shortness of breath, Bleeding, Chest pain, Vomitting, Excessive diarrhea, Weakness (unilateral) Patient Instructions Patient Instructions You were hospitalized due to dizziness dehydration due to poor oral intake . Please keep your self hydrated .Please continue all your medications including lasix without changes . Please follow up with PCP in 1 week . Follow-up Provider: Cristobal Berkowitz MD Follow-up with PCP in: 1 week Russ Dalton MD May 08, 2017 11:29
[2017-05-08 13:12] LABS: APPEARANCE,URINE CLEAR (CLEAR,HAZY); COLOR,URINE YELLOW (YELLOW); OCCULT BLOOD,URINE NEGATIVE (NEGATIVE); UROBILINOGEN,URINE NORMAL (NORMAL)
--- NOTE | 2017-05-08 13:41 | PCM.DC.MED ---
Discharge Summary Date of Service May 08, 2017 Dates of Hospitalization Date of Hospital Admission May 07, 2017 at 15:49 Date of Discharge: May 08, 2017 Providers: Admitting Physician: Russ Dalton MD Primary Care Physician: Cristobal Berkowitz MD Attending Physician: Russ Dalton MD Diagnosis at Time of Discharge Diagnosis at Time of Discharge # Generalized weakness due to dehydration due to poor oral intake -Poor oral intake due to social issues. # recent PPM lead vegitation,presumed to be thrombus chronic stable issues # systolic and diastolic CHF status post AICD, # lupus anticoagulant, #history of IgA deficiency, #history of chronic pain and narcotic use, # COPD on home oxygen, #hypertension, #history of PE x2 Procedures XRay, CTs & MRIs ROCEDURE: CT ANGIO CHEST PULMONARY EMBOLISM ([id number]) INDICATIONS: dyspnea elevated dimer IMPRESSION: No pulmonary embolus seen. Pacemaking device and dual chamber leads appear normal. Dictated by: Jimmy Foster M.D. on 05/07/2017 at 14:06 PROCEDURE: CT BRAIN WITHOUT CONTRAST ([id number]) INDICATIONS: trauma on coumadin IMPRESSION: No trauma found. No intracranial hemorrhage identified. Dictated by: Jimmy Foster M.D. on 05/07/2017 at 14:09 Brief History 56-year-old lady with extensive medical history which includes systolic and diastolic CHF status post AICD, lupus anticoagulant, history of IgA deficiency, history of chronic pain and narcotic use, COPD on home oxygen, hypertension, history of PE x2, history of cardiac arrest presented to the emergency room due to generalized weakness of 2 days. She states she has been dealing with a lot of stress at home due to her living situation. Her 20-year-old son moved into her place with his 20-year-old girlfriend and their child recently. She states her son does not care about her and she was trying to get his attention and asking him to help her. She stayed in her bedroom since without much food or drink. She kept telling him that she is not feeling well but she states ' he does not care as long as you are breathing ". Her Iu-rpnxxc-za-law ( who is grandma to her son ) also corroborates his story. She states patient's son and his girlfriend used to live with her before they moved to the patient's house and are very difficult to deal with. She has been feeling generally weak for the last 2 days. Today patient went into living room trying to get her son's attention and felt lightheaded and fell to the floor which prompted ED visit. She had an episode of epigastric pain yesterday but denies any chest pain. Denies worsening of dyspnea. Denies fever. Denies any urinary complaint of note she was recently hospitalized at [facility] for chest pain and was found to have pacemaker vegetation. No evidence of infection and vegetation was presumed to be thrombus from hypercoagulable state ED course: Unremarkable vitals and exam. Labs unremarkable except elevated d- dimer CTA chest negative for PE. CT brain Negative Hospital Course 56-year-old lady with extensive medical history which includes systolic and diastolic CHF status post AICD, lupus anticoagulant, history of IgA deficiency, history of chronic pain and narcotic use, COPD on home oxygen, hypertension, history of PE x2, history of cardiac arrest presented to the emergency room due to generalized weakness of 2 days. # Generalized weakness due to dehydration due to poor oral intake -Poor oral intake due to social issues. Patient upset about her living environment . -gentle hydration NS at 60ml/h,low rate of IVF as she has CHF -held lasix . Symptoms improved patient able to walk by herself without issues. Resume upon discharge -no evidence of infection,procal negative,afebrile,no leukocytosis. Patient asks Dr viera to be consulted on the case and she stay in hospital given prior history of pacemaker lead vegetation. No evidence of infection. No need for infectious disease consult at this time # recent PPM lead vegitation,presumed to be thrombus chronic stable issues # systolic and diastolic CHF status post AICD, # lupus anticoagulant, -Continue home warfarin #history of IgA deficiency, #history of chronic pain and narcotic use, # COPD on home oxygen, #hypertension, #history of PE x2 observation status full code dispo:discharge home Advised to follow-up with PCP in 3-5 days Exam Vital Signs (Last) Date Time Temp Pulse Resp B/P Pulse Ox O2 Delivery O2 Flow Rate FiO2 05/08/17 10:39 36.9 78 15 118/75 98 Room Air 05/07/17 15:43 2 Exam Gen. patient is lying comfortably in hospital bed,on 2L O2 HEENT: Head is normocephalic atraumatic, Pupils equal and reactive, extraocular movements intact, dry tongue Lungs clear to auscultation bilaterally Heart regular rate and rhythm without murmurs gallops or rubs Abdomen soft nontender without hepatosplenomegaly Extremities pulses are present dorsalis pedis posterior tibialis and radial. tSkin is warm and dry there are no rashes, Psych alert and oriented to person place and time Neuro cranial nerves II through XII are grossly intact Lymph: There is no lymphadenopathy appreciated in the cervical supra infraclavicular regions : no back Test 05/07/17 10:52 05/08/17 00:20 05/08/17 04:50 05/08/17 05:35 D-Dimer 0.89mg/L FEU (<0.50) Lactic Acid Level 0.9mmol/L (0.4-2.0) Troponin T 0.010ug/L (0.0-0.011) Pro-B-Type Natriuretic Peptide 516.7pg/mL (0-287) Urine Color Yellow (YELLOW) Urine Appearance Clear (CLEAR,HAZY) Urine pH 6.0 (5.0-8.0) Urine Specific [place] 1.010 (1.003-1.035) Urine Protein Negativemg/dL (NEG,TRACE) Urine Glucose (UA) Negativemg/dL (NEGATIVE) Urine Ketones Negativemg/dL (NEGATIVE) Urine Occult Blood Negative (NEGATIVE) Urine Nitrite Negative (NEGATIVE) Urine Bilirubin Negative (NEGATIVE) Urine Urobilinogen Normalmg/dL (NORMAL) Urine Leukocyte Esterase Negative (NEGATIVE) Urine RBC 0-2/hpf (0-2) Urine WBC 0-5/hpf (0-5) Urine Epithelial Cells Occasional/hpf (NONE-MOD) Urine Crystals None seen (NONE SEEN) Urine Bacteria None/hpf (NONE-FEW) Urine Hyaline Casts None/lpf (NONE) Urine Granular Casts None seen (NONE SEEN) Urine Waxy Casts None seen (NONE SEEN) Urine Red Blood Cell Casts None seen (NONE SEEN) Urine White Blood Cell Casts None seen (NONE SEEN) Urine Mucus None seen (None Seen) Urine Trichomonas None seen (NONE SEEN) Urine Yeast None (NONE SEEN) Urinalysis Comment None Urine Culture Reflexed Not indicated Hold Urine Received (Received) White Blood Count 3.4th/mm3 (3.8-10.1) Red Blood Count 3.90mil/mm3 (3.90-5.20) Hemoglobin 10.6g/dL (12.0-15.6) Hematocrit 32.7% (35.0-46.0) Mean Corpuscular Volume 83.8fL (81-100) Mean Corpuscular Hemoglobin 27.2pg (27.0-35.0) Mean Corpuscular Hemoglobin Concent 32.4% (32.0-37.0) Red Cell Distribution Width 13.8% (12.3-15.4) Platelet Count 150bil/L (150-400) Neutrophils (%) (Auto) 37.4% (40-74) Lymphocytes (%) (Auto) 56.0% (14-46) Monocytes (%) (Auto) 6.0% (4-12) Eosinophils (%) (Auto) 0% (0-5) Basophils (%) (Auto) 0.6% (0-3) Sodium Level 139mEq/L (134-144) Potassium Level 4.2mEq/L (3.5-5.2) Chloride Level 102mEq/L (97-108) Carbon Dioxide Level 23mmol/L (18-29) Blood Urea Nitrogen 16mg/dL (6-24) Creatinine 1.04mg/dL (0.57-1.00) Estimat Glomerular Filtration Rate 79mL/min (>59) Glucose Level 95mg/dL (60-99) Calcium Level 8.2mg/dL (8.5-10.1) Magnesium Level 2.0mg/dL (1.6-2.6) Total Bilirubin 0.2mg/dL (0.0-1.2) Aspartate Amino Transf (AST/SGOT) 17U/L (0-50) Alanine Aminotransferase (ALT/SGPT) 9U/L (0-32) Alkaline Phosphatase 68U/L (25-150) Total Protein 6.1g/dL (6.4-8.4) Albumin 3.2g/dL (3.4-5.0) Procalcitonin 0.02ng/mL (0.00-0.08) Prothrombin Time 9.9sec (8.1-12.5) Prothromb Time International Ratio 0.93ratio Discharge Medications Discharge Medications Bisacodyl (Dulcolax) 5 Mg Tablet.dr 5 MG PO DAILY (Reported) Cyanocobalamin (Cyanocobalamin Injection) 1,000 Mcg/1 Ml Vial 1,000 MCG IM Monthly (Reported) Fentanyl 75 mcg/hr Patch (Fentanyl 75 mcg/hr Patch) 1 Each Patch.td72 1 PATCH TRANSDERM Q3D (Reported) Fluticasone Propionate (Flonase Allergy Relief) 50 Mcg/Actuation [place].susp 1 SPRAY NS BID (Reported) Furosemide (Furosemide) 40 Mg Tablet 40 MG PO DAILY (Reported) Lisinopril (Lisinopril) 2.5 Mg Tablet 1.25 MG PO BID (Reported) Lorazepam (Lorazepam) 1 Mg Tablet 1-2 MG PO 4xdaily (Reported) Magnesium Oxide (Magox 400) 400 Mg Tablet 200 MG PO BID (Reported) Mirtazapine (Remeron) 30 Mg Tablet 60 MG PO HS (Reported) Ondansetron (Zofran) 8 Mg Tab 8 MG PO QID (Reported) Polyethylene Glycol 3350 (Miralax) 17 Gm Powd.pack 17 GM PO MORNING Prescribed by: TD PETTIT MD Quetiapine Fumarate (Seroquel) 100 Mg Tablet 50 MG PO 0800, 1400 (Reported) Quetiapine Fumarate (Seroquel) 100 Mg Tablet 200 MG PO HS (Reported) Quetiapine Fumarate (Quetiapine Fumarate) 25 Mg Tablet 25 MG PO DAILYWD ( Reported) Sennosides (Senna) 8.6 Mg Tablet 8.6 MG PO DAILY (Reported) Venlafaxine ER (Effexor XR) 37.5 Mg Cap.er.24h 37.5 MG PO BID (Reported) Warfarin Sodium (Warfarin Sodium) 5 Mg Tablet 5 MG PO DAILY (Reported) As needed Albuterol HFA (Proair HFA) 8.5 Gm Hfa.aer.ad 2 PUFFS INHALATION Q4H PRN PRN For Shortness of Breath (Reported) Followup Plan Disposition: Home Discharge Diet: Low fat, Low Sodium, Heart Healthy, Diabetic Discharge Activity: Limited until seen by PCP Patient Instructions You were hospitalized due to dizziness dehydration due to poor oral intake . Please keep your self hydrated .Please continue all your medications including lasix without changes . Please follow up with PCP in 1 week . Follow-up Provider: Cristobal Berkowitz MD Follow-up with PCP in: 1 week copies to: Cristobal Berkowitz MD, Melaku MD May 08, 2017 13:40
--- NOTE | 2017-05-08 14:00 | NUR ---
Discharge of patient Reviewed discharge instruction with patient, patient verbalized understanding. Pt stating still feeling weak, MD aware. Pt able to ambulate in room with slow steady gait. Pt discharge via wheelchair with belongings and instructions. Pt left with mother in law to home self care, per THUMB SEWER, pt hopped out of wheelchair and into truck with no problem. IV and telemetry dc'd before discharge.
--- NOTE | 2017-05-08 14:56 | NUR ---
Social Work: Discharge D: EMR reviewed. Pt is on day 1 of hospitalization. Per multidisciplinary rounds, pt is medically stable for discharge home today, no SW needs identified, no MD orders received. A: SW assessed pt's capacity for self-care. SW does not have any concerns for pt's capacity for self-care. Pt is independent with ADLs at baseline. P: Pt discharged home today with [id number] via POV. No SW needs identified. No MD orders received. DARLYN Esquivel
== END 2017-05-08 14:09 | disposition home or self-care (01) ==
LOC: EDUNIT# 09:53 → EDBD 09:53 → SED 09:53 → OSC 15:49
PROVIDERS: ADMIT Internal Medicine; ATTEND Internal Medicine
DX: R53.1 Weakness (principal); E86.0 Dehydration; I50.40 Unspecified combined systolic (congestive) and diastolic (congestive) heart failure; L93.0 Discoid lupus erythematosus; J44.9 Chronic obstructive pulmonary disease, unspecified; G89.4 Chronic pain syndrome; I50.9 Heart failure, unspecified; D80.2 Selective deficiency of immunoglobulin A [IgA]; K21.9 Gastro-esophageal reflux disease without esophagitis; F32.9 Major depressive disorder, single episode, unspecified; F41.9 Anxiety disorder, unspecified; F12.90 Cannabis use, unspecified, uncomplicated; Z86.711 Personal history of pulmonary embolism; Z95.810 Presence of automatic (implantable) cardiac defibrillator; Z99.81 Dependence on supplemental oxygen; Z79.891 Long term (current) use of opiate analgesic; Z79.01 Long term (current) use of anticoagulants; Z87.891 Personal history of nicotine dependence

== ENCOUNTER 2017-06-07 15:10 | Emergency (ER) | payer MEDICARE ==
[~2017-06-07] VITALS: Ht 162.6 cm; Wt 59.1 kg
[~2017-06-07 15:10] MED LIST changes: -IPRA3AMP IH; -LOV60 SUBQ
[2017-06-07 15:15] VITALS: BP 101/65; PULSE 65; RESP 16; O2SAT 99
[2017-06-07 15:59] LABS: BASOPHILS % (AUTO) 0.7 % (0-3); EOSINOPHILS % (AUTO) 0 % (0-5); MONOCYTES % (AUTO) 6.3 % (4-12); Mean Corpuscular Hemoglobin 27.6 pg (27.0-35.0); Mean Corpuscular Volume 81.4 fL (81-100); NEUTROPHILS % (AUTO) 52.2 % (40-74); Platelet Count 142 bil/L (150-400)
[2017-06-07 16:21] LABS: TROPONIN T < 0.010 ug/L (0.0-0.011)
[2017-06-07 16:31] LABS: Magnesium 1.9 mg/dL (1.6-2.6)
[2017-06-07 16:32] LABS: INR 2.04 ratio
--- NOTE | 2017-06-07 16:56 | DRSVH ---
PROCEDURE: X-RAY CHEST ONE VIEW, PORTABLE ([id number]) INDICATIONS: CHEST PAIN TECHNIQUE: One view of the chest was acquired. COMPARISON: [facility], CR, XR CHEST 1VW (PORTABLE), 05/07/2017, 10:50. FINDINGS: Surgical changes and devices: Left-sided cardiac pacer. Lungs and pleura: No pleural effusions or pneumothorax. Lungs are clear. Elevation of the left hem idiaphragm. Mediastinum: Mediastinal contours appear normal. Heart size is normal. Bones and chest wall: No suspicious bony lesions. Overlying soft tissues appear unremarkable. IMPRESSION: Elevation of the left hemidiaphragm. Dictated by: Jose Szymanski M.D. on 06/07/2017 at 16:54 Approved by: Jose Szymanski M.D. on 06/07/2017 at 16:55
--- NOTE | 2017-06-07 18:12 | ED.REPORT ---
HPI-General Illness Date of Service Jun 07, 2017 ED Provider: KyAdarsh Mani SILVA Pt is a 56 y/o female with a history of CHF, afib, IgA deficiency, COPD, GERD, CT, pacemaker, lupus, and HTN on Warfarin who presents to the ED sent from c/ o L-sided chest pain onset 3 days ago. She describes her chest pain as a heavy pressure that is sharp. Additional symptoms include radiating L-sided neck pain , neck numbness/tingling, palpitations, headaches, left hand numbness/tingling, left ear ache, sore throat, dizziness, shakes, involuntary jerking movements, nausea, diarrhea, and abdominal cramping. She denies fever or cough. She states she had similar symptoms in April 16, 2017, and was told it might have been infection on leads from her pacemaker. Nursing Notes Stated Complaint: EXTREAM HEADACHE,TINGLING IN NECK Chief Complaint: General Complaint Nursing Notes Reviewed: Yes Allergies: Coded Allergies: NSAIDS (Non-Steroidal Anti-Inflamma (Verified Allergy, Severe, 06/07/17) Quinolones (Verified Allergy, Severe, ? AVALOX, 06/07/17) ceftriaxone sodium (Verified Allergy, Severe, 06/07/17) codeine (Verified Allergy, Severe, 06/07/17) ibuprofen (Verified Allergy, Severe, 06/07/17) metoclopramide (Verified Allergy, Severe, 06/07/17) metoclopramide HCl (Verified Allergy, Severe, 06/07/17) moxifloxacin HCl (Verified Allergy, Severe, 06/07/17) naproxen (Verified Allergy, Severe, 06/07/17) prochlorperazine edisylate (Verified Allergy, Severe, 06/07/17) prochlorperazine maleate (Verified Allergy, Severe, 06/07/17) sumatriptan (Verified Allergy, Severe, 06/07/17) sumatriptan succinate (Verified Allergy, Severe, 06/07/17) latex (Verified Allergy, Intermediate, RASH,when latex is on her skin for days, 06/07/17) diphenhydramine (Verified Allergy, Unknown, 06/07/17) levofloxacin (Verified Allergy, Unknown, 06/07/17) Cephalosporins (Verified Adverse Reaction, Severe, N/V, 06/07/17) prednisone (Verified Adverse Reaction, Severe, PSYCHOSIS, 06/07/17) prochlorperazine (Verified Adverse Reaction, Severe, AGITATION, 06/07/17) Uncoded Allergies: ADHESIVE TAPES (Allergy, Unknown, 12/24/14) Adhesive tape (Adverse Reaction, Intermediate, rash, 05/26/15) NSAIDS (Adverse Reaction, Unknown, lupus anticoagulation & bleeding disorder IGA defiency, 12/26/14) Scheduled Bisacodyl (Dulcolax) 5 Mg Tablet.dr 5 MG PO DAILY Cyanocobalamin (Cyanocobalamin Injection) 1,000 Mcg/1 Ml Vial 1,000 MCG IM Monthly Fentanyl 75 mcg/hr Patch (Fentanyl 75 mcg/hr Patch) 1 Each Patch.td72 1 PATCH TRANSDERM Q3D Fluticasone Propionate (Flonase Allergy Relief) 50 Mcg/Actuation [place].susp 1 SPRAY NS BID Furosemide (Furosemide) 40 Mg Tablet 40 MG PO DAILY Lisinopril (Lisinopril) 2.5 Mg Tablet 1.25 MG PO BID Lorazepam (Lorazepam) 1 Mg Tablet 1-2 MG PO 4xdaily Magnesium Oxide (Magox 400) 400 Mg Tablet 200 MG PO BID Mirtazapine (Remeron) 30 Mg Tablet 60 MG PO HS Ondansetron (Zofran) 8 Mg Tab 8 MG PO QID Polyethylene Glycol 3350 (Miralax) 17 Gm Powd.pack 17 GM PO MORNING Quetiapine Fumarate (Seroquel) 100 Mg Tablet 50 MG PO 0800, 1400 Quetiapine Fumarate (Seroquel) 100 Mg Tablet 200 MG PO HS Quetiapine Fumarate (Quetiapine Fumarate) 25 Mg Tablet 25 MG PO DAILYWD Sennosides (Senna) 8.6 Mg Tablet 8.6 MG PO DAILY Venlafaxine ER (Effexor XR) 37.5 Mg Cap.er.24h 37.5 MG PO BID Warfarin Sodium (Warfarin Sodium) 5 Mg Tablet 5 MG PO DAILY Scheduled PRN Albuterol HFA (Proair HFA) 8.5 Gm Hfa.aer.ad 2 PUFFS INHALATION Q4H PRN PRN For Shortness of Breath Methocarbamol (Robaxin-750) 750 Mg Tablet 1-2 TAB PO Q8H PRN PRN For Pain General Time Seen by MD: 18:04 Chief Complaint Chest pain (L-sided) Hx Obtained From: Patient Arrived By: Walk-in Sudden in Onset?: No Onset Occurred: 3 days ago Location: : Chest Quality: Heaviness, Painful, Sharp Severity: Current: Mild Severity: Maximum: Moderate Recent Healthcare: No recent hospitalization, Recent doctor visit Similar Sx Previous: No Past Medical History Past Medical History History of chronic systolic and diastolic heart failure with AICD pacemaker History of a benign appearing pancreatic neoplasm (GI notes 11/2014 indicate stable over several years in size, although a recommendation for fine needle aspiration was made at that time) COPD on chronic 2L O2 Hypertension Lupus anticoagulation History of IgA deficiency Rectocele prolapse Hemorrhoids - with admission January 19 through January 25 for bleeding, and hemorrhoidectomy H/o diverticulitis and C. Diff H/o pancreatitis H/o pericarditis History of prior C. difficile History of malabsorption History of chronic pain and narcotic use Colon mass GERD Depression Anxiety Past Surgical History AICD pacemaker placed Ablation Bladder suspension Hemorrhoidectomy 12/27/14, status post rectal exam and flexible sigmoidoscopy under general anesthesia on 01/20/2015 for bleeding Sinus surgery Foot surgery Complicated left pelvic surgery at [facility] followed by complicated postoperative course Reports: Cholecystectomy, Hysterectomy, Tonsillectomy Family History father colorectal cancer Smoking History Former Smoker Social History Alcohol Use: Denies alcohol use Drug Use: THC Ambulatory Status Independent Review of Systems Neck numbness/tingling Left hand numbness/tingling Involuntary jerking movements A rectal tear s/p rectal seal prolapse surgery Full Review of Systems Constitutional: Denies: Fever Ears / Nose / Throat: Reports: Earache left, Sore throat Respiratory: Denies: Non-productive cough, Prod cough, clear Cardiovascular: Reports: Chest pain (L-sided), Palpitations GI: Reports: Abdominal pain (cramping), Diarrhea, Nausea Musculoskeletal: Reports: Neck pain (L-sided that radiates ) Neurologic: Reports: Dizziness, Headache, Shaking Complete sys rev & neg: except as marked. Physical Exam Vital Signs Vital Signs Date Time Temp Pulse Resp B/P Pulse Ox O2 Delivery O2 Flow Rate FiO2 06/07/17 19:57 69 16 109/45 98 Room Air 06/07/17 19:14 69 16 109/45 98 Room Air 06/07/17 18:31 81 16 130/55 100 Room Air 06/07/17 15:15 37 65 16 101/65 99 Room Air Initial VS: Reviewed Head / Eyes: Atraumatic, Normocephalic Back: No CVA tenderness Extremities: Vascular intact, Neuro intact, No swelling, No tenderness Skin: Warm, Dry, No cyanosis Neurologic: Alert, Oriented, Nonfocal Psychiatric: Mood/affect normal, Behavior normal, Normal thought content General/Constitutional: Awake, Alert ENT: Atraumatic, Airway patent, Mucous membranes moist Neck: Atraumatic, Supple Mild L-sided tenderness and muscle tightness No nuchal rigidity Negative kernig's and brudzinski test Respiratory / Chest: Atraumatic, Breath sounds NL, Breath sounds = bilat, No respiratory distress Cardiovascular: Heart rate NL, Regular rhythm, Heart sounds NL, No murmurs No lower leg edema Abdomen: Atraumatic, Soft Tenderness/Guarding/Rebound: Positive: Tender epigastric (mild) Interpretation & Diagnostics Lab Results Interpretation Result Diagram: 06/07/17 1550 06/07/17 1550 Test 06/07/17 15:50 White Blood Count 4.3th/mm3 (3.8-10.1) Red Blood Count 4.20mil/mm3 (3.90-5.20) Hemoglobin 11.6g/dL (12.0-15.6) Hematocrit 34.2% (35.0-46.0) Mean Corpuscular Volume 81.4fL (81-100) Mean Corpuscular Hemoglobin 27.6pg (27.0-35.0) Mean Corpuscular Hemoglobin Concent 33.9% (32.0-37.0) Red Cell Distribution Width 14.3% (12.3-15.4) Platelet Count 142bil/L (150-400) Neutrophils (%) (Auto) 52.2% (40-74) Lymphocytes (%) (Auto) 40.8% (14-46) Monocytes (%) (Auto) 6.3% (4-12) Eosinophils (%) (Auto) 0% (0-5) Basophils (%) (Auto) 0.7% (0-3) Prothrombin Time 22.1sec (8.1-12.5) Prothromb Time International Ratio 2.04ratio Sodium Level 134mEq/L (134-144) Potassium Level 4.0mEq/L (3.5-5.2) Chloride Level 95mEq/L (97-108) Carbon Dioxide Level 25mmol/L (18-29) Blood Urea Nitrogen 13mg/dL (6-24) Creatinine 1.07mg/dL (0.57-1.00) Estimat Glomerular Filtration Rate 76mL/min (>59) Glucose Level 89mg/dL (60-99) Calcium Level 8.8mg/dL (8.5-10.1) Magnesium Level 1.9mg/dL (1.6-2.6) Total Bilirubin 0.3mg/dL (0.0-1.2) Aspartate Amino Transf (AST/SGOT) 17U/L (0-50) Alanine Aminotransferase (ALT/SGPT) 12U/L (0-32) Alkaline Phosphatase 72U/L (25-150) Troponin T < 0.010ug/L (0.0-0.011) Pro-B-Type Natriuretic Peptide 438.9pg/mL (0-287) Total Protein 7.5g/dL (6.4-8.4) Albumin 3.8g/dL (3.4-5.0) Hold Rosario Top Tube Received (Received) ECG Interpretation ECG Interpretation: Sinus rhythm, rate 88 Multiform PVCs Left atrial enlargement When compared with previous, PVCs are new Time: 15:33 Interpreted by: ED physician X-Ray Chest Interpretation Chest Xray Interpretation: IMPRESSION: Elevation of the left hemidiaphragm. Dictated by: Jose Szymanski M.D. on 06/07/2017 at 16:54 Approved by: Jose Szymanski M.D. on 06/07/2017 at 16:55 View: Portable, 1 view Interpretation / Wet Read by: Interpret - Radiologist Re-Eval/Medical Decision Med Decision/Clinical Course 56-year-old female with a complex medical history including pancreatitis, IgA deficiency, lupus anticoagulant on warfarin, history of pericarditis, systolic and diastolic heart failure with an AICD pacemaker in place with a reported history 2 months ago of potential pacemaker lead infection presents with several days of left-sided neck pain and headache. She cannot recall any trauma to her neck. She denies any fevers or chills. She has no signs of nuchal rigidity/meningitis. She also associates some mild chest pressure with her symptoms. Labs do not reveal any infectious markers. Cardiac evaluation reveals a normal EKG although there are an increased number of PVCs seen today. Her vitals are normal with a blood pressure predominantly in the 110s over 50s. She is feeling a little better after Tylenol and a muscle relaxer here. I considered interrogating her pacemaker, but since the only abnormality seen on the EKG and telemetry monitoring for 3-1/2 hours were PVCs, I elected to forego this. Lab studies are at baseline for her with no significant abnormalities. She has a PCP here locally and she notes she should be able to be seen within the next 2-3 days for follow-up. She understands and agrees that she needs to come back if she has new or worsening symptoms. Source of Hx: Old records Time of Eval: 19:34 Re-Evaluation/Progress Note: Pt rechecked. Vital signs reviewed. There was no nuchal rigidity, and negative kernig's and brudzinski test. Pt thinks that muscle relaxers helped. Discussed plan for discharge. Pt understands and agrees with plan. F/U instructions and RTER warnings given. All questions addressed at this time. Counseled Regarding: Diagnosis, Lab results, Need for follow-up, When/why to return to ED Discharge & Departure Primary Impression: Neck muscle strain Encounter type: initial encounter Qualified Code: S16.1XXA - Strain of muscle, fascia and tendon at neck level, initial encounter Ruled Out: Acute coronary syndrome Disposition: Home (ERASED) Discharge Condition All VS Reviewed: Yes Condition: Stable Additional Instructions: Thank you for entrusting us with your medical care today. Your emergency department evaluation today including examination, lab work, EKG , and chest X-ray are reassuring. There is no apparent dangerous cause for your symptoms at this time. Take Robaxin 750 mg 1-2 tabs every 8 hours as needed for neck pain. Please call Dr. Berkowitz tomorrow in order to schedule a follow-up appointment for a recheck within the next 2-3 days. Please return to the emergency department for any new or worsening conditions including any difficulty breathing, chest pain, worsening headache, lightheadedness, or weakness. Referrals: Cristobal Berkowitz MD (PCP) Scribe Attestation Portions of this note were transcribed by Margaux Mondragon. I, Dr. Mcpherson, personally performed the history, physical exam and medical decision-making; I reviewed and confirmed the accuracy of the information in the transcribed note. copies to: Cristobal Berkowitz MD, Gary R DO Jun 07, 2017 18:12 Margaux Mondragon Jun 07, 2017 18:20 Margaux Mondragon Jun 07, 2017 18:20
[2017-06-07 18:31] VITALS: BP 130/55; PULSE 81; RESP 16; O2SAT 100
[2017-06-07 19:14] VITALS: BP 109/45; PULSE 69; RESP 16; O2SAT 98
[2017-06-07] MEDS ORDERED: METH-313 PO (19:43)
[2017-06-07 19:57] VITALS: BP 109/45; PULSE 69; RESP 16; O2SAT 98
== END 2017-06-07 19:58 | disposition home or self-care (01) ==
LOC: SED 15:10
DX: S16.1XXA Strain of muscle, fascia and tendon at neck level, initial encounter (principal); X58.XXXA Exposure to other specified factors, initial encounter; Y93.9 Activity, unspecified; Y92.9 Unspecified place or not applicable; I11.0 Hypertensive heart disease with heart failure; I50.42 Chronic combined systolic (congestive) and diastolic (congestive) heart failure; I25.2 Old myocardial infarction; K21.9 Gastro-esophageal reflux disease without esophagitis; Z87.891 Personal history of nicotine dependence; Z95.0 Presence of cardiac pacemaker; Z79.01 Long term (current) use of anticoagulants; Z88.1 Allergy status to other antibiotic agents; Z88.5 Allergy status to narcotic agent; Z88.6 Allergy status to analgesic agent; Z88.8 Allergy status to other drugs, medicaments and biological substances